=== PATIENT | female | born 1950 | race Caucasian/White ===

== ENCOUNTER → 2017-02-01 | Outpatient (CLI) | payer OTHER ==
[2017-02-01 13:28] LABS: BASO % 0.8 %; BASO ABS # 0.04 K/uL (0-0.2); COMPLETE YES; HEMATOCRIT 44.4 % (37-47); IG% 0.2 %; LYMPH % 41.9 %; MEAN CELL VOLUME 93.3 fL (80-100); MEAN CORPUSCULAR HEMOGLOBIN 31.5 pg (25-34); MEAN CORPUSCULAR HGB CONC 33.8 g/dl (32-36); MEAN PLATELET VOLUME 10.8 fL (7.4-10.4); MONO % 6.9 %; NEUT % 47.2 %; PLATELET COUNT 205 K/uL (130-400); RED BLOOD COUNT 4.76 M/uL (4.2-5.4); WHITE BLOOD COUNT 5.25 K/uL (4.8-10.8)
[2017-02-01 14:19] LABS: ALT/SGPT 27 U/L (12-78); BLOOD UREA NITROGEN 16 mg/dl (7-18); BUN/CREATININE RATIO 19.6 (10-20); CALCIUM 9.1 mg/dl (8.5-10.1); CARBON DIOXIDE 27 mmol/L (21-32); CHLORIDE 108 mmol/L (98-107); CHOLESTEROL 232 mg/dl (0-200); GLUCOSE 103 mg/dl (70-99); POTASSIUM 4.4 mmol/L (3.5-5.1); SODIUM 141 mmol/L (136-145)
[2017-02-01 14:30] LABS: ALB/GLOB RATIO 1.2 (0.9-2); ALKALINE PHOSPHATASE 94 U/L (45-117); AST/SGOT 19 U/L (15-37); CHOLESTEROL/HDL RATIO 3.7; HDL CHOLESTEROL 63 mg/dl; LDL CHOLESTEROL CALCULATED 138 mg/dl; THYROID STIMULATING HORMONE 0.766 uIu/ml (0.300-4.500); TRIGLYCERIDES 154 mg/dl (0-150); VERY LOW DENSITY LIPOPROT CALC 31 mg/dl
== END | disposition home or self-care (01) ==
LOC: C.LABBC 11:42
PROVIDERS: ATTEND Internal Medicine
DX: M85.80 Other specified disorders of bone density and structure, unspecified site (principal)

== ENCOUNTER → 2017-02-03 | Outpatient (CLI) | payer OTHER ==
--- NOTE | 2017-02-03 10:36 | DIAGNOSTIC IMAGING REPORT ---
THYROID ULTRASOUND HISTORY: Simple goiter. COMPARISON: None. FINDINGS: Right lobe: 4.8 x 2.6 x 2.2 cm. There is a slightly heterogeneous solid nodule at the mid pole measuring 2.6 x 1.8 x 1.7 cm. Left lobe: 5.9 x 2.6 x 2.0 cm. There is a similar-appearing slightly heterogeneous solid nodule measuring 3.6 x 2.5 x 2.2 cm. Isthmus: 2 mm in thickness. No nodules. IMPRESSION: Dominant bilateral thyroid nodules as described above. Ultrasound-guided fine-needle aspiration of bilateral nodules is recommended. Electronically signed by: Jeb Wen M.D. 02/03/2017 10:35 AM Dictated Date/Time: 02/03/2017 10:34 AM
== END | disposition home or self-care (01) ==
LOC: C.ULTR 09:27
PROVIDERS: ATTEND Internal Medicine
DX: E04.0 Nontoxic diffuse goiter (principal)

== ENCOUNTER → 2017-02-09 | Outpatient (CLI) | payer OTHER ==
--- NOTE | 2017-02-09 14:15 | MAMMOGRAPHY REPORT ---
BILATERAL DIGITAL SCREENING MAMMOGRAM WITH CAD: 02/09/2017 CLINICAL HISTORY: Routine screening. Patient has no complaints. TECHNIQUE: Current study was also evaluated with a Computer Aided Detection (CAD) system. Bilateral CC and MLO views were obtained. COMPARISON: Comparison is made to exams dated: 02/05/2016 mammogram, 11/08/2014 mammogram, 09/20/2012 m ammogram, 09/21/2013 mammogram, 09/20/2011 mammogram, and 09/16/2010 mammogram - [facility] ter. BREAST COMPOSITION: The tissue of both breasts is heterogeneously dense, which may obscure small mas ses. FINDINGS: No suspicious masses, calcifications, or areas of architectural distortion are noted in ei ther breast. There has been no significant interval change compared to prior exams. Scattered bilater al benign-appearing calcifications are not significantly changed. IMPRESSION: ACR BI-RADS CATEGORY 2: BENIGN There is no mammographic evidence of malignancy. A 1 year screening mammogram is recommended. The pa tient will receive written notification of the results. Approximately 10% of breast cancers are not detected with mammography. A negative mammographic report should not delay biopsy if a clinically suggestive mass is present. Janet Finch M.D. /:02/09/2017 12:33:59 Heater Installer: Fernanda MENDIETAR, M, [facility] letter sent: Normal 1/2 BI-RADS Code: ACR BI-RADS Category 2: Benign
== END | disposition home or self-care (01) ==
LOC: C.MAMM 11:34
PROVIDERS: ATTEND Internal Medicine
DX: Z12.31 Encounter for screening mammogram for malignant neoplasm of breast (principal)

== ENCOUNTER → 2017-02-09 | Outpatient (CLI) | payer OTHER ==
--- NOTE | 2017-02-09 14:02 | DIAGNOSTIC IMAGING REPORT ---
ULTRASOUND-GUIDED BILATERAL THYROID FINE-NEEDLE ASPIRATION BIOPSY CLINICAL HISTORY: Bilateral thyroid nodules COMPARISON STUDY: Thyroid ultrasound dated 02/03/2017 FINDINGS: A timeout was performed. The risks of the procedure were explained to the patient informed consent was obtained. The patient was prepped in sterile fashion. The skin over each thyroid nodule was anesthetized 1% lidocaine. Under ultrasound guidance, each nodule was sampled x2 utilizing a 25-gauge needle. Initial pathologic review indicates satisfactory material for diagnosis. There were no immediate complications. IMPRESSION: Successful ultrasound-guided fine-needle aspiration biopsy of bilateral thyroid nodules. Electronically signed by: Don Lizarraga M.D. 02/09/2017 2:01 PM Dictated Date/Time: 02/09/2017 2:00 PM
== END | disposition home or self-care (01) ==
LOC: C.ULTR 12:23
PROVIDERS: ATTEND Internal Medicine
DX: E04.2 Nontoxic multinodular goiter (principal); Z12.31 Encounter for screening mammogram for malignant neoplasm of breast

== ENCOUNTER → 2017-07-26 | Outpatient (CLI) | payer OTHER ==
[2017-07-26 18:50] LABS: ALBUMIN 3.9 gm/dl (3.4-5.0); ALT/SGPT 29 U/L (12-78); AST/SGOT 14 U/L (15-37); BLOOD UREA NITROGEN 20 mg/dl (7-18); CALCIUM 9.2 mg/dl (8.5-10.1); CARBON DIOXIDE 28 mmol/L (21-32); CREATININE 0.82 mg/dl (0.60-1.20); GLUCOSE 108 mg/dl (70-99); POTASSIUM 3.9 mmol/L (3.5-5.1); SODIUM 139 mmol/L (136-145)
[2017-07-26 18:52] LABS: ALKALINE PHOSPHATASE 98 U/L (45-117); CHOLESTEROL 172 mg/dl (0-200); LDL CHOLESTEROL CALCULATED 86 mg/dl; TOTAL PROTEIN 7.2 gm/dl (6.4-8.2)
== END | disposition home or self-care (01) ==
LOC: C.LABPBG 11:05
PROVIDERS: ATTEND Internal Medicine
DX: E78.5 Hyperlipidemia, unspecified (principal)

== ENCOUNTER → 2017-08-01 | Outpatient (CLI) | payer OTHER | LOC: C.LABPBG 11:21 | PROVIDERS: ATTEND Internal Medicine | DX: Z11.59 Encounter for screening for other viral diseases (principal) ==

== ENCOUNTER 2024-06-11 17:32 | Inpatient (IN) ==
[2024-06-11 19:41] LABS: Basophils # (auto) 0.07 K/uL (0.00-0.20); Basophils % (auto) 0.9 %; Eosinophils % (auto) 1.3 %; Hematocrit (blood only) 39.1 % (37.0-47.0); Hemoglobin 13.6 g/dl (12.0-16.0); Immature Granulocytes # (auto) 0.02 K/uL (0.01-0.20); Immature Granulocytes % (auto) 0.3 %; Lymphocytes # (auto) 1.74 K/uL (1.20-3.40); Lymphocytes % (auto) 22.4 %; Mean Corpuscular Hemoglobin 31.1 pg (25.0-34.0); Mean Corpuscular Hgb Conc 34.8 g/dL (32.0-36.0); Mean Corpuscular Volume 89.3 fL (80.0-100.0); Mean Platelet Volume 10.8 fL (9.4-12.4); Monocytes # (auto) 0.74 K/uL (0.11-0.59); Monocytes % (auto) 9.5 %; Neutrophils % (auto) 65.6 %; Platelet Count 188 K/uL (130-400); RDW Coefficient of Variation 12.4 % (11.5-14.5); RDW Standard Deviation 40.5 fL (36.4-46.3); Red Blood Count 4.38 M/uL (4.20-5.40); White Blood Count 7.77 K/ul (4.8-10.8)
[2024-06-11 19:57] LABS: Alanine Aminotransferase 18 U/L (7-52); Albumin Globulin Ratio 1.4 (0.9-2); Albumin Level 4.4 gm/dl (3.4-5.0); Alkaline Phosphatase 87 U/L (34-104); Anion Gap 9 (3-11); BUN Creatinine Ratio 21.2 (10-20); Bilirubin,Total 0.8 mg/dl (0.2-1.0); Blood Urea Nitrogen 21 mg/dl (6-23); Calcium 9.7 mg/dl (8.6-10.3); Carbon Dioxide 24 mmol/L (21-32); Chloride 106 mmol/L (98-107); Creatinine Clr Calc Pharmacy 53.9 ml/min; Globulin 3.1 gm/dl (2.5-4.0); Glucose 94 mg/dl (70-99(Fasting)); Sodium 139 mmol/L (136-145); Total Protein 7.5 gm/dl (6.0-8.3); Troponin I High Sensitivity 8.5 pg/ml (0-14)
--- NOTE | 2024-06-11 20:14 | XRay Report ---
Exam(s): XR CXR 1 VIEW EXAM: XR Chest, 1 View CLINICAL HISTORY: Reason for exam: Chest pain, nonspecific. TECHNIQUE: Frontal view of the chest. COMPARISON: No relevant prior studies available. FINDINGS: Lungs: Unremarkable. No consolidation. Pleural space: Unremarkable. No pleural effusion or pneumothorax. Heart: Unremarkable. No cardiomegaly or pulmonary vascular congestion. Bones/joints: No acute fracture. No dislocation. IMPRESSION: No evidence of acute cardiopulmonary disease. Electronically signed by: Trena Harrell M.D. 06/11/24 20:14 PM
--- NOTE | 2024-06-11 20:34 | Ultrasound Report ---
Exam(s): US VENOUS LEFT LOWER EXTREMITY EXAM: US Duplex Left Lower Extremity Veins CLINICAL HISTORY: Reason for exam: LLE swelling. TECHNIQUE: Real-time duplex ultrasound scan of the left lower extremity veins integrating B-mode two-dimensional vascular structure, Doppler spectral analysis, color flow Doppler imaging and compression. COMPARISON: No relevant prior studies available. FINDINGS: Deep veins: Unremarkable. No DVT in the visualized common femoral, femoral, proximal deep femoral or popliteal veins. The veins demonstrate normal color flow, are normally compressible, with normal phasic flow and/or augmentation response. Superficial veins: Unremarkable. No thrombus in the visualized great saphenous vein. Soft tissues: No acute findings. IMPRESSION: No evidence of acute DVT. Electronically signed by: Trena Harrell M.D. 06/11/24 20:32 PM
[2024-06-11 21:58] LABS: Potassium 3.7 mmol/L (3.5-5.1)
[2024-06-11] MEDS: hydrALAZINE HCL 20 MG/ML VIAL IV STA (22:30)
[2024-06-11 22:45] LABS: Partial Thromboplastin Time 27 Seconds (21-31)
[2024-06-11] MEDS: OPTIRAY 320 100ml IV ONE (23:23)
[2024-06-11] MEDS: LORazepam 2 MG/1 ML VIAL IV STA (23:45)
[2024-06-12] MEDS: ACETAMINOPHEN 500 MG TAB PO STA (00:36)
[2024-06-12] MEDS: LABETALOL HCL IV 5 MG/ML 20ML IV STA (00:38)
--- NOTE | 2024-06-12 01:03 | CT Scan Report ---
Exam(s): CT ABDOMEN + PELVIS With Contrast IV Amt: 93 ml optiray 320 EXAM: CT Abdomen and Pelvis With Intravenous Contrast CLINICAL HISTORY: Reason for exam: LLE swelling, h/o endometrial CA. TECHNIQUE: Axial computed tomography images of the abdomen and pelvis with intravenous contrast. Automated exposure control was utilized for the study. A dose lowering technique was utilized adhering to the principles of ALARA. CONTRAST: Patient received 93 ml optiray 320 of IV contrast COMPARISON: No relevant prior studies available. FINDINGS: There is a small hiatal hernia. There is subsegmental atelectasis at the lung bases. Liver, gallbladder, spleen, pancreas, and adrenal glands are unremarkable. Right kidney and collecting system are normal. There is moderate left-sided hydroureteronephrosis with delayed enhancement of the left kidney. The left ureters narrowed at the S1 level by a soft tissue mass. Soft tissue mass measures 3 x 4 x 6 cm and encases the external iliac artery and external iliac vein (axial 66, coronal 44). There is suggestion of a short-segment nonocclusive DVT within the external iliac vein. Mass is concerning for metastatic disease in this patient with history of endometrial cancer. Apart from the mass, no enlarged lymph nodes are seen. Aorta is calcified but normal in caliber. There is no free fluid or free air. Appendix is normal. There is no bowel obstruction or inflammation. Scattered diverticula are noted. Hysterectomy is noted. Urinary bladder is unremarkable. There are no acute osseous findings. IMPRESSION: 1. Roughly 3 x 4 x 6 cm soft tissue mass in the left pelvis at the level of the sacroiliac joint, encasing the external iliac artery and vein, concerning for metastasis in this patient with history of endometrial cancer. 2. Suggestion of a short segment nonocclusive DVT in the left external iliac vein at the level of the mass. 3. Moderate left-sided hydroureteronephrosis. The mass either extrinsically compresses or invades the left ureter. Communications: Call Doctor Other Electronically signed by: Trena Harrell M.D. 06/12/24 01:02 AM
--- NOTE | 2024-06-12 01:37 | Urology Consultation ---
Date of Consultation June 12, 2024 Assessment & Plan (1) Hydronephrosis: Patient is being admitted on the hospitalist service. I have communicated directly with this service. From a urologic perspective the following: Appears of the patient has hydronephrosis likely secondary from an underlying mass that was noted on CT scan Would recommend keeping the patient n.p.o. for the present time Will check a urinalysis and culture if indicated and treat accordingly At the present time patient is nontoxic-appearing. She is afebrile and normotensive without tachycardia fever. She also exhibits normal renal function and does not have any urinary symptoms She will be reevaluated by our [facility] urology team and a determination be made patient requires cystoscopy with stent placement Additional recommendations with forthcoming based on her clinical course as unfolds History of Present Illness Reason for Consultation: Hydronephrosis History of Present Illness This is a 73-year-old female who has a past medical history of endometrial cancer. Patient said approximate 4 years ago she had a complete hysterectomy followed by radiation therapy. She says she never required chemotherapy. Cording the patient's she was told that this was a stage I cancer and did not require any further treatment. She presented the emergency department this evening secondary to 5 days of left lower extremity swelling. She denies any injuries to her leg. She denies any recent long trips in a car or airplane. She has no prior history of blood clots. Since arrival emergency department she has had labs and imaging which I independent reviewed. Chest x-ray showed no evidence of pneumonia. She had a left lower extremity venous Doppler that showed no evidence of acute DVT. She also underwent a CT scan of the abdomen pelvis that showed the patient had a soft tissue mass in the left pelvis at the level of the sacroiliac joint measuring approximately 3 x 4 x 6 cm. This mass appeared to encase the external iliac artery and vein and also demonstrated some compression or invasion of the left ureter resulting in moderate left-sided hydronephrosis. Labs included CBC white blood cell count, hemoglobin, hematocrit, platelet count were normal. Coagulation studies were normal. Chemistry profile showed sodium and potassium as well as the BUN and creatinine were normal. Urology was asked to see the patient due to the hydronephrosis and issues with the ureter noted above. The patient says that she has no issues urinating specifically stating she does not have any dysuria or urinary hesitancy. She also denies any hematuria. She has no history of kidney stones. At the time of my interview she was resting comfortably in bed and she was in no distress. Allergies Allergy/AdvReac Type Severity Reaction Status Date / Time No Known Allergies Allergy Verified 06/11/24 17:04 Home Medications Medication Instructions Recorded Confirmed Type cholecalciferol (vitamin D3) 25 25 mcg PO QPM 04/16/20 06/11/24 History mcg (1,000 unit) capsule multivitamin 1 tab PO QPM 04/16/20 06/11/24 History vitamin A-vitamin C-vit E-min 1 tab PO QAM 01/28/21 06/11/24 History tablet baclofen 5 mg tablet 5 mg PO BID PRN muscle spasm #60 05/16/24 06/11/24 Rx tabs atorvastatin 20 mg tablet 20 mg PO DAILY 06/11/24 06/11/24 History Patient History Medical History Bulging lumbar disc HLD (hyperlipidemia) Cardiac murmur 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 Lemon, planning XRT History of tooth extraction Age 17 - [place] Family History Aunt , Passed age 88 of natural causes Breast cancer, Onset Age: 80 Mother , Passed age 69 of [place] Heart disease Myocardial infarction Hypertension Father , Passed age 89 of natural causes No problems noted. Sister Esophageal cancer, Onset Age: 64 Had treatment, doing well now Sister No problems noted. Sister No problems noted. Son No problems noted. Other No family history of adverse response to anesthesia Denies family history of Ovarian cancer Prostate cancer Lung cancer Colorectal cancer Social History Smoking Status: Never smoker Tobacco Type: Cigarettes Age Started Using Tobacco: 17; Age Quit Using Tobacco: 35; packs per day: 1; Second Hand Exposure: Yes (Father smoked in home ); Do You Dip or Chew Tobacco: No; Hx Alcohol Use: Yes Alcohol type: beer and wine Alcohol Intake Frequency Comment: once or twice a week Hx Substance Use: No Preferred Language: Chinese Communication Ability: Effective Visual Impairment: No Limitations Hearing Ability: Normal 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 Beliefs That Will Affect Care: None marital status: Single Current Living Situation: Alone current occupational status: retired current occupation: Retired [employer] Feels Safe at Home: Yes Childhood Exposure to Second-Hand Smoke: Yes Diet: regular Diet Comment: regular caffeine: Yes (coffee morning) during the past year weight has: remained stable Dental Care, Regularly: Yes Physical Activity Frequency: 3-4 Times per Week Seatbelt Use: always Sunscreen Use: Yes Assistive Devices: Glasses Review of Systems Review of Systems: All systems reviewed & are unremarkable except as noted in HPI & below Physical Exam Constitutional: WD/WN, vitals as above Eyes: no conjunctival abnormality ENMT: Ears: no hearing impairment and no external ear abnormality Mouth: no oropharynx abnormality Neck: trachea midline Respiratory: normal respiratory effort; no respiratory distress and no labored breathing Cardiovascular: Rate/Rhythm: regular rate and regular rhythm Gastrointestinal (Abdomen): Abdomen is soft, nondistended, nontender to palpation Musculoskeletal: The patient's lower extremities were examined and compared bilaterally. There is no calf tenderness or swelling of the right lower extremity. There did not appear to be some marked swelling circumferentially at the left lower extremity when compared to the right. There is minimal tenderness with palpation. The patient had palpable DP pulses bilaterally Skin: no rashes Neurologic: moves all extremities Psychiatric: A+Ox3, euthymic affect Genitourinary: No CVA tenderness with percussion bilaterally Results & Data Vital Signs (Past 12 Hours) Vital Signs Temp Pulse Pulse Resp BP BP Pulse Ox 06/12/24 01:04 77 06/12/24 00:53 77 176/88 H 06/12/24 00:45 88 18 183/82 H 97 06/12/24 00:38 86 198/94 H 06/12/24 00:37 89 18 212/110 H 97 06/12/24 00:10 86 18 197/100 H 97 06/12/24 00:05 81 16 207/95 H 98 06/11/24 23:56 85 16 198/86 H 97 06/11/24 23:50 90 18 203/85 H 97 06/11/24 23:43 89 18 201/88 H 98 06/11/24 23:00 198/95 H 06/11/24 22:51 90 18 98 06/11/24 22:35 199/109 H 06/11/24 22:30 89 25 H 06/11/24 22:00 79 12 98 06/11/24 21:51 76 15 97 06/11/24 21:24 82 29 H 98 06/11/24 21:15 79 17 95 06/11/24 21:11 98 06/11/24 21:11 98 06/11/24 21:10 81 20 208/103 H 97 06/11/24 21:09 86 06/11/24 21:06 83 17 99 06/11/24 21:05 218/101 H 06/11/24 21:05 85 18 218/101 H 98 06/11/24 17:33 36.6 C 84 18 216/93 H 96 O2 Del Method 06/12/24 01:04 06/12/24 00:53 06/12/24 00:45 Room Air 06/12/24 00:38 06/12/24 00:37 Room Air 06/12/24 00:10 Room Air 06/12/24 00:05 Room Air 06/11/24 23:56 Room Air 06/11/24 23:50 Room Air 06/11/24 23:43 Room Air 06/11/24 23:00 06/11/24 22:51 06/11/24 22:35 06/11/24 22:30 06/11/24 22:00 06/11/24 21:51 06/11/24 21:24 06/11/24 21:15 06/11/24 21:11 Room Air 06/11/24 21:11 Room Air 06/11/24 21:10 Room Air 06/11/24 21:09 06/11/24 21:06 06/11/24 21:05 06/11/24 21:05 06/11/24 17:33 PG Care Time/CCT Total # of Minutes Spent Total Time Spent with Patient: Total time spent is greater than 50% in coordination of care (as documented) at patient's floor/unit and/or counseling patient: Coding Level of Care Code 46541 INT INP/OBS CARE MIN Diagnoses Hydronephrosis N13.30
--- NOTE | 2024-06-12 01:44 | History & Physical Report ---
"Date of Service June 12, 2024 Assessment & Plan (1) Hydronephrosis: (2) History of endometrial cancer: Plan Gabi Geller is a 73 year-old female with medical history significant for degenerative disc disease, HLD, and history of endometrial cancer (s/p hysterectomy) who presented to the ED due to lower extremity swelling. Patient was admitted to [facility] after CT imaging revealed 3x4x6 cm soft tissue mass in left pelvis and left hydroureteronephrosis plus DVT in left external iliac vein. Left-sided Hydroureteronephrosis | History of Endometrial Cancer -CT A/P showed 3 x 4 x 6 cm soft tissue mass in the left pelvis at the level of the sacroiliac joint and moderate left-sided hydroureteronephrosis -Urology consulted, appreciate recommendations. Will keep NPO while awaiting day time evaluation -UA obtained which appears infected, will initiate Ceftriaxone. 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 Devan Lemon (originally at [facility] at time of her surgery, now is at [facility]) -If timber harvester operator/onc surgery necessary in future, patient would like to be referred back to Dr. Lemon Acute DVT | Left Lower Extremity Edema -Left LE edema for 5 days -CT A/P shows evidence of short segment nonocclusive DVT in the left external iliac vein at the level of the mass -In setting of possible malignancy and while awaiting urology evaluation, will begin heparin drip Hypertension -Systolic BP reaching >200 systolic at times. Received labetalol and hydralazine in ED with improvement -Treating with IV hydralazine PRN -Not on any home anti-hypertensives HDL- continue statin Admit to: med/tele VTE Prophylaxis: Heparin drip Diet: NPO while awaiting urology evaluation Code Status: Full Code History of Present Illness Primary Care Provider: SEBAS Joiner Gabi Geller is a 73 year-old female with medical history significant for degenerative disc disease, HLD, and history of endometrial cancer (s/p hysterectomy) who presented to the ED due to lower extremity swelling. Patient was initially seen at urgent care on 06/11 due to left lower leg swelling since . She is accompanied by her son in the exam room. Denies chest pain or shortness of breath. Has degenerative disc disease, has had some increased back pain recently but attributed this to more activity around the holidays. Patient notes a headache while in the ED which has since resolved. Patient states she is very worried that the finding from CT of her abdomen is a return of her cancer, states she has followed with the timber harvester operator/onc surgeon and radiation oncology locally for several years. Patient states she has not had much to eat or drink today, denies changes in bowel habits. No change in color of urine or dysuria, does feel like she has to urinate more often. ED Course: -L LE venous duplex -CT A/P, chest x-ray -CBC, CMP, UA Allergies Allergy/AdvReac Type Severity Reaction Status Date / Time No Known Allergies Allergy Verified 06/11/24 17:04 Home Medications Medication Instructions Recorded Confirmed Type cholecalciferol (vitamin D3) 25 25 mcg PO QPM 04/16/20 06/11/24 History mcg (1,000 unit) capsule multivitamin 1 tab PO QPM 04/16/20 06/11/24 History vitamin A-vitamin C-vit E-min 1 tab PO QAM 01/28/21 06/11/24 History tablet baclofen 5 mg tablet 5 mg PO BID PRN muscle spasm #60 05/16/24 06/11/24 Rx tabs atorvastatin 20 mg tablet 20 mg PO DAILY 06/11/24 06/11/24 History Past Med/Surg History Problem List (Updated 06/13/24 @ 17:54 by Laure Michelle MD) Pelvic mass UTI (urinary tract infection) due to Enterococcus Hydronephrosis DDD (degenerative disc disease) Cervical spondylosis Chronic pain Cervical Spine area Borderline hypertension Hyperlipidemia LDL goal <100 Impaired glucose metabolism Vitamin D insufficiency Endometrial cancer (Chronic 02/14/20) Transaminitis Tick-borne disease Simple goiter Medical History Bulging lumbar disc HLD (hyperlipidemia) Cardiac murmur no marketing rep; 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 Lemon, planning XRT History of tooth extraction Age 17 - [place] [facility] Family History Aunt , Passed age 88 of natural causes Breast cancer, Onset Age: 80 Mother , Passed age 69 of [place] Heart disease Myocardial infarction Hypertension Father , Passed age 89 of natural causes No problems noted. Sister Esophageal cancer, Onset Age: 64 Had treatment, doing well now Sister No problems noted. Sister No problems noted. Son No problems noted. Other No family history of adverse response to anesthesia Denies family history of Ovarian cancer Prostate cancer Lung cancer Colorectal cancer Social History Smoking Status: Never smoker Tobacco Type: Cigarettes Age Started Using Tobacco: 17; Age Quit Using Tobacco: 35; packs per day: 1; Second Hand Exposure: Yes (Father smoked in home ); Do You Dip or Chew Tobacco: No; Hx Alcohol Use: No Hx Substance Use: No Preferred Language: Belarusian Communication Ability: Effective Visual Impairment: No Limitations Hearing Ability: Normal Rest Room Maid Required: No Beliefs That Will Affect Care: None marital status: Single Current Living Situation: Alone current occupational status: retired 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 Feels Safe at Home: Yes Childhood Exposure to Second-Hand Smoke: Yes Diet: regular Diet Comment: regular caffeine: Yes (coffee morning) during the past year weight has: remained stable Dental Care, Regularly: Yes Physical Activity Frequency: 3-4 Times per Week Seatbelt Use: always Sunscreen Use: Yes Assistive Devices: Glasses Review of Systems Review of Systems: As per above Physical Exam Constitutional: WD/WN, vitals as above Eyes: + anicteric sclerae; no conjunctival abn ormality ENMT: Ears: no external ear abnormality Nose: no external nose abnormality Moist mucous membranes Respiratory: normal respiratory effort, lungs clear to auscultation Cardiovascular: Rate/Rhythm: regular rate and regular rhythm +1 edema of left lower extremity, nonpit ting Gastrointestinal (Abdomen): Inspection/Auscultation: abdomen normal to inspection; abdomen not distended Percussion/Palpation: abdomen soft; abdomen nontender and no guarding Musculoskeletal: Moves all limbs independently Skin: no rashes, warm and dry Psychiatric: A+Ox3, euthymic affect Results & Data Results & Data Vital Signs (Past 12 Hours) Vital Signs Temp Pulse Pulse Resp BP BP Pulse Ox 06/12/24 01:04 77 06/12/24 00:53 77 176/88 H 06/12/24 00:45 88 18 183/82 H 97 06/12/24 00:38 86 198/94 H 06/12/24 00:37 89 18 212/110 H 97 06/12/24 00:10 86 18 197/100 H 97 06/12/24 00:05 81 16 207/95 H 98 06/11/24 23:56 85 16 198/86 H 97 06/11/24 23:50 90 18 203/85 H 97 06/11/24 23:43 89 18 201/88 H 98 06/11/24 23:00 198/95 H 06/11/24 22:51 90 18 98 06/11/24 22:35 199/109 H 06/11/24 22:30 89 25 H 06/11/24 22:00 79 12 98 06/11/24 21:51 76 15 97 06/11/24 21:24 82 29 H 98 06/11/24 21:15 79 17 95 06/11/24 21:11 98 06/11/24 21:11 98 06/11/24 21:10 81 20 208/103 H 97 06/11/24 21:09 86 06/11/24 21:06 83 17 99 06/11/24 21:05 218/101 H 06/11/24 21:05 85 18 218/101 H 98 06/11/24 17:33 36.6 C 84 18 216/93 H 96 O2 Del Method 06/12/24 01:04 06/12/24 00:53 06/12/24 00:45 Room Air 06/12/24 00:38 06/12/24 00:37 Room Air 06/12/24 00:10 Room Air 06/12/24 00:05 Room Air 06/11/24 23:56 Room Air 06/11/24 23:50 Room Air 06/11/24 23:43 Room Air 06/11/24 23:00 06/11/24 22:51 06/11/24 22:35 06/11/24 22:30 06/11/24 22:00 06/11/24 21:51 06/11/24 21:24 06/11/24 21:15 06/11/24 21:11 Room Air 06/11/24 21:11 Room Air 06/11/24 21:10 Room Air 06/11/24 21:09 06/11/24 21:06 06/11/24 21:05 06/11/24 21:05 06/11/24 17:33 Diagnostic Findings Chest X-Ray 06/11/24 17:50 Exam(s): XR CXR 1 VIEW EXAM: XR Chest, 1 View CLINICAL HISTORY: Reason for exam: Chest pain, nonspecific. TECHNIQUE: Frontal view of the chest. COMPARISON: No relevant prior studies available. FINDINGS: Lungs: Unremarkable. No consolidation. Pleural space: Unremarkable. No pleural effusion or pneumothorax. Heart: Unremarkable. No cardiomegaly or pulmonary vascular congestion. Bones/joints: No acute fracture. No dislocation. IMPRESSION: No evidence of acute cardiopulmonary disease. Electronically signed by: Trena Harrell M.D. 06/11/24 20:14 PM Venous Doppler Study 06/11/24 19:12 Exam(s): US VENOUS LEFT LOWER EXTREMITY EXAM: US Duplex Left Lower Extremity Veins CLINICAL HISTORY: Reason for exam: LLE swelling. TECHNIQUE: Real-time duplex ultrasound scan of the left lower extremity veins integrating B-mode two-dimensional vascular structure, Doppler spectral analysis, color flow Doppler imaging and compression. COMPARISON: No relevant prior studies available. FINDINGS: Deep veins: Unremarkable. No DVT in the visualized common femoral, femoral, proximal deep femoral or popliteal veins. The veins demonstrate normal color flow, are normally compressible, with normal phasic flow and/or augmentation response. Superficial veins: Unremarkable. No thrombus in the visualized great saphenous vein. Soft tissues: No acute findings. IMPRESSION: No evidence of acute DVT. Electronically signed by: Trena Harrell M.D. 06/11/24 20:32 PM Abdomen/Pelvis CT 06/11/24 22:25 CR Exam(s): CT ABDOMEN + PELVIS With Contrast IV Amt: 93 ml optiray 320 EXAM: CT Abdomen and Pelvis With Intravenous Contrast CLINICAL HISTORY: Reason for exam: LLE swelling, h/o endometrial CA. TECHNIQUE: Axial computed tomography images of the abdomen and pelvis with intravenous contrast. Automated exposure control was utilized for the study. A dose lowering technique was utilized adhering to the principles of ALARA. CONTRAST: Patient received 93 ml optiray 320 of IV contrast COMPARISON: No relevant prior studies available. FINDINGS: There is a small hiatal hernia. There is subsegmental atelectasis at the lung bases. Liver, gallbladder, spleen, pancreas, and adrenal glands are unremarkable. Right kidney and collecting system are normal. There is moderate left-sided hydroureteronephrosis with delayed enhancement of the left kidney. The left ureters narrowed at the S1 level by a soft tissue mass. Soft tissue mass measures 3 x 4 x 6 cm and encases the external iliac artery and external iliac vein (axial 66, coronal 44). There is suggestion of a short-segment nonocclusive DVT within the external iliac vein. Mass is concerning for metastatic disease in this patient with history of endometrial cancer. Apart from the mass, no enlarged lymph nodes are seen. Aorta is calcified but normal in caliber. There is no free fluid or free air. Appendix is normal. There is no bowel obstruction or inflammation. Scattered diverticula are noted. Hysterectomy is noted. Urinary bladder is unremarkable. There are no acute osseous findings. IMPRESSION: 1. Roughly 3 x 4 x 6 cm soft tissue mass in the left pelvis at the level of the sacroiliac joint, encasing the external iliac artery and vein, concerning for metastasis in this patient with history of endometrial cancer. 2. Suggestion of a short segment nonocclusive DVT in the left external iliac vein at the level of the mass. 3. Moderate left-sided hydroureteronephrosis. The mass either extrinsically compresses or invades the left ureter. Communications: Call Doctor Other Electronically signed by: Trena Harrell M.D. 06/12/24 01:02 AM Supervising Physician Co-Signing Physician Notes Attending addendum: I have physically seen this patient, have supervised the medical residents activities, and agree with the H&P unless as otherwise noted. Assessment and Plan: #Moderate left hydroureteronephrosis/history of endometrial cancer- CT scan abdomen pelvis shows 3 x 4 x 6 cm soft tissue mass in the left pelvis at the level of the SI joint and moderate left sided hydroureteronephrosis NPO Consult urology. Important to assess whether this is a potential for extrinsic and or intrinsic compression Follow urine culture sensitivity Empiric ceftriaxone 2 g IV daily History of previous hysterectomy and radiation treatment for endometrial cancer Concern regarding possibility of recurrence due to the presence of the above mass Patient has follow-up with Dr. Devan Krishnan, presently at [facility] for CONFIDENTIAL SECRETARY oncology surgery #Acute DVT left lower extremity- Short segment of nonocclusive DVT involving the left left external iliac vein Mild mass to be encasing the external iliac artery and vein Begin heparin drip But ultimately will likely need Lovenox if secondary to ongoing cancer #Hypertension- Status post labetalol and hydralazine from the ED Hydralazine 10 mg IV every 4 hours as needed for systolic blood pressure greater than 160 Resident Activity Tracking Resident Involvement: Resident Care Provided Care Provided: Adult [facility]"
[2024-06-12 02:02] LABS: Appearance Urine Clear (Clear); Bacteria Urine Automated 3+ (None Seen); Bilirubin Urine Negative (Negative); Blood Urine Negative (Negative); Cast Urine Automated 0-2 /lpf (0-2); Color Urine Yellow; Glucose Urine UA Negative (Negative); Ketones Urine 1+ (Negative); Leukocyte Esterase Urine Trace (Negative); Nitrite Urine Negative (Negative); Protein Urine Negative (Negative); Specific Gravity Urine > 1.045 (1.000-1.030); Urobilinogen Urine Negative (Negative); pH Urine 6.5 (4.5-7.5)
--- NOTE | 2024-06-12 02:16 | Emergency Department Note ---
ED Provider Note CHIEF COMPLAINT: Left leg swelling HISTORY OF PRESENT ILLNESS: This 73-year-old female patient past medical history of endometrial carcinoma, goiter, impaired glucose metabolism, hyperlipidemia, borderline hypertension presents to the emergency department with complaints of left lower extremity swelling. The patient states she noticed it on Day and it does not seem to be improving. Patient states she was on her feet quite a bit preparing for the holidays. She is concerned about the possibility of a blood clot. She denies any significant chest pain, shortness of breath or abdominal discomfort. She has been urinating as usual. REVIEW OF SYSTEMS: A review of systems was performed with positives and pertinent negatives listed in the history of present illness. 10 systems were reviewed and are otherwise negative. ALLERGIES: see below MEDICATIONS: see below PMH: see below SOCIAL HISTORY: see below DDx: DVT, infectious etiology, pelvic mass, cellulitis among others. PHYSICAL EXAM: Vital signs reviewed. General: Well-appearing 73-year-old female, in no significant distress. HEENT: No scleral icterus, PERRLA, neck supple. Atraumatic. Cardiovascular: Regular rate and rhythm, no extra sounds. Pulmonary: Clear to auscultation bilaterally, normal work of breathing. Abdomen: Soft, nontender, nondistended, positive bowel sounds. Musculoskeletal: Atraumatic, 1-2+ left lower extremity peripheral edema. Neurologic: Patient awake alert and oriented x 3, speech is clear Skin: Warm, dry, no rash EMERGENCY DEPARTMENT COURSE/MDM: [] MONITORING: An order for cardiac monitoring was placed and the patient is noted to be in a normal sinus rhythm at 77 beats per minute. RADIOLOGY: Chest x-ray to my interpretation reveals no evidence of focal lung consolidation or failure. Venous Doppler of the left lower extremity is negative CT imaging of the abdomen pelvis per radiology: IMPRESSION: 1. Roughly 3 x 4 x 6 cm soft tissue mass in the left pelvis at the level of the sacroiliac joint, encasing the external iliac artery and vein, concerning for metastasis in this patient with history of endometrial cancer. 2. Suggestion of a short segment nonocclusive DVT in the left external iliac vein at the level of the mass. 3. Moderate left-sided hydroureteronephrosis. The mass either extrinsically compresses or invades the left ureter. EKG: To my interpretation reveals a sinus rhythm with PVCs at 87 bpm. LVH, QTc of 459. DISPOSITION: Admission Past Med/Surg History Problem List (Updated 06/12/24 @ 01:35 by Chadwick Cristobal PA-C) Hydronephrosis DDD (degenerative disc disease) Cervical spondylosis Chronic pain Cervical Spine area Borderline hypertension Hyperlipidemia LDL goal <100 Impaired glucose metabolism Vitamin D insufficiency Endometrial cancer (Chronic 02/14/20) Transaminitis Tick-borne disease Simple goiter Medical History Bulging lumbar disc HLD (hyperlipidemia) Cardiac murmur no padded box sewer; 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 Lemon, planning XRT History of tooth extraction Age 17 - [place] Teeth Family History Aunt , Passed age 88 of natural causes Breast cancer, Onset Age: 80 Mother , Passed age 69 of [place] Heart disease Myocardial infarction Hypertension Father , Passed age 89 of natural causes No problems noted. Sister Esophageal cancer, Onset Age: 64 Had treatment, doing well now Sister No problems noted. Sister No problems noted. Son No problems noted. Other No family history of adverse response to anesthesia Denies family history of Ovarian cancer Prostate cancer Lung cancer Colorectal cancer Social History Smoking Status: Never smoker Tobacco Type: Cigarettes Age Started Using Tobacco: 17; Age Quit Using Tobacco: 35; packs per day: 1; Second Hand Exposure: Yes (Father smoked in home ); Do You Dip or Chew Tobacco: No; Hx Alcohol Use: Yes Alcohol type: beer and wine Alcohol Intake Frequency Comment: once or twice a week Hx Substance Use: No Preferred Language: Azeri Communication Ability: Effective Visual Impairment: No Limitations Hearing Ability: Normal 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: No Beliefs That Will Affect Care: None marital status: Single Current Living Situation: Alone current occupational status: retired 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 Feels Safe at Home: Yes Childhood Exposure to Second-Hand Smoke: Yes Diet: regular Diet Comment: regular caffeine: Yes (coffee morning) during the past year weight has: remained stable Dental Care, Regularly: Yes Physical Activity Frequency: 3-4 Times per Week Seatbelt Use: always Sunscreen Use: Yes Assistive Devices: Glasses Allergies Allergies Allergy/AdvReac Type Severity Reaction Status Date / Time No Known Allergies Allergy Verified 06/11/24 17:04 Home Meds Home Medications Medication Instructions Recorded Confirmed cholecalciferol (vitamin D3) 25 25 mcg PO QPM 04/16/20 06/11/24 mcg (1,000 unit) capsule multivitamin 1 tab PO QPM 04/16/20 06/11/24 vitamin A-vitamin C-vit E-min 1 tab PO QAM 01/28/21 06/11/24 tablet atorvastatin 20 mg tablet 20 mg PO DAILY 06/11/24 06/11/24 Previous Rx's Medication Instructions Recorded baclofen 5 mg tablet 5 mg PO BID PRN muscle spasm #60 05/16/24 tabs Results & Data (ED) Vital Signs Vital Signs - 24 hr 06/11/24 17:33 06/11/24 21:05 06/11/24 21:05 Temperature 36.6 C Temperature Source Temporal Artery Scan Pulse Rate 84 85 Pulse Rate [Apical] Pulse Rate from SpO2 Sensor Respiratory Rate 18 18 Respiratory Effort / Characteristics Respiratory Depth Respiratory Pattern Blood Pressure 216/93 H 218/101 H 218/101 H Blood Pressure [Right Arm] Blood Pressure Mean 134 141 141 Blood Pressure Mean [Right Arm] Pulse Oximetry 96 98 Oxygen Delivery Method Sepsis Recent Fever Within 48 Hours No Sepsis New/Unexplained Change in Mental Status N/A Sepsis Action Taken by Nursing No Action Required 06/11/24 21:06 06/11/24 21:09 06/11/24 21:10 Temperature Temperature Source Pulse Rate 83 86 Pulse Rate [Apical] 81 Pulse Rate from SpO2 Sensor 82 Respiratory Rate 17 20 Respiratory Effort / Characteristics Non-Labored Spontaneous Respiratory Depth Normal Respiratory Pattern Regular Blood Pressure Blood Pressure [Right Arm] 208/103 H Blood Pressure Mean Blood Pressure Mean [Right Arm] 138 Pulse Oximetry 99 97 Oxygen Delivery Method Room Air Sepsis Recent Fever Within 48 Hours Sepsis New/Unexplained Change in Mental Status Sepsis Action Taken by Nursing 06/11/24 21:11 06/11/24 21:11 06/11/24 21:15 Temperature Temperature Source Pulse Rate 79 Pulse Rate [Apical] Pulse Rate from SpO2 Sensor 80 Respiratory Rate 17 Respiratory Effort / Characteristics Respiratory Depth Respiratory Pattern Blood Pressure Blood Pressure [Right Arm] Blood Pressure Mean Blood Pressure Mean [Right Arm] Pulse Oximetry 98 98 95 Oxygen Delivery Method Room Air Room Air Sepsis Recent Fever Within 48 Hours Sepsis New/Unexplained Change in Mental Status Sepsis Action Taken by Nursing 06/11/24 21:24 06/11/24 21:51 06/11/24 22:00 Temperature Temperature Source Pulse Rate 82 76 79 Pulse Rate [Apical] Pulse Rate from SpO2 Sensor 83 76 80 Respiratory Rate 29 H 15 12 Respiratory Effort / Characteristics Respiratory Depth Respiratory Pattern Blood Pressure Blood Pressure [Right Arm] Blood Pressure Mean Blood Pressure Mean [Right Arm] Pulse Oximetry 98 97 98 Oxygen Delivery Method Sepsis Recent Fever Within 48 Hours Sepsis New/Unexplained Change in Mental Status Sepsis Action Taken by Nursing 06/11/24 22:30 06/11/24 22:35 06/11/24 22:51 Temperature Temperature Source Pulse Rate 89 90 Pulse Rate [Apical] Pulse Rate from SpO2 Sensor 90 Respiratory Rate 25 H 18 Respiratory Effort / Characteristics Respiratory Depth Respiratory Pattern Blood Pressure 199/109 H Blood Pressure [Right Arm] Blood Pressure Mean 149 Blood Pressure Mean [Right Arm] Pulse Oximetry 98 Oxygen Delivery Method Sepsis Recent Fever Within 48 Hours Sepsis New/Unexplained Change in Mental Status Sepsis Action Taken by Nursing 06/11/24 23:00 06/11/24 23:43 06/11/24 23:50 Temperature Temperature Source Pulse Rate 90 Pulse Rate [Apical] 89 Pulse Rate from SpO2 Sensor Respiratory Rate 18 18 Respiratory Effort / Characteristics Respiratory Depth Respiratory Pattern Blood Pressure 198/95 H 203/85 H Blood Pressure [Right Arm] 201/88 H Blood Pressure Mean 138 107 Blood Pressure Mean [Right Arm] 125 Pulse Oximetry 98 97 Oxygen Delivery Method Room Air Room Air Sepsis Recent Fever Within 48 Hours Sepsis New/Unexplained Change in Mental Status Sepsis Action Taken by Nursing 06/11/24 23:56 06/12/24 00:05 06/12/24 00:10 Temperature Temperature Source Pulse Rate 85 81 86 Pulse Rate [Apical] Pulse Rate from SpO2 Sensor Respiratory Rate 16 16 18 Respiratory Effort / Characteristics Respiratory Depth Respiratory Pattern Blood Pressure 198/86 H 207/95 H 197/100 H Blood Pressure [Right Arm] Blood Pressure Mean 133 143 140 Blood Pressure Mean [Right Arm] Pulse Oximetry 97 98 97 Oxygen Delivery Method Room Air Room Air Room Air Sepsis Recent Fever Within 48 Hours Sepsis New/Unexplained Change in Mental Status Sepsis Action Taken by Nursing 06/12/24 00:37 06/12/24 00:38 06/12/24 00:45 Temperature Temperature Source Pulse Rate 86 88 Pulse Rate [Apical] 89 Pulse Rate from SpO2 Sensor Respiratory Rate 18 18 Respiratory Effort / Characteristics Respiratory Depth Respiratory Pattern Blood Pressure 198/94 H 183/82 H Blood Pressure [Right Arm] 212/110 H Blood Pressure Mean 110 Blood Pressure Mean [Right Arm] 144 Pulse Oximetry 97 97 Oxygen Delivery Method Room Air Room Air Sepsis Recent Fever Within 48 Hours Sepsis New/Unexplained Change in Mental Status Sepsis Action Taken by Nursing 06/12/24 00:53 06/12/24 01:04 Temperature Temperature Source Pulse Rate 77 77 Pulse Rate [Apical] Pulse Rate from SpO2 Sensor Respiratory Rate Respiratory Effort / Characteristics Respiratory Depth Respiratory Pattern Blood Pressure 176/88 H Blood Pressure [Right Arm] Blood Pressure Mean Blood Pressure Mean [Right Arm] Pulse Oximetry Oxygen Delivery Method Sepsis Recent Fever Within 48 Hours Sepsis New/Unexplained Change in Mental Status Sepsis Action Taken by Custodial Medications Current Medication List: was personally reviewed by me Laboratory Data Attestation: I reviewed the patient's lab results. 06/11/24 19:21 06/11/24 21:27 Lab Results 06/11/24 06/11/24 06/12/24 Range/Units 19:21 21:27 01:49 WBC 7.77 (4.8-10.8) K/ul RBC 4.38 (4.20-5.40) M/uL Hgb 13.6 (12.0-16.0) g/dl Hct 39.1 (37.0-47.0) % MCV 89.3 (80.0-100.0) fL MCH 31.1 (25.0-34.0) pg MCHC 34.8 (32.0-36.0) g/dL RDW Std Deviation 40.5 (36.4-46.3) fL RDW Coeff of Nico 12.4 (11.5-14.5) % Plt Count 188 (130-400) K/uL MPV 10.8 (9.4-12.4) fL Immature Gran % (Auto) 0.3 % Neut % (Auto) 65.6 % Lymph % (Auto) 22.4 % Weld % (Auto) 9.5 % Eos % (Auto) 1.3 % Baso % (Auto) 0.9 % Neut # (Auto) 5.10 (1.40-6.50) K/uL Lymph # (Auto) 1.74 (1.20-3.40) K/uL Weld # (Auto) 0.74 H (0.11-0.59) K/uL Eos # (Auto) 0.10 (0.00-0.50) K/uL Baso # (Auto) 0.07 (0.00-0.20) K/uL Immature Gran # (Auto) 0.02 (0.01-0.20) K/uL PT Cancelled 11.0 INR Cancelled 1.0 APTT Cancelled 27 PTT Ratio Cancelled 1.0 Sodium 139 (136-145) mmol/L Potassium TNP 3.7 Chloride 106 (98-107) mmol/L Carbon Dioxide 24 (21-32) mmol/L Anion Gap 9 (3-11) BUN 21 (6-23) mg/dl Creatinine 0.99 (0.6-1.2) mg/dl Est Cr Clr Drug Dosing 53.9 ml/min eGFR 59.83 BUN/Creatinine Ratio 21.2 H (10-20) Glucose 94 (70-99(Fasting)) mg/dl Calcium 9.7 (8.6-10.3) mg/dl Total Bilirubin 0.8 (0.2-1.0) mg/dl AST TNP 18 ALT 18 (7-52) U/L Alkaline Phosphatase 87 (34-104) U/L Troponin I High Sens 8.5 (0-14) pg/ml B-Natriuretic Peptide 35 (0-100) pg/ml Total Protein 7.5 (6.0-8.3) gm/dl Albumin 4.4 (3.4-5.0) gm/dl Globulin 3.1 (2.5-4.0) gm/dl Albumin/Globulin Ratio 1.4 (0.9-2) Urine Color Yellow Urine Appearance Clear (Clear) Urine pH 6.5 (4.5-7.5) Ur Specific [place] > 1.045 H (1.000-1.030) Urine Protein Negative (Negative) Urine Glucose (UA) Negative (Negative) Urine Ketones 1+ H (Negative) Urine Blood Negative (Negative) Urine Nitrite Negative (Negative) Urine Bilirubin Negative (Negative) Urine Urobilinogen Negative (Negative) Ur Leukocyte Esterase Trace H (Negative) Urine WBC (Auto) 6-10 H (0-5) /hpf Urine RBC (Auto) 3-5 H (0-2) /hpf U Hyaline Cast (Auto) 0-2 (0-2) /lpf U Epithel Cells (Auto) 3-5 H (0-2) /hpf Urine Bacteria (Auto) 3+ H (None Seen) Administered Medications Discontinued Medications Acetaminophen (Acetaminophen 500 Mg Tab) 1,000 mg PO NOW STA Stop: 06/12/24 00:27 Last Admin: 06/12/24 00:36 Dose: 1,000 mg Documented By: AMBROCIO Hydralazine HCl (Hydralazine Hcl 20 Mg/Ml Vial) 10 mg IV NOW STA Stop: 06/11/24 22:26 Last Admin: 06/11/24 22:30 Dose: 10 mg Documented By: MARISOL Ioversol (Optiray 320 100ml) 100 ml IV ONCE ONE Stop: 06/11/24 23:23 Last Admin: 06/11/24 23:23 Dose: 93 ml Documented By: BRENDAN Labetalol HCl (Labetalol Hcl Iv 5 Mg/Ml 20ml) 10 mg IV NOW STA Stop: 06/12/24 00:27 Last Admin: 06/12/24 00:38 Dose: 10 mg Documented By: AMBROCIO Lorazepam (Lorazepam 2 Mg/1 Ml Vial) 0.5 mg IV NOW STA Stop: 06/11/24 23:02 Last Admin: 06/11/24 23:45 Dose: 0.5 mg Documented By: AMBROCIO Imaging Data Radiologist's Impression: Chest X-Ray 06/11/24 17:50 Exam(s): XR CXR 1 VIEW EXAM: XR Chest, 1 View CLINICAL HISTORY: Reason for exam: Chest pain, nonspecific. TECHNIQUE: Frontal view of the chest. COMPARISON: No relevant prior studies available. FINDINGS: Lungs: Unremarkable. No consolidation. Pleural space: Unremarkable. No pleural effusion or pneumothorax. Heart: Unremarkable. No cardiomegaly or pulmonary vascular congestion. Bones/joints: No acute fracture. No dislocation. IMPRESSION: No evidence of acute cardiopulmonary disease. Electronically signed by: Trena Harrell M.D. 06/11/24 20:14 PM Venous Doppler Study 06/11/24 19:12 Exam(s): US VENOUS LEFT LOWER EXTREMITY EXAM: US Duplex Left Lower Extremity Veins CLINICAL HISTORY: Reason for exam: LLE swelling. TECHNIQUE: Real-time duplex ultrasound scan of the left lower extremity veins integrating B-mode two-dimensional vascular structure, Doppler spectral analysis, color flow Doppler imaging and compression. COMPARISON: No relevant prior studies available. FINDINGS: Deep veins: Unremarkable. No DVT in the visualized common femoral, femoral, proximal deep femoral or popliteal veins. The veins demonstrate normal color flow, are normally compressible, with normal phasic flow and/or augmentation response. Superficial veins: Unremarkable. No thrombus in the visualized great saphenous vein. Soft tissues: No acute findings. IMPRESSION: No evidence of acute DVT. Electronically signed by: Trena Harrell M.D. 06/11/24 20:32 PM Abdomen/Pelvis CT 06/11/24 22:25 CR Exam(s): CT ABDOMEN + PELVIS With Contrast IV Amt: 93 ml optiray 320 EXAM: CT Abdomen and Pelvis With Intravenous Contrast CLINICAL HISTORY: Reason for exam: LLE swelling, h/o endometrial CA. TECHNIQUE: Axial computed tomography images of the abdomen and pelvis with intravenous contrast. Automated exposure control was utilized for the study. A dose lowering technique was utilized adhering to the principles of ALARA. CONTRAST: Patient received 93 ml optiray 320 of IV contrast COMPARISON: No relevant prior studies available. FINDINGS: There is a small hiatal hernia. There is subsegmental atelectasis at the lung bases. Liver, gallbladder, spleen, pancreas, and adrenal glands are unremarkable. Right kidney and collecting system are normal. There is moderate left-sided hydroureteronephrosis with delayed enhancement of the left kidney. The left ureters narrowed at the S1 level by a soft tissue mass. Soft tissue mass measures 3 x 4 x 6 cm and encases the external iliac artery and external iliac vein (axial 66, coronal 44). There is suggestion of a short-segment nonocclusive DVT within the external iliac vein. Mass is concerning for metastatic disease in this patient with history of endometrial cancer. Apart from the mass, no enlarged lymph nodes are seen. Aorta is calcified but normal in caliber. There is no free fluid or free air. Appendix is normal. There is no bowel obstruction or inflammation. Scattered diverticula are noted. Hysterectomy is noted. Urinary bladder is unremarkable. There are no acute osseous findings. IMPRESSION: 1. Roughly 3 x 4 x 6 cm soft tissue mass in the left pelvis at the level of the sacroiliac joint, encasing the external iliac artery and vein, concerning for metastasis in this patient with history of endometrial cancer. 2. Suggestion of a short segment nonocclusive DVT in the left external iliac vein at the level of the mass. 3. Moderate left-sided hydroureteronephrosis. The mass either extrinsically compresses or invades the left ureter. Communications: Call Doctor Other Electronically signed by: Trena Harrell M.D. 06/12/24 01:02 AM Discharge Plan Visit Data Chief Complaint: Swelling/Edema to Extremity Stated Complaint: SWELLING IN LEGS BILATERAL. HIGH BP ED Provider: Tiff Plata Forms Stand Alone Forms: [facility] Prescriptions Prescriptions: No Action cholecalciferol (vitamin D3) 25 mcg (1,000 unit) capsule 25 mcg PO QPM multivitamin Tablet 1 tab PO QPM baclofen 5 mg tablet 5 mg PO BID PRN (Reason: muscle spasm) Qty: 60 2RF vitamin A-vitamin C-vit E-min Tablet 1 tab PO QAM atorvastatin 20 mg tablet 20 mg PO DAILY Rx Instructions: take 1 tablet by mouth daily Referrals Referrals: Tristen Disla CRNP [Primary Care Provider] -
[2024-06-12] MEDS ORDERED: BACLOFEN 10 MG TAB PO PRN (03:12)
[2024-06-12] MEDS ORDERED: POLYETHYLENE (MIRALAX) 17 GM PACK PO PRN (03:12)
[2024-06-12] MEDS ORDERED: ONDANSETRON INJ 2 MG/ML 2 ML VIAL IV PRN ×2 (03:12→10:30)
[2024-06-12] MEDS: cefTRIAXone SODIUM 2,000 MG/50 ML BAG IV SCH (04:43)
[2024-06-12] MEDS: HEPARIN SODIUM/DEXTROSE 25,000 UNITS/500 ML BAG IV SCH (04:43)
[2024-06-12] MEDS: Heparin IV Adult Wt-Based Standard *NO* INITIAL Bolus Protocol IV STA (04:44)
[2024-06-12 05:19] LABS: Basophils # (auto) 0.04 K/uL (0.00-0.20); Basophils % (auto) 0.6 %; Eosinophils # (auto) 0.09 K/uL (0.00-0.50); Eosinophils % (auto) 1.5 %; Hematocrit (blood only) 38.7 % (37.0-47.0); Hemoglobin 13.4 g/dl (12.0-16.0); Immature Granulocytes # (auto) 0.01 K/uL (0.01-0.20); Immature Granulocytes % (auto) 0.2 %; Lymphocytes # (auto) 1.55 K/uL (1.20-3.40); Mean Corpuscular Hemoglobin 30.9 pg (25.0-34.0); Mean Corpuscular Hgb Conc 34.6 g/dL (32.0-36.0); Mean Corpuscular Volume 89.4 fL (80.0-100.0); Mean Platelet Volume 10.8 fL (9.4-12.4); Monocytes # (auto) 0.64 K/uL (0.11-0.59); Monocytes % (auto) 10.3 %; Neutrophils # (auto) 3.86 K/uL (1.40-6.50); Neutrophils % (auto) 62.4 %; Platelet Count 194 K/uL (130-400); RDW Coefficient of Variation 12.4 % (11.5-14.5); RDW Standard Deviation 40.9 fL (36.4-46.3); Red Blood Count 4.33 M/uL (4.20-5.40); White Blood Count 6.19 K/ul (4.8-10.8)
[2024-06-12 05:32] LABS: Albumin Globulin Ratio 1.4 (0.9-2); Albumin Level 4.1 gm/dl (3.4-5.0); Bilirubin,Total 0.7 mg/dl (0.2-1.0); Calcium 9.4 mg/dl (8.6-10.3); Creatinine Clr Calc Pharmacy 53.4 ml/min; Globulin 2.9 gm/dl (2.5-4.0); Potassium 3.8 mmol/L (3.5-5.1)
--- NOTE | 2024-06-12 08:56 | Urology Progress Note ---
Date of Service June 12, 2024 Assessment & Plan (1) Hydronephrosis: (2) UTI (urinary tract infection) due to Enterococcus: Plan We reviewed her imaging, specifically that there is left hydronephrosis and a delayed nephrogram. This suggest that there is functional obstruction of the left kidney. Urinalysis is also suggestive of infection. Would recommend urine culture, continue ceftriaxone and narrow as culture data becomes available. We discussed the role for cystoscopy, left retrograde pyelogram and left ureteral stent placement. Ideally, this would preserve renal function and allow any infection of the kidney to drain. We reviewed that the long-term plan for the stent would depend on the soft tissue mass. We reviewed risks and benefits of surgery including bleeding, infection, injury to nearby structures, inability to place stent, need for additional procedures. She expressed understanding and would like to proceed with cystoscopy, left retrograde pyelogram and left ureteral stent placement. Admission and Anticipated Discharge Date Admission Date: June 12, 2024 Subjective Denies any significant flank pain Blood pressure remains elevated although fluctuating Feeling okay this morning otherwise, although anxious about possible tumor recurrence Physical Exam Physical Exam: Well-appearing, NAD, resting in bed Results & Data Vital Signs (Past 12 Hours) Vital Signs Temp Pulse Pulse Resp BP BP Pulse Ox 06/12/24 07:01 75 06/12/24 06:59 36.7 C 77 18 192/97 H 97 06/12/24 06:57 06/12/24 06:00 69 16 128/74 93 06/12/24 05:30 67 16 162/98 H 95 06/12/24 05:00 80 16 165/85 H 96 06/12/24 05:00 36.9 C 06/12/24 04:00 68 16 162/78 H 93 06/12/24 03:30 66 20 146/108 H 93 06/12/24 03:00 72 18 189/97 H 95 06/12/24 02:01 80 20 172/95 H 95 06/12/24 01:30 83 20 176/91 H 96 06/12/24 01:05 76 172/90 H 96 06/12/24 01:04 77 06/12/24 00:55 77 18 158/74 H 96 06/12/24 00:53 77 176/88 H 06/12/24 00:45 88 18 183/82 H 97 06/12/24 00:38 86 198/94 H 06/12/24 00:37 89 18 212/110 H 97 06/12/24 00:10 86 18 197/100 H 97 06/12/24 00:05 81 16 207/95 H 98 06/11/24 23:56 85 16 198/86 H 97 06/11/24 23:50 90 18 203/85 H 97 06/11/24 23:43 89 18 201/88 H 98 06/11/24 23:00 198/95 H 06/11/24 22:51 90 18 98 06/11/24 22:35 199/109 H 06/11/24 22:30 89 25 H 06/11/24 22:00 79 12 98 06/11/24 21:51 76 15 97 06/11/24 21:24 82 29 H 98 06/11/24 21:15 79 17 95 06/11/24 21:11 98 06/11/24 21:11 98 06/11/24 21:10 81 20 208/103 H 97 06/11/24 21:09 86 06/11/24 21:06 83 17 99 06/11/24 21:05 218/101 H 06/11/24 21:05 85 18 218/101 H 98 Pulse Ox O2 Del Method O2 Del Method 06/12/24 07:01 06/12/24 06:59 Room Air 06/12/24 06:57 97 Room Air 06/12/24 06:00 Room Air 06/12/24 05:30 Room Air 06/12/24 05:00 Room Air 06/12/24 05:00 06/12/24 04:00 Room Air 06/12/24 03:30 Room Air 06/12/24 03:00 Room Air 06/12/24 02:01 Room Air 06/12/24 01:30 Room Air 06/12/24 01:05 Room Air 06/12/24 01:04 06/12/24 00:55 Room Air 06/12/24 00:53 06/12/24 00:45 Room Air 06/12/24 00:38 06/12/24 00:37 Room Air 06/12/24 00:10 Room Air 06/12/24 00:05 Room Air 06/11/24 23:56 Room Air 06/11/24 23:50 Room Air 06/11/24 23:43 Room Air 06/11/24 23:00 06/11/24 22:51 06/11/24 22:35 06/11/24 22:30 06/11/24 22:00 06/11/24 21:51 06/11/24 21:24 06/11/24 21:15 06/11/24 21:11 Room Air 06/11/24 21:11 Room Air 06/11/24 21:10 Room Air 06/11/24 21:09 06/11/24 21:06 06/11/24 21:05 06/11/24 21:05 PG Care Time/CCT Total # of Minutes Spent Total Time Spent with Patient: Total time spent is greater than 50% in coordination of care (as documented) at patient's floor/unit and/or counseling patient: Coding Level of Care Code 83941 SUB INP/OBS CARE 07/07MIN Diagnoses Hydronephrosis N13.30 UTI (urinary tract infection) due to Enterococcus N39.0; B95.2
[2024-06-12] MEDS ORDERED: fentaNYL citrate PF 100 MCG/2 ML VIAL ONE (09:34)
[2024-06-12] MEDS ORDERED: MIDAZOLAM HCL 1 MG/ML 2ML VIAL ONE ×2 (09:34→11:46)
[2024-06-12] MEDS ORDERED: LIDOCAINE 2% 2 ML VIAL/AMP(20MG/ML) INFIL ONE (09:35)
[2024-06-12] MEDS ORDERED: PROPOFOL IV EMULSION 10 MG/ML 20 ML VIAL IV ONE ×2 (09:35→11:40)
[2024-06-12] MEDS ORDERED: ONDANSETRON INJ 2 MG/ML 2 ML VIAL ONE (09:35)
--- NOTE | 2024-06-12 10:13 | Anesthesiology Consultation ---
Date of Service June 12, 2024 Assessment & Plan (1) Pre-op evaluation: Chart Review Chart Review: Acceptable Risk for Surgery History Surgery Operation Date: 06/12/24 09:20 Proposed Procedures p Cystoscopy, Left Stent Placement - Abhinav Alicea MD Height/Weight Height: 5 ft 6 in Weight: 82.3 kg Allergies Allergy/AdvReac Type Severity Reaction Status Date / Time No Known Allergies Allergy Verified 06/11/24 17:04 Medications Home Medications Medication Instructions Recorded Confirmed Last Taken cholecalciferol (vitamin D3) 25 25 mcg PO QPM 04/16/20 06/11/24 02/04/21 mcg (1,000 unit) capsule multivitamin 1 tab PO QPM 04/16/20 06/11/24 02/04/21 vitamin A-vitamin C-vit E-min 1 tab PO QAM 01/28/21 06/11/24 02/04/21 tablet baclofen 5 mg tablet 5 mg PO BID PRN muscle spasm #60 05/16/24 06/11/24 Unknown tabs atorvastatin 20 mg tablet 20 mg PO DAILY 06/11/24 06/11/24 Unknown Active Medications Generic Name Dose Route Start Last Admin Trade Name Freq PRN Reason Stop Dose Admin Heparin Sodium/Dextrose 25,000 units in 500 mls @ 25 mls/hr 06/12/24 03:12 06/12/24 04:43 Heparin Sodium/Dextrose IV 07/12/24 03:11 1,250 units/hr .Q20H JEANNA 25 mls/hr Administration Protocol 1,250 UNITS/HR Ceftriaxone Sodium 2,000 mg in 50 mls @ 100 mls/hr 06/12/24 04:00 06/12/24 05:13 Rocephin IV 06/17/24 03:29 Infused Q24H JEANNA Infusion NPO Date Last Intake of Fluids: 06/11/24 Time Last Intake of Fluids: 10:00 Date Last Intake of Solids: 06/11/24 Time Last Intake of Solids: 10:00 Past Medical History Medical History Bulging lumbar disc HLD (hyperlipidemia) Cardiac murmur 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 Sister Esophageal cancer, Onset Age: 64 Had treatment, doing well now Sister No problems noted. Sister No problems noted. Son No problems noted. Other No family history of adverse response to anesthesia Denies family history of Ovarian cancer Prostate cancer Lung cancer Colorectal cancer Past Surgical History Surgical History History of colonoscopy History of robot-assisted laparoscopic hysterectomy (03/06/20) with bso, Dr. Lemon, planning XRT History of tooth extraction Age 17 - [place] [facility] Social History Smoking Status: Never smoker tobacco type: cigarettes Do You Dip or Chew Tobacco: No Hx Alcohol Use: No Alcohol type: beer and wine alcohol intake frequency: a few times a month Hx Substance Use: No substance use type: does not use Physical Exam Vital Signs Last Vital Signs Temp 36.8 C 06/12/24 09:55 Pulse 78 06/12/24 09:55 Resp 18 06/12/24 09:55 BP 176/100 H 06/12/24 09:55 Pulse Ox 96 06/12/24 09:55 O2 Del Method Room Air 06/12/24 09:55 Testing Laboratory Results 06/12/24 04:22 06/12/24 04:22 PT 11.0 Seconds (9.0-12.0) 06/11/24 21:27 INR 1.0 (0.9-1.1) 06/11/24 21:27 APTT 27 Seconds (21-31) 06/11/24 21:27 Urine Color Yellow 06/12/24 01:49 Urine Appearance Clear (Clear) 06/12/24 01:49 Urine pH 6.5 (4.5-7.5) 06/12/24 01:49 Ur Specific Cross > 1.045 (1.000-1.030) H 06/12/24 01:49 Urine Protein Negative (Negative) 06/12/24 01:49 Urine Glucose (UA) Negative (Negative) 06/12/24 01:49 Urine Ketones 1+ (Negative) H 06/12/24 01:49 Urine Nitrite Negative (Negative) 06/12/24 01:49 Ur Leukocyte Esterase Trace (Negative) H 06/12/24 01:49 Urine WBC (Auto) 6-10 /hpf (0-5) H 06/12/24 01:49 Urine RBC (Auto) 3-5 /hpf (0-2) H 06/12/24 01:49 U Hyaline Cast (Auto) 0-2 /lpf (0-2) 06/12/24 01:49 U Epithel Cells (Auto) 3-5 /hpf (0-2) H 06/12/24 01:49 Urine Bacteria (Auto) 3+ (None Seen) H 06/12/24 01:49 Electrocardiogram Date: 06/11/24 Findings: + NSR @ (87 with PVC's) and + poor R wave progression
--- NOTE | 2024-06-12 10:13 | Electrocardiogram Report ---
Test Reason : Blood Pressure : */* mmHG Vent. Rate : 87 BPM Atrial Rate : 87 BPM P-R Int : 152 ms QRS Dur : 96 ms QT Int : 382 ms P-R-T Axes : 51 2 62 degrees QTcB Int : 459 ms Sinus rhythm with occasional Premature ventricular complexes Minimal voltage criteria for LVH, may be normal variant ( R in aVL ) Poor R wave progression, consider anterior NV vs. lead placement vs. LVH Abnormal ECG No previous ECGs available Confirmed by Wolfgang Galvan ([id number]) on 06/12/2024 10:12:56 AM Referred By: Confirmed By: Wolfgang Galvan
[2024-06-12] MEDS ORDERED: Nursing to Pharmacy Communication SCH (10:15)
[2024-06-12] MEDS: LR 15ML/HR IV SCH (10:18)
[2024-06-12] MEDS ORDERED: ATROPINE SULFATE 0.1 MG/ML 10ML SYR IV PRN (10:30)
[2024-06-12] MEDS ORDERED: LABETALOL HCL IV 5 MG/ML 20ML IV PRN (10:30)
[2024-06-12] MEDS ORDERED: fentaNYL citrate PF 100 MCG/2 ML VIAL IV PRN (10:30)
--- NOTE | 2024-06-12 11:07 | Operative Report ---
PG Post Operative Report Pre & Post Diagnosis Operation Date: 06/12/24 09:20 Pre-Op Diagnosis: Hydronephrosis Post-Op Diagnosis: Hydronephrosis I identified the patient and participated in the time-out.: Yes Procedure Operation Date: 06/12/24 09:20 Actual Procedures p Cystoscopy, Left Stent Placement - Abhinav Alicea MD Surgeon Abhinav Alicea MD News Video Editor None Estimated Blood Loss 0 Findings Consistent with Post-Op Diagnosis Specimens None Drains 6 Welsh by 24 cm double-J ureteral stent the left ureter Anesthesia Type MAC Complications none Disposition Accompanied Patient To Recovery: Yes Disposition: Recovery Room Indications This is a 73-year-old female with left-sided hydronephrosis extending down the ureter to a possible soft tissue mass in the pelvis. She is brought to the OR for left ureteral stent placement. Description of Procedure The patient was identified in the holding area and informed consent was confirmed. She was marked on the left side, then was taken to the operating room where anesthesia was initiated. She was placed in the dorsal lithotomy position with all pressure points appropriately padded. She was prepped and draped in the usual sterile fashion and a preoperative timeout was performed. A well-lubricated cystoscope was inserted per urethra and panendoscopy was performed. The urethra was normal in appearance. The bladder was of normal size with ureteral orifices in orthotopic position. The left ureteral orifice was identified and cannulated with a 5 Welsh open- ended catheter. A retrograde pyelogram was performed demonstrating the distal ureter was normal in course and caliber. At the level of the pelvic brim there was an abrupt transition point beyond which the ureter was dilated. There was hydronephrosis of the left kidney. A 0.038" ZIPwire was advanced to the level of the kidney under fluoroscopic guidance. Over the wire, a 6 Welsh x 24 centimeter double-J ureteral stent was advanced. When the wire was removed, the proximal curl was visualized in the kidney with x-ray, and the distal curl visualized in the bladder with the cystoscope. At this point the bladder was drained and all instrumentation was removed. The patient was then awakened from anesthesia and was brought to the PACU in stable condition. I attest to the content of the Intraoperative Record and any orders documented therein. Any exceptions are noted below.
--- NOTE | 2024-06-12 12:39 | Anesthesiology Progress Note ---
Date of Service June 12, 2024 Anesthesia Post Procedure Vital Signs Vital Signs: Temp Pulse Pulse Pulse Resp BP BP 06/12/24 12:30 69 14 139/68 06/12/24 12:15 64 17 142/73 H 06/12/24 12:00 67 13 155/81 H 06/12/24 11:45 68 16 175/73 H 06/12/24 11:35 71 16 173/74 H 06/12/24 11:25 67 16 163/63 H 06/12/24 11:15 36.5 C 68 20 141/78 H 06/12/24 11:08 36.0 C L 72 13 142/88 H 06/12/24 09:55 36.8 C 78 18 176/100 H 06/12/24 09:07 84 18 186/98 H 06/12/24 07:01 75 06/12/24 06:59 36.7 C 77 18 192/97 H 06/12/24 06:57 06/12/24 06:00 69 16 128/74 06/12/24 05:30 67 16 162/98 H 06/12/24 05:00 80 16 165/85 H 06/12/24 05:00 36.9 C 06/12/24 04:00 68 16 162/78 H 06/12/24 03:30 66 20 146/108 H 06/12/24 03:00 72 18 189/97 H 06/12/24 02:01 80 20 172/95 H 06/12/24 01:30 83 20 176/91 H 06/12/24 01:05 76 172/90 H 06/12/24 01:04 77 06/12/24 00:55 77 18 158/74 H 06/12/24 00:53 77 176/88 H 06/12/24 00:45 88 18 183/82 H 06/12/24 00:38 86 198/94 H 06/12/24 00:37 89 18 212/110 H 06/12/24 00:10 86 18 197/100 H 06/12/24 00:05 81 16 207/95 H 06/11/24 23:56 85 16 198/86 H 06/11/24 23:50 90 18 203/85 H 06/11/24 23:43 89 18 201/88 H 06/11/24 23:00 198/95 H 06/11/24 22:51 90 18 06/11/24 22:35 199/109 H 06/11/24 22:30 89 25 H 06/11/24 22:00 79 12 06/11/24 21:51 76 15 06/11/24 21:24 82 29 H 06/11/24 21:15 79 17 06/11/24 21:11 06/11/24 21:11 06/11/24 21:10 81 20 208/103 H 06/11/24 21:09 86 06/11/24 21:06 83 17 06/11/24 21:05 218/101 H 06/11/24 21:05 85 18 218/101 H 06/11/24 17:33 36.6 C 84 18 216/93 H Pulse Ox Pulse Ox O2 Del Method O2 Del Method 06/12/24 12:30 93 Room Air 06/12/24 12:15 94 Room Air 06/12/24 12:00 94 Room Air 06/12/24 11:45 95 Room Air 06/12/24 11:35 95 Room Air 06/12/24 11:25 95 Room Air 06/12/24 11:15 94 Room Air 06/12/24 11:08 95 Room Air 06/12/24 09:55 96 Room Air 06/12/24 09:07 96 06/12/24 07:01 06/12/24 06:59 97 Room Air 06/12/24 06:57 97 Room Air 06/12/24 06:00 93 Room Air 06/12/24 05:30 95 Room Air 06/12/24 05:00 96 Room Air 06/12/24 05:00 06/12/24 04:00 93 Room Air 06/12/24 03:30 93 Room Air 06/12/24 03:00 95 Room Air 06/12/24 02:01 95 Room Air 06/12/24 01:30 96 Room Air 06/12/24 01:05 96 Room Air 06/12/24 01:04 06/12/24 00:55 96 Room Air 06/12/24 00:53 06/12/24 00:45 97 Room Air 06/12/24 00:38 06/12/24 00:37 97 Room Air 06/12/24 00:10 97 Room Air 06/12/24 00:05 98 Room Air 06/11/24 23:56 97 Room Air 06/11/24 23:50 97 Room Air 06/11/24 23:43 98 Room Air 06/11/24 23:00 06/11/24 22:51 98 06/11/24 22:35 06/11/24 22:30 06/11/24 22:00 98 06/11/24 21:51 97 06/11/24 21:24 98 06/11/24 21:15 95 06/11/24 21:11 98 Room Air 06/11/24 21:11 98 Room Air 06/11/24 21:10 97 Room Air 06/11/24 21:09 06/11/24 21:06 99 06/11/24 21:05 06/11/24 21:05 98 06/11/24 17:33 96 Transfer of Care Handoff Completed per policy Notes Mental Status: alert / awake / arousable Patient Amnestic to Procedure: Yes Nausea / Vomiting: adequately controlled Pain: adequately controlled Airway Patency, RR, SpO2: stable & adequate BP & HR: stable & adequate Hydration State: stable & adequate Anesthetic Complications: no major complications apparent
--- NOTE | 2024-06-12 14:00 | History & Physical Bridge Note ---
Date of Service June 12, 2024 History & Physical Bridge Note I have examined the patient, reviewed the History & Physical and in the interval since the performance of the History & Physical I have noted the following changes of clinical significance: Pt seen in PACU after having left ureteral stent placed for left hydrouretero nephrosis. She denies pain. Denies SOB, CP. She is concerned she has recurrence of her endometrial cancer Vitals reviewed RRR, no mgr CTAB no wcr Abd soft NT ND +BS Ext left leg 1+ pitting edema lower leg Skin no rashes CBC, CMP, troponin, UA, reviewed Venous Doppler LLE rreviewed 73 yo female with a h/o endometrial CA, here with LLE swelling and found to have left pelvic mass encasing ext iliac artery/vein possibly invading into left ureter with associated left hydronephrosis, UTI. With possible left ext iliac DVT. Pelvic mass with left hydronephrosis, UTI--> appreciate Urology management with left ureteral stent Continue ceftriaxone and f/u urine cx f/u with Urology after discharge for stent management Discussed with SOLE STITCHER HAND here who recommends we reach out to her SO[employer] ST[employer]ER HAND-Onc' surgeon Dr. Devan Fernandez to see about next steps given h/o endometrial CA--> Nurse Navigator faxing records and scans and getting in touch with his nursing staff to help arrange expedited eval as outpt Acute pelvic DVT-likely due to compression of vessel from pelvic mass. LLE DOppler negative On heparin gtt for now--> f/u anti XA levels and follow protocol Recommend either Eliquis vs Lovenox on discharge 3-6 months or indefinitey until determination if pelvic mass is a cancer Follow CBC, BMP, monitor for bleeding Dispo-possible dc to home in 1-2 days
--- NOTE | 2024-06-12 15:01 | Fluoroscopy Report ---
FL retrograde includes kub CLINICAL HISTORY: LEFT STENT PLACEMENT TECHNIQUE: 3 views were obtained with the C-arm in the OR with the above procedure. Total fluoroscopy time was 12.9 seconds. Radiation dose was 3.37 mGy. Comparison: Comparison is made to CT abdomen pelvis 06/11/2024 FINDINGS/IMPRESSION: Intraoperative images were obtained of of left retrograde pyelogram and stent pl acement. In the final images, the stent is in satisfactory position. Please correlate with intraoperative fluoroscopy and operative report. ACT 112: Negative or not required by law. Electronically signed by: Luis Medellin M.D. 06/12/2024 3:00 PM
[2024-06-12] MEDS: DIATRIZOATE MEGLUMINE 30% 100ML VIAL INSTIL ONE (15:13)
[2024-06-12] MEDS: ATORVASTATIN 20 MG TAB PO SCH (15:13)
[2024-06-12 17:09] LABS: ANTI-Xa, UFH(UnfractionatedHep 0.74 IU/ml (0.3-0.7)
[2024-06-12 23:56] LABS: ANTI-Xa, UFH(UnfractionatedHep 0.81 IU/ml (0.3-0.7)
[2024-06-13 07:33] LABS: Basophils # (auto) 0.06 K/uL (0.00-0.20); Basophils % (auto) 1.1 %; Eosinophils # (auto) 0.15 K/uL (0.00-0.50); Eosinophils % (auto) 2.8 %; Hematocrit (blood only) 37.6 % (37.0-47.0); Hemoglobin 12.8 g/dl (12.0-16.0); Immature Granulocytes # (auto) 0.01 K/uL (0.01-0.20); Immature Granulocytes % (auto) 0.2 %; Lymphocytes # (auto) 1.86 K/uL (1.20-3.40); Lymphocytes % (auto) 34.5 %; Mean Corpuscular Hemoglobin 31.2 pg (25.0-34.0); Mean Corpuscular Volume 91.7 fL (80.0-100.0); Mean Platelet Volume 10.4 fL (9.4-12.4); Monocytes % (auto) 11.1 %; Neutrophils # (auto) 2.71 K/uL (1.40-6.50); Neutrophils % (auto) 50.3 %; Platelet Count 163 K/uL (130-400); RDW Coefficient of Variation 12.8 % (11.5-14.5); RDW Standard Deviation 42.4 fL (36.4-46.3); White Blood Count 5.39 K/ul (4.8-10.8)
[2024-06-13 07:52] LABS: Albumin Globulin Ratio 1.4 (0.9-2); Albumin Level 3.7 gm/dl (3.4-5.0); Bilirubin,Total 0.4 mg/dl (0.2-1.0); Creatinine Clr Calc Pharmacy 38.8 ml/min; Globulin 2.7 gm/dl (2.5-4.0); Potassium 3.9 mmol/L (3.5-5.1); Total Protein 6.4 gm/dl (6.0-8.3)
--- NOTE | 2024-06-13 07:57 | Hospitalist Progress Note ---
Date of Service June 13, 2024 Assessment & Plan (1) UTI (urinary tract infection) due to Enterococcus: (2) Hydronephrosis: (3) Endometrial cancer: (4) Pelvic mass: Plan 73 yo female with PMHx of HLD, h/o endometrial CA, here with LLE swelling and found to have left pelvic mass encasing ext iliac artery/vein possibly invading into left ureter with associated left hydronephrosis, UTI. With possible left ext iliac DVT. #Left hydronephrosis in the setting of left pelvic mass #UTI - CT A/P: 3 x 4 x 6cm soft tissue mass in the left pelvis at the level of sacroiliac joint and moderate left-sided hydroureteronephrosis - appreciate Urology management with left ureteral stent (06/12/24) - cont ceftriaxone and f/u urine cx - f/u with Urology after discharge for stent management #h/o Endometrial adenocarcinoma, endometrioid type, grade 1 (02/2020) #Left pelvic mass encasing external iliac artery / vein - pt is s/p robotic assisted laparoscopic hysterectomy and b/l salpingo- ooporectomy, endometrioid adenocarcinoma, FIGO grade 2, stage [id number], Stage IB (02/2020), s/p radiation therapy (05/2020) - Grill Attendant recs to reach out to pt's sound person-onc surgeon Dr. Devan Lemon about next steps given h/o endometrial ca --> nurse Navigator faxing records and scans and getting in touch with his nursing staff to help arrange expedited eval as outpt #Mild ERIK - in the setting of hydronephrosis and stent placement - trend at this time #Acute pelvic DVT - likely due to compression of vessel from pelvic mass. LLE Doppler negative - on heparin gtt for now--> f/u anti XA levels and follow protocol - Recommend either Eliquis vs Lovenox on discharge 3-6 months or indefinitey until determination if pelvic mass is a cancer - Follow CBC, BMP, monitor for bleeding #HTN - SBP > 200s on arrival, treated with labetalol and hydralazine while in the ED - not on any home meds - currently on prn IV hydralazine prn #HLD - cont statin Dispo-possible dc to home in 1-2 days Admission and Anticipated Discharge Date Admission Date: June 12, 2024 Subjective No acute events overnight Currently no new complaints Review of Systems Review of Systems: Comprehensive ROS neg Physical Exam Physical Exam: Gen: NAD HEENT: NC/AT, MMM CVS: s1s2 nl, RRR Lungs: CTAB Abd: soft, NT, nl bowel sounds Ext: LLE edema, RLE w/o swelling Results & Data Results & Data Vital Signs (Past 12 Hours) Vital Signs Temp Pulse Pulse Resp BP Pulse Ox O2 Del Method 06/13/24 07:00 67 06/13/24 03:15 36.7 C 83 16 155/82 H 95 Room Air 06/12/24 22:21 79 06/12/24 22:16 36.5 C 77 18 177/79 H 95 Room Air PG Care Time/CCT Total # of Minutes Spent Total Time Spent with Patient: Total time spent is greater than 50% in coordination of care (as documented) at patient's floor/unit and/or counseling patient: Coding Level of Care Code 87307 SUB INP/OBS CARE 3/50MIN Diagnoses UTI (urinary tract infection) due to Enterococcus N39.0; B95.2 Hydronephrosis N13.30 Endometrial cancer C54.1 Pelvic mass R19.00
[2024-06-13 08:09] LABS: ANTI-Xa, UFH(UnfractionatedHep 0.68 IU/ml (0.3-0.7)
[2024-06-13] MEDS: ACETAMINOPHEN 325 MG TAB PO PRN (08:39)
--- NOTE | 2024-06-13 10:15 | Urology Progress Note ---
Date of Service June 13, 2024 Assessment & Plan (1) Hydronephrosis: Plan: Left kidney should be draining appropriately with left ureteral stent in place. Next steps for the stent/ureter will depend on the etiology of her pelvic mass as well as associated plans for surgery VS radiation VS chemotherapy. Follow-up urine culture, narrow antibiotic coverage as data becomes available No plan for additional urologic intervention at this point, we will arrange o utpatient follow-up for further management. Urology will sign off, please call with any questions or concerns. (2) Endometrial cancer: Admission and Anticipated Discharge Date Admission Date: June 12, 2024 Subjective Feeling well this morning Tolerating her left ureteral stent without significant pain. Had a little bit of hematuria but this seems to be resolving. Urine culture is pending: Remains on broad-spectrum antibiotics with ceftriaxone Physical Exam Physical Exam: Well-appearing, NAD Results & Data Vital Signs (Past 12 Hours) Vital Signs Temp Pulse Pulse Resp BP Pulse Ox O2 Del Method 06/13/24 08:08 36.6 C 71 20 170/78 H 98 Room Air 06/13/24 07:00 67 06/13/24 03:15 36.7 C 83 16 155/82 H 95 Room Air 06/12/24 22:21 79 06/12/24 22:16 36.5 C 77 18 177/79 H 95 Room Air PG Care Time/CCT Total # of Minutes Spent Total Time Spent with Patient: Total time spent is greater than 50% in coordination of care (as documented) at patient's floor/unit and/or counseling patient: Coding Level of Care Code 92364 SUB INP/OBS CARE 07/07MIN Diagnoses Hydronephrosis N13.30 Endometrial cancer C54.1
[2024-06-14] MEDS: hydrALAZINE HCL 20 MG/ML VIAL IV PRN (00:17)
--- NOTE | 2024-06-14 01:15 | Billing Data ---
Date of Service June 14, 2024 Coding Level of Care Code 88144 INT INP/OBS CARE
[2024-06-14 06:38] LABS: Basophils # (auto) 0.04 K/uL (0.00-0.20); Basophils % (auto) 0.8 %; Eosinophils # (auto) 0.12 K/uL (0.00-0.50); Eosinophils % (auto) 2.5 %; Hematocrit (blood only) 39.1 % (37.0-47.0); Hemoglobin 13.6 g/dl (12.0-16.0); Immature Granulocytes # (auto) 0.01 K/uL (0.01-0.20); Immature Granulocytes % (auto) 0.2 %; Lymphocytes # (auto) 1.51 K/uL (1.20-3.40); Lymphocytes % (auto) 31.5 %; Mean Corpuscular Hemoglobin 31.6 pg (25.0-34.0); Mean Corpuscular Hgb Conc 34.8 g/dL (32.0-36.0); Mean Corpuscular Volume 90.9 fL (80.0-100.0); Mean Platelet Volume 10.2 fL (9.4-12.4); Monocytes # (auto) 0.49 K/uL (0.11-0.59); Monocytes % (auto) 10.2 %; Neutrophils # (auto) 2.63 K/uL (1.40-6.50); Neutrophils % (auto) 54.8 %; Platelet Count 172 K/uL (130-400); RDW Coefficient of Variation 12.6 % (11.5-14.5); RDW Standard Deviation 41.3 fL (36.4-46.3)
[2024-06-14 07:09] LABS: Albumin Globulin Ratio 1.4 (0.9-2); Albumin Level 4.1 gm/dl (3.4-5.0); BUN Creatinine Ratio 20.2 (10-20); Bilirubin,Total 0.4 mg/dl (0.2-1.0); Calcium 9.5 mg/dl (8.6-10.3); Creatinine Clr Calc Pharmacy 48.8 ml/min; Potassium 3.7 mmol/L (3.5-5.1); Total Protein 7.1 gm/dl (6.0-8.3)
[2024-06-14 07:10] LABS: ANTI-Xa, UFH(UnfractionatedHep 0.68 IU/ml (0.3-0.7)
--- NOTE | 2024-06-14 08:15 | Hospitalist Progress Note ---
Date of Service June 14, 2024 Assessment & Plan (1) Hydronephrosis: (2) History of endometrial cancer: Admission and Anticipated Discharge Date Admission Date: June 12, 2024 Subjective No acute events overnight Currently no new complaints Review of Systems Review of Systems: Comprehensive ROS neg Physical Exam Physical Exam: Gen: NAD HEENT: NC/AT, MMM CVS: s1s2 nl, RRR Lungs: CTAB Abd: soft, NT, nl bowel sounds Ext: LLE edema, RLE w/o swelling Results & Data Results & Data Vital Signs (Past 12 Hours) Vital Signs Temp Pulse Pulse Resp BP Pulse Ox O2 Del Method 06/14/24 07:39 36.7 C 72 12 165/80 H 95 Room Air 06/14/24 02:52 36.6 C 83 18 176/72 H 97 Room Air 06/13/24 22:55 36.6 C 77 18 198/75 H 95 Room Air 06/13/24 22:38 Room Air 06/13/24 21:55 74 PG Care Time/CCT Total # of Minutes Spent Total Time Spent with Patient: Total time spent is greater than 50% in coordination of care (as documented) at patient's floor/unit and/or counseling patient: Coding Diagnoses Hydronephrosis N13.30 History of endometrial cancer Z85.42
[2024-06-14] MEDS: lisinopril 5 MG TAB PO SCH (08:37)
[2024-06-14 11:38] VITALS: RESP 16; TEMP 97.9; O2SAT 97
--- NOTE | 2024-06-14 13:46 | Discharge Summary ---
Discharge Summary Date of Service June 14, 2024 Principal Dx & Hospital Course #1 = Principal Diagnosis (1) Hydronephrosis: (2) History of endometrial cancer: Plan 73 yo female with PMHx of HLD, h/o endometrial CA, here with LLE swelling and found to have left pelvic mass encasing ext iliac artery/vein possibly invading into left ureter with associated left hydronephrosis, UTI. With possible left ext iliac DVT. #Left hydronephrosis in the setting of left pelvic mass #UTI - CT A/P: 3 x 4 x 6cm soft tissue mass in the left pelvis at the level of sacroiliac joint and moderate left-sided hydroureteronephrosis - appreciate Urology management with left ureteral stent (06/12/24) - urine culture growing pansens E coli, s/p 3 days of ceftriaxone, will d/c on keflex to complete 5 day course - f/u with Urology after discharge for stent management #h/o Endometrial adenocarcinoma, endometrioid type, grade 1 (02/2020) #Left pelvic mass encasing external iliac artery / vein - pt is s/p robotic assisted laparoscopic hysterectomy and b/l salpingo- ooporectomy, endometrioid adenocarcinoma, FIGO grade 2, stage [id number], Stage IB (02/2020), s/p radiation therapy (05/2020) - Service [employer] Foreman recs to reach out to pt's gear inspector-onc surgeon Dr. Devan Lemon about next steps given h/o endometrial ca --> nurse Navigator faxing records and scans and getting in touch with his nursing staff to help arrange expedited eval as outpt #Mild ERIK - resolved - in the setting of hydronephrosis and stent placement #Acute pelvic DVT - likely due to compression of vessel from pelvic mass. LLE Doppler negative - hep gtt while in the hospital - d/c on Eliquis x1 month (free med card given to pt by CM), pt will follow up with PCP for further management (likely switch to coumadin due to high copay for eliquis) #HTN - SBP > 200s on arrival, treated with labetalol and hydralazine while in the ED - not on any home meds - currently on prn IV hydralazine prn - given improvement in renal function, will start lisinopril #HLD - cont statin 1/2: pt's sister at bedside Admission HPI Per Admitting Provider Gabi Geller is a 73 year-old female with medical history significant for degenerative disc disease, HLD, and history of endometrial cancer (s/p hysterectomy) who presented to the ED due to lower extremity swelling. Patient was initially seen at urgent care on 06/11 due to left lower leg swelling since . She is accompanied by her son in the exam room. Denies chest pain or shortness of breath. Has degenerative disc disease, has had some increased back pain recently but attributed this to more activity around the holidays. Patient notes a headache while in the ED which has since resolved. Patient states she is very worried that the finding from CT of her abdomen is a return of her cancer, states she has followed with the gear inspector/onc surgeon and radiation oncology locally for several years. Patient states she has not had much to eat or drink today, denies changes in bowel habits. No change in color of urine or dysuria, does feel like she has to urinate more often. ED Course: -L LE venous duplex -CT A/P, chest x-ray -CBC, CMP, UA Discharge Exam Gen: NAD HEENT: NC/AT, MMM CVS: s1s2 nl, RRR Lungs: CTAB Abd: soft, NT, nl bowel sounds Ext: LLE edema, RLE w/o swelling Discharge Plan Discharge Items Patient Disposition: Home - Self-Care Reason For Visit: HYDRONEPHROSIS Discharge Diagnosis: Pelvic mass Hydronephrosis DVT Activity: Resume your previous activity Non-emergency contact: Primary Care Provider Call non-emergency contact if: you have any medication questions and your symptoms worsen Follow-up/Referrals: Tristen Disla CRNP [Primary Care Provider] - 06/25/24 10:20 am Diet: Heart Healthy Addtl Attending Provider Instructions: 1. Please follow up with your oncologist 2. Please follow up with your primary care in 7 days 3. Please note that you are being sent home on Eliquis x1 month. You will need to be on blood thinners for extended period of time. So please discuss with your primary care regarding switching you to Coumadin. You should be able to bridge as the Eliquis is finishing. 4. Please take your antibiotics to completion. Your first dose will be on 06/15/2024 5. Please note that you are started on new blood pressure medication. Please monitor your blood pressure daily at home. 6. Please follow up with Urologist Dr. Abhinav Alicea as outpatient. Pending Studies at Discharge: No Stand-Alone Forms: My [facility], Smoking Cessation Medications and DC Order Prescriptions: New Eliquis 5 mg tablet See Rx Instructions .ROUTE .COMPLEX Qty: 74 0RF Rx Instructions: Take 10mg (2 tablets) twice a day for 7 days followed by 5mg (1 tablet) twice a day. lisinopril [Zestril] 5 mg Tablet 5 mg PO QAM Qty: 30 0RF cephalexin 500 mg capsule 500 mg PO BID 2 Days Qty: 4 0RF Rx Instructions: Start date is 06/15/24. Continued cholecalciferol (vitamin D3) 25 mcg (1,000 unit) capsule 25 mcg PO QPM multivitamin Tablet 1 tab PO QPM baclofen 5 mg tablet 5 mg PO BID PRN (Reason: muscle spasm) Qty: 60 2RF vitamin A-vitamin C-vit E-min Tablet 1 tab PO QAM atorvastatin 20 mg tablet 20 mg PO DAILY Rx Instructions: take 1 tablet by mouth daily Discharge Orders: Discharge Order (Routine); Ordered 06/14/24 Ordered By: Laure Michelle Admission Data Admit Date/Time: 06/12/24 02:16 Attending Provider: Laure Michelle Admit Provider: Smiley Rice Primary Care Provider: Tristen Disla Other Providers: Gabriel Aponte; Carlos Reed Hospital Stay Data Consultations 06/12/24 01:24 ED Decision to Admit Stat 06/12/24 02:55 Consult Urology Routine Procedures Performed Operation Date: 06/12/24 09:20 Actual Procedures p Cystoscopy, Left Stent Placement(Not Applicable) - Abhinav Alicea MD Diagnostic Imagining Performed 06/11/24 19:12 US venous duplex leg [US venous doppler LE LT] Stat 06/11/24 22:25 CT abd pelvis IV con only Stat 06/12/24 FL retrograde includes kub Routine Pending Results Patient Have Any Pending Studies at Discharge: No Discharge Instructions Given to Patient (Per Discharging Provider) 1. Please follow up with your oncologist 2. Please follow up with your primary care in 7 days 3. Please note that you are being sent home on Eliquis x1 month. You will need to be on blood thinners for extended period of time. So please discuss with your primary care regarding switching you to Coumadin. You should be able to bridge as the Eliquis is finishing. 4. Please take your antibiotics to completion. Your first dose will be on 06/15/2024 5. Please note that you are started on new blood pressure medication. Please monitor your blood pressure daily at home. 6. Please follow up with Urologist Dr. Abhinav Alicea as outpatient. Total Time Total Time Spent Total Time Spent (In Minutes): 50 Coding Level of Care Code 70773 INP/OBS DISCH >30 MIN Diagnoses Hydronephrosis N13.30 History of endometrial cancer Z85.42
[2024-06-14 14:23] VITALS: BP 162/83; PULSE 71
== END 2024-06-14 15:36 | disposition home or self-care (01) | DRG 660 ==
LOC: ED 17:32 → EDINP 06-12 02:16 → SUATTDRO 06-12 02:16 → EDINP 06-12 10:20 → PACUINP 06-12 12:26 → 2N 06-12 14:40

== ENCOUNTER 2024-06-25 15:42 | Inpatient (IN) ==
[2024-06-25 17:13] LABS: Basophils # (auto) 0.08 K/uL (0.00-0.20); Basophils % (auto) 0.8 %; Eosinophils # (auto) 0.12 K/uL (0.00-0.50); Eosinophils % (auto) 1.3 %; Hematocrit (blood only) 38.7 % (37.0-47.0); Hemoglobin 13.3 g/dl (12.0-16.0); Immature Granulocytes # (auto) 0.03 K/uL (0.01-0.20); Immature Granulocytes % (auto) 0.3 %; Lymphocytes # (auto) 1.92 K/uL (1.20-3.40); Lymphocytes % (auto) 20.3 %; Mean Corpuscular Hemoglobin 31.3 pg (25.0-34.0); Mean Corpuscular Hgb Conc 34.4 g/dL (32.0-36.0); Mean Corpuscular Volume 91.1 fL (80.0-100.0); Mean Platelet Volume 10.2 fL (9.4-12.4); Monocytes # (auto) 0.89 K/uL (0.11-0.59); Monocytes % (auto) 9.4 %; Neutrophils # (auto) 6.42 K/uL (1.40-6.50); Neutrophils % (auto) 67.9 %; Platelet Count 279 K/uL (130-400); RDW Coefficient of Variation 12.4 % (11.5-14.5); RDW Standard Deviation 41.1 fL (36.4-46.3); Red Blood Count 4.25 M/uL (4.20-5.40); White Blood Count 9.46 K/ul (4.8-10.8)
[2024-06-25 17:26] LABS: Albumin Globulin Ratio 1.5 (0.9-2); Albumin Level 4.4 gm/dl (3.4-5.0); BUN Creatinine Ratio 12.8 (10-20); Bilirubin,Total 0.8 mg/dl (0.2-1.0); Calcium 9.9 mg/dl (8.6-10.3); Creatinine Clr Calc Pharmacy 55.9 ml/min; Potassium 3.9 mmol/L (3.5-5.1); Total Protein 7.4 gm/dl (6.0-8.3)
[2024-06-25 17:51] LABS: INR 1.1 (0.9-1.1); Prothrombin Time 11.4 Seconds (9.0-12.0)
[2024-06-25] MEDS ORDERED: HEPARIN SOD (PORCINE) 1000 UNIT/ML IV ONE (18:45)
[2024-06-25] MEDS: HEPARIN SODIUM/DEXTROSE 25,000 UNITS/500 ML BAG IV SCH (18:57)
[2024-06-25] MEDS: HEPARIN SOD (PORCINE) 1000 UNIT/ML IV ONE (18:57)
[2024-06-25 19:02] LABS: Partial Thromboplastin Time 27 Seconds (21-31)
[2024-06-25] MEDS: Heparin IV Adult Wt-Based Standard w/ INITIAL Bolus Protocol IV STA (19:06)
--- NOTE | 2024-06-25 20:26 | History & Physical Report ---
Date of Service June 25, 2024 Assessment & Plan (1) Acute deep vein thrombosis (DVT) of femoral vein of left lower extremity: (2) Pelvic mass: (3) Hydronephrosis: (4) Endometrial cancer: Plan The patient is a 73-year-old female with a past medical history including UTI with hydronephrosis, degenerative disease, impaired glucose metabolism, endometrial cancer, tickborne disease, and recent partially occlusive DVT associated with left pelvic mass. She presents to the emergency department as a referral from the outpatient office with worsening left lower extremity edema over the past 24 hours, associated with stoppage of Eliquis that she had been on in anticipation of biopsy of left pelvic mass on 06/26/2024. #Acute DVT of left common femoral/superficial femoral/and left greater saphenous vein- Patient had been on Eliquis, which had to be held due to biopsy tomorrow Continue heparin bolus/drip as begun in the ED Will need to be stopped 3 hours before procedure tomorrow We will ask hematology/oncology for their opinion regarding resumption of anticoagulation after biopsy is completed. The patient would prefer to be to go back on Eliquis for anticoagulation postbiopsy. #Left pelvic mass/history of endometrial cancer- Need to verify that patient will be able to undergo inpatient biopsy in place of the outpatient biopsy scheduled for tomorrow Adjusting heparin as noted above Consult hematology/oncology #Ongoing medical issues: #Hypertension- Hold lisinopril until postprocedure #Hyperlipidemia- Resume atorvastatin postprocedure History of Present Illness Chief Complaint: The patient presents to the emergency department with increasing left lower extremity swelling, and outpatient lower extremity venous Doppler suggestive of new DVT involving common femoral, superficial femoral and greater saphenous vein on the left Primary Care Provider: SEBAS Joiner The patient is a 73-year-old female with a past medical history including UTI with hydronephrosis, degenerative disease, impaired glucose metabolism, endometrial cancer, tickborne disease, and recent partially occlusive DVT associated with left pelvic mass. She presents to the emergency department as a referral from the outpatient office with worsening left lower extremity edema over the past 24 hours, associated with stoppage of Eliquis that she had been on in anticipation of biopsy of left pelvic mass on 06/26/2024. Allergies Allergy/AdvReac Type Severity Reaction Status Date / Time No Known Allergies Allergy Verified 06/18/24 11:07 Home Medications Medication Instructions Recorded Confirmed Type cholecalciferol (vitamin D3) 25 25 mcg PO QPM 04/16/20 06/25/24 History mcg (1,000 unit) capsule multivitamin 1 tab PO QPM 04/16/20 06/25/24 History baclofen 5 mg tablet 5 mg PO BID PRN muscle spasm #60 05/16/24 06/25/24 Rx tabs atorvastatin 20 mg tablet 20 mg PO QPM 06/11/24 06/25/24 History apixaban 5 mg tablet (Eliquis) See Rx Instructions .Route 06/14/24 06/25/24 Rx .COMPLEX #74 tabs lisinopril 5 mg tablet (Zestril) 5 mg PO QAM #30 tabs 06/14/24 06/25/24 Rx Past Med/Surg History Problem List (Updated 06/25/24 @ 20:46 by Gabriel Aponte MD) Acute deep vein thrombosis (DVT) of femoral vein of left lower extremity Acute deep vein thrombosis (DVT) of iliac vein (Acute) Pelvic mass (Acute) UTI (urinary tract infection) due to Enterococcus Hydronephrosis DDD (degenerative disc disease) Cervical spondylosis Chronic pain Cervical Spine area Hyperlipidemia LDL goal <100 Impaired glucose metabolism Vitamin D insufficiency Endometrial cancer (Chronic 02/14/20) Transaminitis Tick-borne disease Simple goiter Medical History Bulging lumbar disc HLD (hyperlipidemia) Cardiac murmur no representative phlebotomy services; 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 Lemon, planning XRT History of tooth extraction Age 17 - [place] Family History Aunt , Passed age 88 of natural causes Breast cancer, Onset Age: 80 Mother , Passed age 69 of [place] Heart disease Myocardial infarction Hypertension Father , Passed age 89 of natural causes No problems noted. Sister Esophageal cancer, Onset Age: 64 Had treatment, doing well now Sister No problems noted. Sister No problems noted. Son No problems noted. Other No family history of adverse response to anesthesia Denies family history of Ovarian cancer Prostate cancer Lung cancer Colorectal cancer Social History Smoking Status: Former smoker Tobacco Type: Cigarettes Age Started Using Tobacco: 17; Age Quit Using Tobacco: 35; packs per day: 1; Second Hand Exposure: Yes (Father smoked in home ); Do You Dip or Chew Tobacco: No; Hx Alcohol Use: No Hx Substance Use: No Preferred Language: Chinese Communication Ability: Effective Visual Impairment: No Limitations Hearing Ability: Normal Continuous [employer] Miner Required: No Beliefs That Will Affect Care: None marital status: Single Current Living Situation: Alone current occupational status: retired 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 Feels Safe at Home: Yes Childhood Exposure to Second-Hand Smoke: Yes Diet: regular Diet Comment: regular caffeine: Yes (coffee morning) during the past year weight has: remained stable Dental Care, Regularly: Yes Physical Activity Frequency: 3-4 Times per Week Seatbelt Use: always Sunscreen Use: Yes Assistive Devices: None Review of Systems Review of Systems: The patient denies chest pain, palpitations, shortness of breath, dyspnea on exertion, cough, sore throat, fevers, chills, sweats, weight change, fatigue, nausea, vomiting, diarrhea , constipation, abdominal pain, pelvic pain, blood in urine or stool, dysuria, urinary frequency or urgency, lightheadedness, dizziness, headache, memory loss, loss of consciousness, rash, abnormal bruising or bleeding, imbalance, focal or generalized weakness, numbness or tingling in arms,c generalized arthralgias or myalgias, back or neck pain, or night sweats. The review of systems is otherwise negative other than for that already noted above, and at least 10 systems have been reviewed. Physical Exam Physical Exam: The patient is awake, alert and oriented 3, well developed and well nourished, normocephalic and atraumatic, lying in bed and in no acute distress. HEENT--PERRL, EOMI, mucous membranes and oropharynx normal Neck--supple. No JVD. No bruits. Thyroid normal, trachea midline, no adenopathy. Heart--normal S1 and S2. No murmurs, rubs or gallops. Lungs--clear bilaterally, no respiratory distress, no accessory muscle use. Abdomen--normal bowel sounds and soft. Nontender. Nondistended, no hernias or masses, no organomegaly. Extremities--no cyanosis or clubbing. Left lower extremity with +1 pretibial pitting edema. There are good distal pulses b/l. Dermatologic--normal skin turgor, normal color, no abnormal lymph nodes, no rash. Neurologic--cranial nerves II through XII grossly intact. Rheumatologic--normal range of motion. Psychiatric--normal affect. Results & Data Results & Data Vital Signs (Past 12 Hours) Vital Signs Temp Pulse Pulse Resp BP BP Pulse Ox 06/25/24 19:51 91 H 24 06/25/24 19:48 85 23 06/25/24 19:24 89 95 06/25/24 19:12 89 22 97 06/25/24 19:06 84 17 98 06/25/24 19:03 148/71 H 06/25/24 18:54 81 22 97 06/25/24 18:51 82 20 96 06/25/24 18:51 81 06/25/24 18:48 166/71 H 06/25/24 18:31 81 19 168/81 H 98 06/25/24 15:55 36.3 C L 89 20 146/81 H 94 O2 Del Method 06/25/24 19:51 06/25/24 19:48 06/25/24 19:24 Room Air 06/25/24 19:12 Room Air 06/25/24 19:06 Room Air 06/25/24 19:03 06/25/24 18:54 Room Air 06/25/24 18:51 Room Air 06/25/24 18:51 06/25/24 18:48 06/25/24 18:31 Room Air 06/25/24 15:55 Room Air Laboratory Results Laboratory Results WBC 9.46 K/ul (4.8-10.8) 06/25/24 16:52 RBC 4.25 M/uL (4.20-5.40) 06/25/24 16:52 Hgb 13.3 g/dl (12.0-16.0) 06/25/24 16:52 Hct 38.7 % (37.0-47.0) 06/25/24 16:52 MCV 91.1 fL (80.0-100.0) 06/25/24 16:52 MCH 31.3 pg (25.0-34.0) 06/25/24 16:52 MCHC 34.4 g/dL (32.0-36.0) 06/25/24 16:52 RDW Std Deviation 41.1 fL (36.4-46.3) 06/25/24 16:52 RDW Coeff of Nico 12.4 % (11.5-14.5) 06/25/24 16:52 Plt Count 279 K/uL (130-400) 06/25/24 16:52 MPV 10.2 fL (9.4-12.4) 06/25/24 16:52 Immature Gran % (Auto) 0.3 % 06/25/24 16:52 Neut % (Auto) 67.9 % 06/25/24 16:52 Lymph % (Auto) 20.3 % 06/25/24 16:52 [place] % (Auto) 9.4 % 06/25/24 16:52 Eos % (Auto) 1.3 % 06/25/24 16:52 Baso % (Auto) 0.8 % 06/25/24 16:52 Neut # (Auto) 6.42 K/uL (1.40-6.50) 06/25/24 16:52 Lymph # (Auto) 1.92 K/uL (1.20-3.40) 06/25/24 16:52 [place] # (Auto) 0.89 K/uL (0.11-0.59) H 06/25/24 16:52 Eos # (Auto) 0.12 K/uL (0.00-0.50) 06/25/24 16:52 Baso # (Auto) 0.08 K/uL (0.00-0.20) 06/25/24 16:52 Immature Gran # (Auto) 0.03 K/uL (0.01-0.20) 06/25/24 16:52 PT 11.4 Seconds (9.0-12.0) 06/25/24 16:52 INR 1.1 (0.9-1.1) 06/25/24 16:52 APTT 27 Seconds (21-31) 06/25/24 18:48 PTT Ratio 1.0 06/25/24 18:48 Sodium 142 mmol/L (136-145) 06/25/24 16:52 Potassium 3.9 mmol/L (3.5-5.1) 06/25/24 16:52 Chloride 106 mmol/L (98-107) 06/25/24 16:52 Carbon Dioxide 29 mmol/L (21-32) 06/25/24 16:52 Anion Gap 7 (3-11) 06/25/24 16:52 BUN 12 mg/dl (6-23) 06/25/24 16:52 Creatinine 0.94 mg/dl (0.6-1.2) 06/25/24 16:52 Est Cr Clr Drug Dosing 55.9 ml/min 06/25/24 16:52 eGFR 63.67 06/25/24 16:52 BUN/Creatinine Ratio 12.8 (10-20) 06/25/24 16:52 Glucose 99 mg/dl (70-99(Fasting)) 06/25/24 16:52 Calcium 9.9 mg/dl (8.6-10.3) 06/25/24 16:52 Total Bilirubin 0.8 mg/dl (0.2-1.0) 06/25/24 16:52 AST 16 U/L (13-39) 06/25/24 16:52 ALT 24 U/L (7-52) 06/25/24 16:52 Alkaline Phosphatase 85 U/L (34-104) 06/25/24 16:52 Total Protein 7.4 gm/dl (6.0-8.3) 06/25/24 16:52 Albumin 4.4 gm/dl (3.4-5.0) 06/25/24 16:52 Globulin 3.0 gm/dl (2.5-4.0) 06/25/24 16:52 Albumin/Globulin Ratio 1.5 (0.9-2) 06/25/24 16:52 Code Status & VTE Plan Code Status Full code VTE Prophylaxis Plan VTE Prophylaxis will be ordered: Yes PG Care Time/CCT Total # of Minutes Spent Total Time Spent with Patient: Total time spent is greater than 50% in coordination of care (as documented) at patient's floor/unit and/or counseling patient: Coding Level of Care Code 03568 INT INP/OBS CARE 2/55MIN Diagnoses Acute deep vein thrombosis (DVT) of femoral vein of left lower extremity I82.412 Pelvic mass R19.00 Hydronephrosis N13.30 Endometrial cancer C54.1
[2024-06-25] MEDS ORDERED: ONDANSETRON INJ 2 MG/ML 2 ML VIAL IV PRN (22:25)
[2024-06-25] MEDS ORDERED: BACLOFEN 10 MG TAB PO PRN (22:25)
[2024-06-25] MEDS ORDERED: ACETAMINOPHEN 325 MG TAB PO PRN (22:25)
[2024-06-25] MEDS: MULTIVITAMIN TAB PO SCH (23:46)
[2024-06-25] MEDS: CHOLECALCIFEROL 25 MCG (1000 UNITS) TAB PO SCH (23:46)
[2024-06-25] MEDS: ATORVASTATIN 20 MG TAB PO SCH (23:46)
--- NOTE | 2024-06-26 00:49 | Emergency Department Note ---
Impression & Plan Acute deep vein thrombosis (DVT), History of pelvic mass ED Provider Note CHIEF COMPLAINT: Left leg swelling HISTORY OF PRESENT ILLNESS: This patient is a 73-year-old female who presents emergency department with complaints of left leg swelling. 2 weeks ago the patient was diagnosed with a pelvic mass and iliac DVT. She was placed on Eliquis after being hospitalized. Patient states she stopped her Eliquis 2 days ago in anticipation of a biopsy tomorrow. She noticed some increased pain and swelling in the left leg and saw her PCP. An ultrasound was ordered which reveals an acute long segment DVT of the common femoral vein. Patient denies any chest pain or shortness of breath. She denies any fevers and trauma. REVIEW OF SYSTEMS: A review of systems was performed with positives and pertinent negatives listed in the history of present illness. 10 systems were reviewed and are otherwise negative. ALLERGIES: see below MEDICATIONS: see below PMH: see below SOCIAL HISTORY: see below DDx: DVT, cellulitis, hypercoagulable state, mechanical compression among others. PHYSICAL EXAM: Vital signs reviewed. General: Well-appearing 73-year-old female, in no significant distress. HEENT: No scleral icterus, PERRLA, neck supple. Moist mucous membranes Cardiovascular: Regular rate and rhythm, no extra sounds. Pulmonary: Clear to auscultation bilaterally, normal work of breathing. Abdomen: Soft, nontender, nondistended, positive bowel sounds. Musculoskeletal: Atraumatic, minimal left lower extremity swelling Neurologic: Patient awake alert and oriented x 3, speech is clear Skin: Warm, dry, no rash EMERGENCY DEPARTMENT COURSE/MDM: This patient was evaluated and appeared to be in no significant distress. IV access was obtained and laboratory work was drawn. The ultrasound of the left lower extremity rule out DVT performed earlier today was reviewed and is significant for an acute long segment DVT in the left lower leg. MONITORING: An order for cardiac monitoring was placed and the patient is noted to be in a normal sinus rhythm at 81 beats per minute. DISPOSITION: Admission Past Med/Surg History Problem List (Updated 06/26/24 @ 00:55 by Tiff Plata MD) History of pelvic mass (Acute) Acute deep vein thrombosis (DVT) (Acute) Acute deep vein thrombosis (DVT) of femoral vein of left lower extremity Acute deep vein thrombosis (DVT) of iliac vein (Acute) Pelvic mass (Acute) UTI (urinary tract infection) due to Enterococcus Hydronephrosis DDD (degenerative disc disease) Cervical spondylosis Chronic pain Cervical Spine area Hyperlipidemia LDL goal <100 Impaired glucose metabolism Vitamin D insufficiency Endometrial cancer (Chronic 02/14/20) Transaminitis Tick-borne disease Simple goiter Medical History Bulging lumbar disc HLD (hyperlipidemia) Cardiac murmur 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 Lemon, planning XRT History of tooth extraction Age 17 - [place] Teeth Family History Aunt , Passed age 88 of natural causes Breast cancer, Onset Age: 80 Mother , Passed age 69 of [place] Heart disease Myocardial infarction Hypertension Father , Passed age 89 of natural causes No problems noted. Sister Esophageal cancer, Onset Age: 64 Had treatment, doing well now Sister No problems noted. Sister No problems noted. Son No problems noted. Other No family history of adverse response to anesthesia Denies family history of Ovarian cancer Prostate cancer Lung cancer Colorectal cancer Social History Smoking Status: Former smoker Tobacco Type: Cigarettes Age Started Using Tobacco: 17; Age Quit Using Tobacco: 35; packs per day: 1; Second Hand Exposure: Yes (Father smoked in home ); Do You Dip or Chew Tobacco: No; Hx Alcohol Use: No Hx Substance Use: No Preferred Language: Turkmen Communication Ability: Effective Visual Impairment: No Limitations Hearing Ability: Normal Fire Observer Required: No Beliefs That Will Affect Care: None marital status: Single Current Living Situation: Alone current occupational status: retired 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 Feels Safe at Home: Yes Childhood Exposure to Second-Hand Smoke: Yes Diet: regular Diet Comment: regular caffeine: Yes (coffee morning) during the past year weight has: remained stable Dental Care, Regularly: Yes Physical Activity Frequency: 3-4 Times per Week Seatbelt Use: always Sunscreen Use: Yes Assistive Devices: None Allergies Allergies Allergy/AdvReac Type Severity Reaction Status Date / Time No Known Allergies Allergy Verified 06/28/24 14:22 Home Meds Home Medications Medication Instructions Recorded Confirmed cholecalciferol (vitamin D3) 25 25 mcg PO QPM 04/16/20 06/28/24 mcg (1,000 unit) capsule multivitamin 1 tab PO QPM 04/16/20 06/28/24 atorvastatin 20 mg tablet 20 mg PO QPM 06/11/24 06/28/24 Previous Rx's Medication Instructions Recorded baclofen 5 mg tablet 5 mg PO BID PRN muscle spasm #60 05/16/24 tabs lisinopril 5 mg tablet (Zestril) 5 mg PO QAM #30 tabs 06/14/24 acetaminophen 325 mg tablet 650 mg (2 x 325 mg) PO Q4H PRN 06/27/24 pain #30 tabs apixaban 5 mg tablet (Eliquis) See Rx Instructions .Route 06/27/24 .COMPLEX #67 tabs Results & Data (ED) Vital Signs Vital Signs - 24 hr 06/25/24 15:55 06/25/24 18:31 06/25/24 18:48 Temperature 36.3 C L Temperature Source Temporal Artery Scan Pulse Rate 89 Pulse Rate [Right Finger] 81 Respiratory Rate 20 19 Respiratory Effort / Characteristics Non-Labored Spontaneous Non-Labored Spontaneous Respiratory Depth Normal Normal Respiratory Pattern Regular Regular Blood Pressure 146/81 H 166/71 H Blood Pressure [Right Arm] 168/81 H Blood Pressure Mean 102 107 Blood Pressure Mean [Right Arm] 110 Blood Pressure Position [Right Arm] Sitting Pulse Oximetry 94 98 Oxygen Delivery Method Room Air Room Air Sepsis Recent Fever Within 48 Hours No Sepsis New/Unexplained Change in Mental Status No Sepsis Action Taken by Nursing No Action Required 06/25/24 18:51 06/25/24 18:51 06/25/24 18:54 Temperature Temperature Source Pulse Rate 81 82 81 Pulse Rate [Right Finger] Respiratory Rate 20 22 Respiratory Effort / Characteristics Respiratory Depth Respiratory Pattern Blood Pressure Blood Pressure [Right Arm] Blood Pressure Mean Blood Pressure Mean [Right Arm] Blood Pressure Position [Right Arm] Pulse Oximetry 96 97 Oxygen Delivery Method Room Air Room Air Sepsis Recent Fever Within 48 Hours Sepsis New/Unexplained Change in Mental Status Sepsis Action Taken by Nursing 06/25/24 19:03 06/25/24 19:06 06/25/24 19:12 Temperature Temperature Source Pulse Rate 84 89 Pulse Rate [Right Finger] Respiratory Rate 17 22 Respiratory Effort / Characteristics Respiratory Depth Respiratory Pattern Blood Pressure 148/71 H Blood Pressure [Right Arm] Blood Pressure Mean 127 Blood Pressure Mean [Right Arm] Blood Pressure Position [Right Arm] Pulse Oximetry 98 97 Oxygen Delivery Method Room Air Room Air Sepsis Recent Fever Within 48 Hours Sepsis New/Unexplained Change in Mental Status Sepsis Action Taken by Nursing 06/25/24 19:24 06/25/24 19:48 06/25/24 19:51 Temperature Temperature Source Pulse Rate 89 85 91 H Pulse Rate [Right Finger] Respiratory Rate 23 24 Respiratory Effort / Characteristics Respiratory Depth Respiratory Pattern Blood Pressure Blood Pressure [Right Arm] Blood Pressure Mean Blood Pressure Mean [Right Arm] Blood Pressure Position [Right Arm] Pulse Oximetry 95 Oxygen Delivery Method Room Air Sepsis Recent Fever Within 48 Hours Sepsis New/Unexplained Change in Mental Status Sepsis Action Taken by Nursing 06/25/24 20:00 06/25/24 20:12 Temperature Temperature Source Pulse Rate 84 85 Pulse Rate [Right Finger] Respiratory Rate 13 21 Respiratory Effort / Characteristics Respiratory Depth Respiratory Pattern Blood Pressure 175/81 H Blood Pressure [Right Arm] Blood Pressure Mean 112 Blood Pressure Mean [Right Arm] Blood Pressure Position [Right Arm] Pulse Oximetry Oxygen Delivery Method Sepsis Recent Fever Within 48 Hours Sepsis New/Unexplained Change in Mental Status Sepsis Action Taken by [facility] Medications Current Medication List: was personally reviewed by me Laboratory Data Attestation: I reviewed the patient's lab results. 06/27/24 04:04 06/27/24 04:04 Lab Results 06/25/24 06/25/24 Range/Units 16:52 18:48 WBC 9.46 (4.8-10.8) K/ul RBC 4.25 (4.20-5.40) M/uL Hgb 13.3 (12.0-16.0) g/dl Hct 38.7 (37.0-47.0) % MCV 91.1 (80.0-100.0) fL MCH 31.3 (25.0-34.0) pg MCHC 34.4 (32.0-36.0) g/dL RDW Std Deviation 41.1 (36.4-46.3) fL RDW Coeff of Nico 12.4 (11.5-14.5) % Plt Count 279 (130-400) K/uL MPV 10.2 (9.4-12.4) fL Immature Gran % (Auto) 0.3 % Neut % (Auto) 67.9 % Lymph % (Auto) 20.3 % [place] % (Auto) 9.4 % Eos % (Auto) 1.3 % Baso % (Auto) 0.8 % Neut # (Auto) 6.42 (1.40-6.50) K/uL Lymph # (Auto) 1.92 (1.20-3.40) K/uL [place] # (Auto) 0.89 H (0.11-0.59) K/uL Eos # (Auto) 0.12 (0.00-0.50) K/uL Baso # (Auto) 0.08 (0.00-0.20) K/uL Immature Gran # (Auto) 0.03 (0.01-0.20) K/uL PT 11.4 (9.0-12.0) Seconds INR 1.1 (0.9-1.1) APTT 27 (21-31) Seconds PTT Ratio 1.0 Sodium 142 (136-145) mmol/L Potassium 3.9 (3.5-5.1) mmol/L Chloride 106 (98-107) mmol/L Carbon Dioxide 29 (21-32) mmol/L Anion Gap 7 (3-11) BUN 12 (6-23) mg/dl Creatinine 0.94 (0.6-1.2) mg/dl Est Cr Clr Drug Dosing 55.9 ml/min eGFR 63.67 BUN/Creatinine Ratio 12.8 (10-20) Glucose 99 (70-99(Fasting)) mg/dl Calcium 9.9 (8.6-10.3) mg/dl Total Bilirubin 0.8 (0.2-1.0) mg/dl AST 16 (13-39) U/L ALT 24 (7-52) U/L Alkaline Phosphatase 85 (34-104) U/L Total Protein 7.4 (6.0-8.3) gm/dl Albumin 4.4 (3.4-5.0) gm/dl Globulin 3.0 (2.5-4.0) gm/dl Albumin/Globulin Ratio 1.5 (0.9-2) Administered Medications Discontinued Medications Apixaban (Apixaban 5 Mg Tablet) 10 mg PO BID JEANNA Stop: 07/03/24 21:01 Last Admin: 06/27/24 10:51 Dose: 10 mg Documented By: SARABJIT Atorvastatin Calcium (Atorvastatin 20 Mg Tab) 20 mg PO QPM JEANNA Stop: 07/25/24 22:24 Last Admin: 06/26/24 20:19 Dose: 20 mg Documented By: Admin: 06/25/24 23:46 Dose: 20 mg Documented By: YAZ Fentanyl Citrate (Fentanyl Citrate Pf 100 Mcg/2 Ml Vial) Confirm Administered Dose 100 mcg .ROUTE .STK-MED ONE Stop: 06/26/24 10:01 Last Admin: 06/26/24 11:39 Dose: Not Given Documented By: TOYA Heparin Sodium (Porcine) (Heparin Sod (Porcine) 1000 Unit/Ml) 5,000 units IV NOW ONE Stop: 06/25/24 18:46 Last Admin: 06/25/24 18:57 Dose: 5,000 units Documented By: ALEXANDRE Co-signed By: JEAN CARLOS Heparin Sodium/Dextrose (Heparin Iv Adult Wt-Based Standard W/ Initial Bolus Protocol) 1 each IV NOW STA; Protocol Stop: 06/25/24 18:31 Last Admin: 06/25/24 19:06 Dose: Not Given Documented By: JEAN CARLOS Heparin Sodium/Dextrose (Heparin Sodium/Dextrose) 25,000 units in 500 mls @ 19 mls/hr IV .Q24H [facility]; Protocol Stop: 07/25/24 18:44 Last Titration: 06/27/24 10:26 Dose: Infused Documented By: SARABJIT Co-signed By: NICOLLE Titration: 06/27/24 06:57 Dose: 950 units/hr, 19 mls/hr Documented By: SARABJIT Co-signed By: ANNITA Admin: 06/27/24 06:15 Dose: 950 units/hr, 19 mls/hr Documented By: ANNITA Co-signed By: MAGGIE Titration: 06/27/24 06:15 Dose: Infused Documented By: ANNITA Co-signed By: MAGGIE Titration: 06/27/24 04:54 Dose: 950 units/hr, 19 mls/hr Documented By: ANNITA Co-signed By: MANDIE Titration: 06/27/24 00:10 Dose: 950 units/hr, 19 mls/hr Documented By: ANNITA Co-signed By: MANDIE Titration: 06/26/24 18:56 Dose: 950 units/hr, 19 mls/hr Documented By: ANNITA Co-signed By: TOYA Titration: 06/26/24 16:15 Dose: 950 units/hr, 19 mls/hr Documented By: TOYA Co-signed By: KKSuzanne Titration: 06/26/24 08:16 Dose: 0 units/hr, 0 mls/hr Documented By: TOYA Co-signed By: BCCharly Titration: 06/26/24 06:54 Dose: 950 units/hr, 19 mls/hr Documented By: TOYA Co-signed By: [id number] Titration: 06/26/24 02:47 Dose: 950 units/hr, 19 mls/hr Documented By: [id number] Co-signed By: TONY Titration: 06/26/24 01:24 Dose: 0 units/hr, 0 mls/hr Documented By: [id number] Co-signed By: TONY Admin: 06/25/24 18:57 Dose: 1,200 units/hr, 24 mls/hr Documented By: ALEXANDRE Co-signed By: DM Potassium Chloride/Sodium Chloride (Normal Saline W/20 Meq Kcl) 20 meq in 1,000 mls @ 80 mls/hr IV .[id number] JEANNA Stop: 06/26/24 06:14 Last Infusion: 06/26/24 19:31 Dose: Infused Documented By: Infusion: 06/26/24 06:32 Dose: 0 mls/hr Documented By: [id number] Admin: 06/26/24 01:42 Dose: 80 mls/hr Documented By: [id number] Lisinopril (Lisinopril 5 Mg Tab) 5 mg PO QAM JEANNA Stop: 07/27/24 08:59 Last Admin: 06/27/24 07:34 Dose: 5 mg Documented By: LND Multivitamins (Multivitamin Tab) 1 tab PO QPM JEANNA Stop: 07/25/24 22:29 Last Admin: 06/26/24 20:19 Dose: 1 tab Documented By: Admin: 06/25/24 23:46 Dose: Not Given Documented By: YAZ Vitamin D (Cholecalciferol 25 Mcg (1000 Units) Tab) 25 mcg PO QPM JEANNA Stop: 07/25/24 22:24 Last Admin: 06/26/24 20:19 Dose: 25 mcg Documented By: Admin: 06/25/24 23:46 Dose: Not Given Documented By: YAZ Discharge Plan Visit Data Chief Complaint: Leg Injury/Pain Stated Complaint: uls showed blood clots in left leg ED Provider: Tiff Plata Discharge Problem: Acute deep vein thrombosis (DVT), History of pelvic mass Patient Disposition: Admitted As Inpatient Condition: Good Discharge Instructions Interventions: ED Discharge Assessment Last Done: 06/26/24 00:14 Discharge Problem: Acute deep vein thrombosis (DVT) Qualifiers: DVT location: lower extremity Affected thrombotic vein of extremity: femoral L aterality: left Qualified Code(s): I82.412 - Acute embolism and thrombosis of left femoral vein
[2024-06-26 01:23] LABS: ANTI-Xa, UFH(UnfractionatedHep 1.06 IU/ml (0.3-0.7)
[2024-06-26] MEDS: NSS + 20MEQ KCL 20 MEQ/1,000 ML BAG IV SCH (01:42)
[2024-06-26 09:29] LABS: Basophils # (auto) 0.05 K/uL (0.00-0.20); Basophils % (auto) 0.8 %; Eosinophils # (auto) 0.15 K/uL (0.00-0.50); Eosinophils % (auto) 2.5 %; Hematocrit (blood only) 34.4 % (37.0-47.0); Hemoglobin 11.9 g/dl (12.0-16.0); Immature Granulocytes # (auto) 0.02 K/uL (0.01-0.20); Immature Granulocytes % (auto) 0.3 %; Lymphocytes # (auto) 1.42 K/uL (1.20-3.40); Lymphocytes % (auto) 23.8 %; Mean Corpuscular Hemoglobin 30.7 pg (25.0-34.0); Mean Corpuscular Hgb Conc 34.6 g/dL (32.0-36.0); Mean Corpuscular Volume 88.9 fL (80.0-100.0); Mean Platelet Volume 10.3 fL (9.4-12.4); Monocytes # (auto) 0.66 K/uL (0.11-0.59); Monocytes % (auto) 11.1 %; Neutrophils # (auto) 3.67 K/uL (1.40-6.50); Neutrophils % (auto) 61.5 %; Platelet Count 215 K/uL (130-400); RDW Coefficient of Variation 12.6 % (11.5-14.5); RDW Standard Deviation 40.8 fL (36.4-46.3); Red Blood Count 3.87 M/uL (4.20-5.40); White Blood Count 5.97 K/ul (4.8-10.8)
[2024-06-26 09:36] LABS: Albumin Level 3.6 gm/dl (3.4-5.0); BUN Creatinine Ratio 17.3 (10-20); Calcium 9.2 mg/dl (8.6-10.3); Creatinine Clr Calc Pharmacy 70.1 ml/min; Magnesium 1.8 mg/dl (1.7-2.4); Potassium 4.2 mmol/L (3.5-5.1)
--- NOTE | 2024-06-26 09:39 | Oncology Consultation ---
Date of Consultation June 26, 2024 Assessment & Plan (1) History of pelvic mass: Will await the results of the biopsy from the pelvic mass. This may very well be recurrence or entirely different pathology. Once I have the results of the pathology I will let further recommendation from an oncological standpoint. Of note the patient has never been evaluated in our clinic and follows with [facility] at [facility]. Will inform my colleagues from [facility], Dr. Casa Lemon MD of the latest developments. (2) Acute deep vein thrombosis (DVT): Eventually she can be resumed on Eliquis, as she will need anticoagulation on an outpatient basis given the new DVT which was identified. Eliquis can be started tomorrow as that will be postop day 2 and it should be safe to start as Eliquis at that point from a DVT standpoint. Plan thank you for this interesting oncological consult. Medical oncology will continue to follow the patient make appropriate recommendations. History of Present Illness Reason for Consultation: History of endometrial cancer pelvic mass Attending Physician: Olivia Hall MD History of Present Illness patient is a very pleasant 73-year-old woman who is being followed by my colleagues from [facility], has a history of endometrial cancer. The patient underwent robotic assisted laparoscopic hysterectomy, bilateral salpingo-oophorectomy as a part of surgical staging in February 2020. Subsequently she received intracavitary radiation therapy. She did not receive any chemotherapy at that point. she had a CT of the abdomen pelvis performed on 06/11/2024 which revealed 3 x 4 x 6 cm pelvic mass which was biopsied today. Medical oncology has been consulted to assist in management of this patient with history of endometrial cancer, with possible pelvic recurrence. The CT scan from June 11, 2024 also revealed DVT in the left external iliac vein. Allergies Allergy/AdvReac Type Severity Reaction Status Date / Time No Known Allergies Allergy Verified 06/18/24 11:07 Home Medications Medication Instructions Recorded Confirmed Type cholecalciferol (vitamin D3) 25 25 mcg PO QPM 04/16/20 06/25/24 History mcg (1,000 unit) capsule multivitamin 1 tab PO QPM 04/16/20 06/25/24 History baclofen 5 mg tablet 5 mg PO BID PRN muscle spasm #60 05/16/24 06/25/24 Rx tabs atorvastatin 20 mg tablet 20 mg PO QPM 06/11/24 06/25/24 History apixaban 5 mg tablet (Eliquis) See Rx Instructions .Route 06/14/24 06/25/24 Rx .COMPLEX #74 tabs lisinopril 5 mg tablet (Zestril) 5 mg PO QAM #30 tabs 06/14/24 06/25/24 Rx Patient History Medical History Bulging lumbar disc HLD (hyperlipidemia) 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 Lemon, planning XRT History of tooth extraction Age 17 - [place] Family History Aunt , Passed age 88 of natural causes Breast cancer, Onset Age: 80 Mother , Passed age 69 of [place] Heart disease Myocardial infarction Hypertension Father , Passed age 89 of natural causes No problems noted. Sister Esophageal cancer, Onset Age: 64 Had treatment, doing well now Sister No problems noted. Sister No problems noted. Son No problems noted. 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 Beliefs That Will Affect Care: None marital status: Single Current Living Situation: Alone current occupational status: retired 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 Feels Safe at Home: Yes Childhood Exposure to Second-Hand Smoke: Yes Diet: regular Diet Comment: regular caffeine: Yes (coffee morning) during the past year weight has: remained stable Dental Care, Regularly: Yes Physical Activity Frequency: 3-4 Times per Week Seatbelt Use: always Sunscreen Use: Yes Assistive Devices: None Review of Systems Review of Systems: All systems reviewed & are unremarkable except as noted in HPI & below Constitutional: as per Subjective / HPI Eyes: as per Subjective / HPI Ear, Nose, Mouth, Throat: as per Subjective / HPI Respiratory: as per Subjective / HPI Cardiovascular: as per Subjective / HPI Gastrointestinal: as per Subjective / HPI Genitourinary: as per Subjective / HPI Musculoskeletal: as per Subjective / HPI Integumentary: as per Subjective / HPI Neurologic: as per Subjective / HPI Psychiatric: as per Subjective / HPI Physical Exam Constitutional: WD/WN, vitals as above Eyes: PERRL, conjunctivae normal, anicteric sclerae ENMT: external ear and nose normal, oropharynx normal Neck: trachea midline, no thyromegaly Respiratory: normal respiratory effort, lungs clear to auscultation Cardiovascular: RRR, no murmur, no edema Gastrointestinal (Abdomen): normal bowel sounds, soft, nontender, no hepatosplenomegaly Musculoskeletal: no cyanosis or clubbing, extremities motor strength 5/5 Skin: no rashes, warm and dry Neurologic: patellar DTR's 2+ bilat, sensation intact Psychiatric: A+Ox3, euthymic affect Results & Data Vital Signs (Past 12 Hours) Vital Signs Temp Pulse Pulse Resp BP BP Pulse Ox 06/26/24 07:47 36.7 C 73 18 148/72 H 98 06/26/24 07:18 73 06/26/24 03:36 36.4 C L 64 18 121/63 97 06/26/24 00:48 36.7 C 83 18 95 06/26/24 00:46 84 06/26/24 00:14 06/26/24 00:00 75 15 154/82 H 98 06/25/24 23:30 157/75 H 06/25/24 23:00 142/72 H 06/25/24 22:12 37 C 81 22 159/75 H 95 O2 Del Method 06/26/24 07:47 Room Air 06/26/24 07:18 06/26/24 03:36 Room Air 06/26/24 00:48 Room Air 06/26/24 00:46 06/26/24 00:14 Room Air 06/26/24 00:00 Room Air 06/25/24 23:30 06/25/24 23:00 06/25/24 22:12 Room Air (2) Acute deep vein thrombosis (DVT) Affected thrombotic vein of extremity: femoral DVT location: lower extremity Laterality: left Qualified Code(s): I82.412 - Acute embolism and thrombosis of left femoral vein
[2024-06-26 09:50] LABS: INR 1.1 (0.9-1.1); Partial Thromboplastin Ratio 1.6; Partial Thromboplastin Time 42 Seconds (21-31); Prothrombin Time 11.4 Seconds (9.0-12.0)
[2024-06-26] MEDS: fentaNYL citrate PF 100 MCG/2 ML VIAL ONE (11:39)
--- NOTE | 2024-06-26 14:04 | CT Scan Report ---
CT-guided left pelvic soft tissue mass core biopsy INDICATION: 3.7 cm left pelvic soft tissue mass encasing the iliac vessels; history of uterine carcin petra PROCEDURE: Procedure and risks were applied. Informed consent was obtained. A final timeout was compl eted. The patient was placed in a right posterior oblique position on the CT exam table. The left low er quadrant was prepped and draped in sterile fashion. 1% lidocaine was utilized for skin anesthesia. Utilizing CT guidance, a 17-gauge coaxial needle was advanced down to the level of the left pelvic so ft tissue mass. The patient then received 60 mL of Optiray 320 IV to determine soft tissue mass versu s encased vasculature. An 18-gauge core biopsy needle was then advanced through the coaxial needle, a nd two 1 cm cores were obtained and given to the pathologist. The needle was then removed and Band- d applied. The patient tolerated the procedure well. Post CT imaging demonstrated no immediate bleed/ complication. Vital signs will be monitored on the floor postprocedure. IMPRESSION: Left pelvic soft tissue mass core biopsy as above. Performed, dictated, and signed by Tristen Reed PA-C; to be co-signed by Dr. Miguel Angel De La Rosa. Electronically signed by: Miguel Angel De La Rosa M.D. 06/26/2024 2:47 PM
--- NOTE | 2024-06-26 17:38 | Hospitalist Progress Note ---
Date of Service June 26, 2024 Assessment & Plan (1) Acute deep vein thrombosis (DVT) of femoral vein of left lower extremity: (2) Pelvic mass: (3) Hydronephrosis: (4) Endometrial cancer: Plan The patient is a 73-year-old female with a past medical history including UTI with hydronephrosis, impaired glucose tolerance, endometrial cancer, and recent partially occlusive pelvic DVT associated with left pelvic mass causing left hydronephrosis w/ ureteral stent placement. She presents as a referral from PCP w/ worsening LLE edema x 24 hours, associated with holding Eliquis in anticipation of biopsy of left pelvic mass on 06/26/2024. LLE Venous Doppler now shows extensive DVT through common femoral, SFV, and greater saphenous on left (previous venous doppler neg 2 weeks ago) #Acute DVT of left common femoral/superficial femoral/and left greater saphenous vein/Recent acute DVT left iliac vein-compelted 7 days of loading Eliquis dose and then was on 5mg po bid dose but held since 06/22 for IR biopsy Likely extension of DVT from compression from pelvic mass plus from being off anticoagulation x 3 days No evidence of PE-no hypoxia,tachycardia,chest pain,SOB, hypotension Continue heparin gtt after IR biopsy through tomorrow and then if no signs of bleeding from biopsy, can restart Eliquis--> given new acute DVT, will plan to reload with Eliquis 10mg po bid x 7 days, then 5mg po bid Consult hematology/oncology for any further guidance Keep LLE elevated for swelling when possible Follow CBC, BMP in AM #Left pelvic mass/history of endometrial cancer- Underwent IR biopsy on 06/26, path pending Consult hematology/oncology appreciated-pending Pt has appt with her [employer]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 Had one small twinge of pain which is now gone. LLE is still swollen but is less swollen than yesterday. Denies CP, SOB, lightheadedness Denies urinary symptoms, no hematuria or hematochezia I discussed her care with Oncology, Radiology department Tele with NSR rates 70-80s Physical Exam Constitutional: WD/WN, vitals as above Respiratory: normal respiratory effort, lungs clear to auscultation Cardiovascular: Rate/Rhythm: regular rate and regular rhythm Heart Sounds: no murmur Extremities: + edema (LLE 1+ edema) Results & Data Results & Data Vital Signs (Past 12 Hours) Vital Signs Temp Pulse Pulse Pulse Resp BP Pulse Ox 06/26/24 15:03 36.5 C 73 16 126/73 95 06/26/24 14:37 77 06/26/24 13:30 36.5 C 76 18 145/72 H 97 06/26/24 13:00 36.5 C 86 18 147/72 H 97 06/26/24 12:30 36.6 C 89 18 151/73 H 97 06/26/24 12:00 36.5 C 93 H 18 159/78 H 96 06/26/24 11:33 36.5 C 83 18 168/71 H 97 06/26/24 07:47 36.7 C 73 18 148/72 H 98 06/26/24 07:18 73 O2 Del Method 06/26/24 15:03 Room Air 06/26/24 14:37 06/26/24 13:30 Room Air 06/26/24 13:00 Room Air 06/26/24 12:30 Room Air 06/26/24 12:00 Room Air 06/26/24 11:33 Room Air 06/26/24 07:47 Room Air 06/26/24 07:18 Laboratory Results CBC, BMP, mag, AntiXA levels reviewed PG Care Time/CCT Total # of Minutes Spent Total Time Spent with Patient: Total time spent is greater than 50% in coordination of care (as documented) at patient's floor/unit and/or counseling patient: Coding Level of Care Code 86147 SUB INP/OBS CARE 3/50MIN Diagnoses Acute deep vein thrombosis (DVT) of femoral vein of left lower extremity I82.412 Pelvic mass R19.00 Hydronephrosis N13.30 Endometrial cancer C54.1
[2024-06-27 04:43] LABS: Albumin Level 3.7 gm/dl (3.4-5.0); BUN Creatinine Ratio 16.8 (10-20); Calcium 9.4 mg/dl (8.6-10.3); Creatinine Clr Calc Pharmacy 55.3 ml/min; Phosphorus 3.6 mg/dl (2.5-4.9)
[2024-06-27 04:47] LABS: Basophils # (auto) 0.06 K/uL (0.00-0.20); Basophils % (auto) 0.8 %; Eosinophils # (auto) 0.22 K/uL (0.00-0.50); Eosinophils % (auto) 3.1 %; Hematocrit (blood only) 33.6 % (37.0-47.0); Hemoglobin 11.5 g/dl (12.0-16.0); Immature Granulocytes # (auto) 0.01 K/uL (0.01-0.20); Immature Granulocytes % (auto) 0.1 %; Lymphocytes # (auto) 2.06 K/uL (1.20-3.40); Lymphocytes % (auto) 28.6 %; Mean Corpuscular Hemoglobin 30.7 pg (25.0-34.0); Mean Corpuscular Hgb Conc 34.2 g/dL (32.0-36.0); Mean Corpuscular Volume 89.6 fL (80.0-100.0); Mean Platelet Volume 10.3 fL (9.4-12.4); Monocytes # (auto) 0.87 K/uL (0.11-0.59); Monocytes % (auto) 12.1 %; Neutrophils # (auto) 3.99 K/uL (1.40-6.50); Neutrophils % (auto) 55.3 %; Platelet Count 202 K/uL (130-400); RDW Coefficient of Variation 12.4 % (11.5-14.5); RDW Standard Deviation 40.6 fL (36.4-46.3); Red Blood Count 3.75 M/uL (4.20-5.40); White Blood Count 7.21 K/ul (4.8-10.8)
[2024-06-27 04:50] LABS: ANTI-Xa, UFH(UnfractionatedHep 0.47 IU/ml (0.3-0.7)
[2024-06-27] MEDS: lisinopril 5 MG TAB PO SCH (07:34)
[2024-06-27] MEDS: APIXABAN 5 MG TABLET PO SCH (10:51)
[2024-06-27 11:57] VITALS: BP 149/69; PULSE 82; RESP 18; TEMP 98.2; O2SAT 96
--- NOTE | 2024-06-27 12:38 | Discharge Summary ---
Discharge Summary Date of Service June 27, 2024 Principal Dx & Hospital Course #1 = Principal Diagnosis (1) Acute deep vein thrombosis (DVT) of femoral vein of left lower extremity: (2) Pelvic mass: (3) Hydronephrosis: (4) Endometrial cancer: Plan The patient is a 73-year-old female with a past medical history including UTI with hydronephrosis, impaired glucose tolerance, endometrial cancer, and recent partially occlusive pelvic DVT associated with left pelvic mass causing left hydronephrosis w/ ureteral stent placement. She presents as a referral from PCP w/ worsening LLE edema x 24 hours, associated with holding Eliquis in anticipation of biopsy of left pelvic mass on 06/26/2024. LLE Venous Doppler now shows extensive DVT through common femoral, SFV, and greater saphenous on left (previous venous doppler neg 2 weeks ago) #Acute DVT of left common femoral/superficial femoral/and left greater saphenous vein/Recent acute DVT left iliac vein-completed 7 days of loading Eliquis dose and then was on 5mg po bid dose but held since 06/22 for IR biopsy Likely extension of DVT from compression from pelvic mass plus from being off anticoagulation x 3 days No evidence of PE-no hypoxia,tachycardia,chest pain,SOB, hypotension Was on heparin gtt with therapeutic AntiXA levels here and had no signs of bleeding from biopsy. 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 with 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 She presents to the emergency department as a referral from the outpatient office with worsening left lower extremity edema over the past 24 hours, associated with stoppage of Eliquis that she had been on in anticipation of biopsy of left pelvic mass on 06/26/2024. Discharge Exam Constitutional WD/WN, vitals as above Respiratory normal respiratory effort, lungs clear to auscultation Cardiovascular Rate/Rhythm: regular rate and regular rhythm Heart Sounds: no murmur Extremities: + edema (LLE 1+ edema) Discharge Plan Discharge Items Patient Disposition: Home - Self-Care Reason For Visit: DVT LLE, PELVIC MASS BIOPSY Discharge Diagnosis: Acute DVT Pelvic mass with biopsy Condition on Discharge: Good Activity: As commented below Lifting: No more than 5 pounds Lifting Comment: x 1 week after biopsy Bathing Comment: No bathing x 2 more days but can shower Exercise/Sports: Gradually increase as tolerated Exercise Comment: no rigorous exercise Non-emergency contact: Primary Care Provider, Surgeon and Oncologist Call non-emergency contact if: you have any medication questions, your symptoms worsen and your pain is not controlled Follow-up/Referrals: Tristen Disla CRNP [Primary Care Provider] - (Follow up within 1-2 weeks) Jaskaran Dumont MD [Physician] - (Follow up as needed with the local oncologist) Diet: Regular Addtl Attending Provider Instructions: Please take the loading dose of Eliquis again at 10mg twice a day x 7 days and then drop down to 5mg twice a day after that. Try to elevate your left leg when possible and avoid being on your feet/upright for more than 1 hour at a time. If you develop chest pain, shortness of breath, lightheadedness, or any problems with bleeding, please call 911 or go to the hospital right away. Please keep your scheduled appointment with Dr. Barbosa of C[employer] TECHNICIAN SPECIAL[facility]-Oncology on Tuesday. Pending Studies at Discharge: Yes (Biopsy result) Stand-Alone Forms: My [a]list games Medications and DC Order Prescriptions: New acetaminophen 325 mg Tablet 650 mg PO Q4H PRN (Reason: pain) Qty: 30 0RF Continued cholecalciferol (vitamin D3) 25 mcg (1,000 unit) capsule 25 mcg PO QPM multivitamin Tablet 1 tab PO QPM baclofen 5 mg tablet 5 mg PO BID PRN (Reason: muscle spasm) Qty: 60 2RF atorvastatin 20 mg tablet 20 mg PO QPM lisinopril [Zestril] 5 mg Tablet 5 mg PO QAM Qty: 30 0RF Changed Eliquis 5 mg tablet See Rx Instructions .ROUTE .COMPLEX Qty: 67 0RF Rx Instructions: Take 10mg (2 tablets) twice a day for 6 1/2 days days followed by 5mg (1 tablet) twice a day Discharge Orders: Discharge Order (Routine); Ordered 06/27/24 Ordered By: Olivia Hall Admission Data Admit Date/Time: 06/25/24 20:15 Attending Provider: Olivia Hall Admit Provider: Gabriel Aponte Primary Care Provider: Tristen Disla Other Providers: Gabriel Aponte; Jaskaran Dumont Hospital Stay Data Consultations 06/25/24 19:18 ED Decision to Admit Stat 06/26/24 08:31 Consult Oncology Routine Diagnostic Imagining Performed 06/26/24 08:08 IR biopsy muscle percutaneous Routine Pending Results Patient Have Any Pending Studies at Discharge: Yes (Biopsy result) Discharge Instructions Given to Patient (Per Discharging Provider) Please take the loading dose of Eliquis again at 10mg twice a day x 7 days and then drop down to 5mg twice a day after that. Try to elevate your left leg when possible and avoid being on your feet/upright for more than 1 hour at a time. If you develop chest pain, shortness of breath, lightheadedness, or any problems with bleeding, please call 911 or go to the hospital right away. Please keep your scheduled appointment with Dr. Barbosa of [employer]CHNICIAN [facility]IST-Oncology on Tuesday. Total Time Total Time Spent Total Time Spent (In Minutes): 35 min Total Time Includes: Examination of the Patient, Discharge Planning and Medication Reconciliation Coding Level of Care Code 45729 INP/OBS DISCH >30 MIN Diagnoses Acute deep vein thrombosis (DVT) of femoral vein of left lower extremity I82.412 Pelvic mass R19.00 Hydronephrosis N13.30 Endometrial cancer C54.1
== END 2024-06-27 14:01 | disposition home or self-care (01) | DRG 300 ==
LOC: ED 15:42 → SUATTDRO 20:15 → EDINP 20:15 → 2W 22:25

== ENCOUNTER 2024-12-16 16:13 | Inpatient (IN) ==
--- NOTE | 2024-12-16 16:41 | Emergency Department Note ---
Impression & Plan Dizziness, Acute dehydration, Hypomagnesemia, ERIK (acute kidney injury), Pancytopenia ED Provider Note HISTORY OF PRESENT ILLNESS: Patient is a 74-year-old female presenting with dizziness and lightheadedness. Patient reports that she is concerned she is dehydrated, she has not had much of an appetite for the last week. Denies any fevers. She last received an infusion of chemo 3 weeks ago. She is currently being treated for metastatic endometrial cancer. No reported fevers. She does report she has had some dysuria and had a urine sent off last week but was not yet told of any results. Denies any abdominal pain. Reports nausea but denies any vomiting or diarrhea. Reports she just has not been interested in eating or drinking anything in the last week. Reports that over the last few days she has been feeling very lightheaded and dizzy when she gets up to do anything. Denies any chest pain or shortness of breath. Denies any DVT or PE history. She is on Eliquis. Denies any DVT or PE history. Family at bedside (who is a retired RN) took the patient's blood pressure at home and the patient had a blood pressure of 90 systolic. ROS: as above PHYSICAL EXAM: Constitutional: Patient appears in no acute distress. HENT: Head: Normocephalic and atraumatic. Eyes: EOMI, PERRL Mouth/Throat: Mucous membranes dry. Neck: Trachea midline. Neck supple. Cardiovascular: Tachycardic with regular rhythm. No murmurs, rubs or gallops. Intact distal pulses. Pulmonary/Chest: No respiratory distress. Breath sounds clear and equal bilaterally. No wheezes or rales. Abdominal: Abdomen soft, no tenderness, rebound or guarding. Musculoskeletal: No edema, tenderness or deformity noted. Skin: Warm and dry. No rash, erythema, pallor or cyanosis Psychiatric: Appropriate mood and affect for situation. Neurological: Alert and keenly responsive. CN II-XII grossly intact, moving all extremities equally and fully. MDM: - Vitals signs showed hypotension and tachycardia. - History obtained via patient. History as above. - Chronic conditions affecting care: HLD; endometrial cancer; HTN; anxiety/depression - Differential diagnoses include, but are not limited to: Dehydration; electrolyte abnormality; sepsis; UTI; pneumonia; ACS - Order placed for continuous cardiac monitoring. At this time, monitor showed rate of 98 bpm with normal sinus rhythm, per my interpretation. - External medical records reviewed. Hematology/oncology report dated 11/19/2024 was reviewed. Patient follows in their clinic for relapsed endometrial cancer. - EKG image interpreted by myself showed normal sinus rhythm. Rate 94 bpm. QT 366. No acute ischemic changes. - Laboratory workup interpreted by myself showed Pancytopenia (WBC 4.49; Hgb 7.8; plt 110); stable electrolytes other than hypomagnesemia (Mg 1.3); ERIK (Cr 1.23 - baseline around 0.6-0.7); normal AST/ALT; normal troponin; normal procalcitonin; normal lactic acid; normal TSH - Blood cultures obtained - CXR image reviewed by myself is negative for pneumonia, per my interpretation. - Patient given 2.5L NS in ER. Patient sepsis fluid volume calculation based on actual body weight is 2220.00 mL. - Given 2g IV rocephin empirically - Given 2g IV magnesium for electrolyte replacement. - UA ordered. - Discussion was had with case management director about patient's case and need for admission - Hospitalist, Dr. Menendez, consulted for admission - Patient admitted to [facility] for further evaluation and management. ASSESSMENT AND PLAN: Diagnosis: dizziness; acute dehydration; pancytopenia; hypomagnesemia; ERIK Plan: admit Past Med/Surg History Problem List (Updated 12/16/24 @ 18:12 by Rachel Ramos MD) Pancytopenia (Acute) ERIK (acute kidney injury) (Acute) Hypomagnesemia (Acute) Acute dehydration (Acute) Dizziness (Acute) Thyroid goiter Low TSH level Anxiety and depression Hypertension History of pelvic mass (Acute) Hydronephrosis Cervical spondylosis DDD (degenerative disc disease) Chronic pain Cervical Spine area Endometrial cancer (Chronic 02/14/20) Simple goiter Vitamin D insufficiency Impaired glucose metabolism Hyperlipidemia LDL goal <100 Medical History History of colon polyps History of COVID-19 Degeneration of cervical intervertebral disc Frequent urination Endometrial cancer History of DVT (deep vein thrombosis) Anxiety and depression Hypertension Hx of renal calculi Degenerative disc disease Bulging lumbar disc HLD (hyperlipidemia) Cardiac murmur History of endometrial cancer Arthritis Multiple thyroid nodules Osteopenia Surgical History History of urologic surgery History of biopsy Port-A-Cath in place (08/10/24) S/P biopsy Hx of lithotripsy History of colonoscopy History of robot-assisted laparoscopic hysterectomy (03/06/20) History of tooth extraction Family History Aunt Breast cancer, Onset Age: 80 Mother Heart disease Myocardial infarction Hypertension Father No problems noted. Sister Esophageal cancer, Onset Age: 64 Sister No problems noted. Sister No problems noted. Son No problems noted. Other Diabetes No family history of adverse response to anesthesia Denies family history of Ovarian cancer Prostate cancer Lung cancer Colorectal cancer Social History Smoking Status: Never smoker Tobacco Type: Cigarettes Age Started Using Tobacco: 17; Age Quit Using Tobacco: 35; packs per day: 1; Second Hand Exposure: Yes (Father smoked in home ); Do You Dip or Chew Tobacco: No; Hx Substance Use: No Preferred Language: Polish Communication Ability: Effective Visual Impairment: No Limitations Hearing Ability: Normal Credit Administration Manager Required: No Beliefs That Will Affect Care: None marital status: Single Current Living Situation: Alone current occupational status: retired 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 How many Children do You have: 1 Feels Safe at Home: Yes Childhood Exposure to Second-Hand Smoke: Yes Diet: regular Diet Comment: regular caffeine: Yes (coffee morning) during the past year weight has: remained stable Dental Care, Regularly: Yes Physical Activity Frequency: 3-4 Times per Week Seatbelt Use: always Sunscreen Use: Yes Assistive Devices: None Allergies Allergies Allergy/AdvReac Type Severity Reaction Status Date / Time No Known Allergies Allergy Verified 11/28/24 10:06 Home Meds Home Medications Medication Instructions Recorded Confirmed multivitamin 1 tab PO QPM 04/16/20 12/16/24 olanzapine 2.5 mg tablet 2.5 mg PO UD PRN 07/18/24 12/16/24 Nausea/chemotherapy dexamethasone 4 mg tablet 20 mg PO UD PRN chemotherapy 07/31/24 12/16/24 anastrozole 1 mg tablet (Arimidex) 1 mg PO DAILY 11/08/24 12/16/24 enoxaparin 60 mg/0.6 mL 60 mg subcut UD PRN Other 11/08/24 12/16/24 subcutaneous syringe gabapentin 300 mg capsule 300 mg PO TID 11/08/24 12/16/24 Previous Rx's Medication Instructions Recorded lisinopril 5 mg tablet (Zestril) 5 mg PO QAM #90 tabs 10/18/24 apixaban 5 mg tablet (Eliquis) 5 mg PO BID #60 tabs 11/19/24 atorvastatin 20 mg tablet 20 mg PO HS #90 tabs 12/03/24 Results & Data (ED) Vital Signs Vital Signs - 24 hr 12/16/24 16:16 12/16/24 16:30 12/16/24 16:30 Temperature 36.5 C Temperature Source Temporal Artery Scan Pulse Rate 114 H 93 H Pulse Rate [Apical] Pulse Rate from SpO2 Sensor Pulse Rhythm Regular Respiratory Rate 18 Respiratory Effort / Characteristics Non-Labored Spontaneous Respiratory Depth Normal Respiratory Pattern Regular Blood Pressure 75/47 L 94/48 L Blood Pressure [Right Arm] Blood Pressure Mean 56 55 Blood Pressure Mean [Right Arm] Blood Pressure Position Sitting Blood Pressure Position [Right Arm] Pulse Oximetry 98 Oxygen Delivery Method Room Air Sepsis Recent Fever Within 48 Hours No Sepsis New/Unexplained Change in Mental Status No Sepsis Action Taken by Nursing Physician Notified 12/16/24 16:30 12/16/24 16:42 12/16/24 16:45 Temperature Temperature Source Pulse Rate 88 92 H Pulse Rate [Apical] Pulse Rate from SpO2 Sensor Pulse Rhythm Respiratory Rate 22 Respiratory Effort / Characteristics Respiratory Depth Respiratory Pattern Blood Pressure 94/48 L Blood Pressure [Right Arm] Blood Pressure Mean 55 Blood Pressure Mean [Right Arm] Blood Pressure Position Blood Pressure Position [Right Arm] Pulse Oximetry Oxygen Delivery Method Room Air Sepsis Recent Fever Within 48 Hours Sepsis New/Unexplained Change in Mental Status Sepsis Action Taken by Nursing 12/16/24 16:48 12/16/24 16:58 12/16/24 17:00 Temperature 36.5 C Temperature Source Oral Pulse Rate 91 H Pulse Rate [Apical] 95 H Pulse Rate from SpO2 Sensor Pulse Rhythm Respiratory Rate 22 16 Respiratory Effort / Characteristics Non-Labored Spontaneous Respiratory Depth Normal Respiratory Pattern Regular Blood Pressure 100/49 L Blood Pressure [Right Arm] 100/49 L Blood Pressure Mean 71 Blood Pressure Mean [Right Arm] 66 Blood Pressure Position Blood Pressure Position [Right Arm] Lying Pulse Oximetry 96 Oxygen Delivery Method Room Air Sepsis Recent Fever Within 48 Hours Sepsis New/Unexplained Change in Mental Status Sepsis Action Taken by Nursing 12/16/24 17:00 12/16/24 17:00 12/16/24 17:03 Temperature Temperature Source Pulse Rate 96 H Pulse Rate [Apical] Pulse Rate from SpO2 Sensor Pulse Rhythm Respiratory Rate 20 Respiratory Effort / Characteristics Respiratory Depth Respiratory Pattern Blood Pressure 100/49 L 100/49 L Blood Pressure [Right Arm] Blood Pressure Mean 71 71 Blood Pressure Mean [Right Arm] Blood Pressure Position Blood Pressure Position [Right Arm] Pulse Oximetry Oxygen Delivery Method Sepsis Recent Fever Within 48 Hours Sepsis New/Unexplained Change in Mental Status Sepsis Action Taken by Nursing 12/16/24 17:12 12/16/24 17:20 12/16/24 17:21 Temperature Temperature Source Pulse Rate 98 H Pulse Rate [Apical] Pulse Rate from SpO2 Sensor Pulse Rhythm Respiratory Rate 21 Respiratory Effort / Characteristics Respiratory Depth Respiratory Pattern Blood Pressure 104/44 L Blood Pressure [Right Arm] Blood Pressure Mean 61 Blood Pressure Mean [Right Arm] Blood Pressure Position Blood Pressure Position [Right Arm] Pulse Oximetry 96 Oxygen Delivery Method Room Air Sepsis Recent Fever Within 48 Hours Sepsis New/Unexplained Change in Mental Status Sepsis Action Taken by Nursing 12/16/24 17:39 12/16/24 17:40 12/16/24 17:40 Temperature Temperature Source Pulse Rate 98 H Pulse Rate [Apical] Pulse Rate from SpO2 Sensor 98 H Pulse Rhythm Respiratory Rate 18 Respiratory Effort / Characteristics Respiratory Depth Respiratory Pattern Blood Pressure 107/60 107/60 Blood Pressure [Right Arm] Blood Pressure Mean 75 75 Blood Pressure Mean [Right Arm] Blood Pressure Position Blood Pressure Position [Right Arm] Pulse Oximetry 97 Oxygen Delivery Method Sepsis Recent Fever Within 48 Hours Sepsis New/Unexplained Change in Mental Status Sepsis Action Taken by Nursing 12/16/24 17:48 12/16/24 17:50 12/16/24 17:50 Temperature Temperature Source Pulse Rate 94 H Pulse Rate [Apical] Pulse Rate from SpO2 Sensor 94 H Pulse Rhythm Respiratory Rate 14 Respiratory Effort / Characteristics Respiratory Depth Respiratory Pattern Blood Pressure 120/62 120/62 Blood Pressure [Right Arm] Blood Pressure Mean 77 77 Blood Pressure Mean [Right Arm] Blood Pressure Position Blood Pressure Position [Right Arm] Pulse Oximetry 97 Oxygen Delivery Method Sepsis Recent Fever Within 48 Hours Sepsis New/Unexplained Change in Mental Status Sepsis Action Taken by Nursing 12/16/24 17:51 12/16/24 17:54 12/16/24 18:10 Temperature Temperature Source Pulse Rate 99 H 98 H Pulse Rate [Apical] Pulse Rate from SpO2 Sensor 100 H 101 H Pulse Rhythm Respiratory Rate 17 21 Respiratory Effort / Characteristics Respiratory Depth Respiratory Pattern Blood Pressure 112/83 Blood Pressure [Right Arm] Blood Pressure Mean 105 Blood Pressure Mean [Right Arm] Blood Pressure Position Blood Pressure Position [Right Arm] Pulse Oximetry 91 97 Oxygen Delivery Method Sepsis Recent Fever Within 48 Hours Sepsis New/Unexplained Change in Mental Status Sepsis Action Taken by Nursing 12/16/24 18:21 12/16/24 18:30 Temperature Temperature Source Pulse Rate Pulse Rate [Apical] Pulse Rate from SpO2 Sensor Pulse Rhythm Respiratory Rate Respiratory Effort / Characteristics Respiratory Depth Respiratory Pattern Blood Pressure 109/64 108/81 Blood Pressure [Right Arm] Blood Pressure Mean 73 84 Blood Pressure Mean [Right Arm] Blood Pressure Position Blood Pressure Position [Right Arm] Pulse Oximetry Oxygen Delivery Method Sepsis Recent Fever Within 48 Hours Sepsis New/Unexplained Change in Mental Status Sepsis Action Taken by Nursing Laboratory Data 12/16/24 16:42 12/16/24 16:42 Lab Results 12/16/24 Range/Units 16:42 WBC 4.49 L (4.8-10.8) K/ul RBC 2.26 L (4.20-5.40) M/uL Hgb 7.8 L (12.0-16.0) g/dl Hct 22.3 L (37.0-47.0) % MCV 98.7 (80.0-100.0) fL MCH 34.5 H (25.0-34.0) pg MCHC 35.0 (32.0-36.0) g/dL RDW Std Deviation 52.9 H (36.4-46.3) fL RDW Coeff of Nico 14.8 H (11.5-14.5) % Plt Count 110 L (130-400) K/uL MPV 11.3 (9.4-12.4) fL Immature Gran % (Auto) 0.2 % Neut % (Auto) 51.9 % Lymph % (Auto) 33.0 % [place] % (Auto) 13.6 % Eos % (Auto) 0.9 % Baso % (Auto) 0.4 % Neut # (Auto) 2.33 (1.40-6.50) K/uL Lymph # (Auto) 1.48 (1.20-3.40) K/uL [place] # (Auto) 0.61 H (0.11-0.59) K/uL Eos # (Auto) 0.04 (0.00-0.50) K/uL Baso # (Auto) 0.02 (0.00-0.20) K/uL Immature Gran # (Auto) 0.01 (0.01-0.20) K/uL RBC Morphology Unremarkable Sodium 136 (136-145) mmol/L Potassium 3.7 (3.5-5.1) mmol/L Chloride 104 (98-107) mmol/L Carbon Dioxide 21 (21-32) mmol/L Anion Gap 11 (3-11) BUN 25 H (6-23) mg/dl Creatinine 1.23 H (0.6-1.2) mg/dl Est Cr Clr Drug Dosing 40.7 ml/min eGFR 45.83 BUN/Creatinine Ratio 20.3 H (10-20) Glucose 101 H (70-99(Fasting)) mg/dl Lactate 1.0 (0.4-2.0) mmol/L Calcium 9.4 (8.6-10.3) mg/dl Magnesium 1.3 L (1.7-2.4) mg/dl Total Bilirubin 0.8 (0.2-1.0) mg/dl Direct Bilirubin 0.2 (0-0.2) mg/dl AST 27 (13-39) U/L ALT 18 (7-52) U/L Alkaline Phosphatase 66 (34-104) U/L Troponin I High Sens 8.0 (0-14) pg/ml Total Protein 6.0 (6.0-8.3) gm/dl Albumin 3.4 (3.4-5.0) gm/dl Procalcitonin 0.11 (0-0.5) ng/ml TSH 2.175 (0.300-4.500) uIu/ml Administered Medications Discontinued Medications Sodium Chloride (Nss) 2,000 mls @ 999 mls/hr IV .Q2H1M ONE Stop: 12/16/24 18:21 Last Infusion: 12/16/24 19:01 Dose: Infused Documented By: Admin: 12/16/24 16:57 Dose: 999 mls/hr Documented By: LAURA Sodium Chloride (Nss) 500 mls @ 999 mls/hr IV .Q31M ONE Stop: 12/16/24 17:44 Last Infusion: 12/16/24 18:51 Dose: Infused Documented By: Admin: 12/16/24 17:27 Dose: 999 mls/hr Documented By: MAYNOR Magnesium Sulfate/Dextrose (Magnesium Sulfate / D5w) 1 gm in 100 mls @ 100 mls/hr IV Q1H JEANNA Stop: 12/16/24 19:13 Last Admin: 12/16/24 18:11 Dose: 100 mls/hr Documented By: Infusion: 12/16/24 18:11 Dose: Infused Documented By: Admin: 12/16/24 17:24 Dose: 100 mls/hr Documented By: MAYNOR Ceftriaxone Sodium (Rocephin) 2,000 mg in 50 mls @ 100 mls/hr IV NOW STA Stop: 12/16/24 18:38 Last Infusion: 12/16/24 19:01 Dose: Infused Documented By: Admin: 12/16/24 18:23 Dose: 100 mls/hr Documented By: MAYNOR Imaging Data Radiologist's Impression: Chest X-Ray 12/16/24 16:21 EXAM: Portable AP chest radiograph TECHNIQUE: AP portable radiograph of the chest was obtained. INDICATION: Shortness of breath Comparison: Chest radiograph August 10, 2024. FINDINGS: LINES and TUBES: Left-sided Port-A-Cath with tip projecting over the superior cavoatrial junction. CARDIOVASCULAR: Cardiac silhouette is stably and mildly enlarged in size. LUNGS/PLEURA: No focal consolidation identified. Mild pulmonary vascular congestion and chronic interstitial lung changes. No significant pleural fluid. No discernible pneumothorax. OSSEOUS/OTHER: No displaced acute osseous process identified. IMPRESSION: Mild congestive changes of the cardiovascular system. No focal pulmonary consolidation identified. Electronically signed by Aidan Mi 12-16-2024 7:08 PM Discharge Plan Visit Data Chief Complaint: Weakness Stated Complaint: WEAKNESS, LOSS OF APPETITE, FEELING FAINT ED Provider: Rachel Ramos Discharge Problem: Dizziness, Acute dehydration, Hypomagnesemia, ERIK (acute kidney injury), Pancytopenia Condition: Fair Forms Stand Alone Forms: [facility] Prescriptions Prescriptions: No Action multivitamin Tablet 1 tab PO QPM Patient Comments: 12/16- otc unable to verify lisinopril [Zestril] 5 mg tablet 5 mg PO QAM Qty: 90 1RF Eliquis 5 mg tablet 5 mg PO BID Qty: 60 3RF Hold Instructions: Resume on 08/11/24. You may resume at 10:00 on Tuesday atorvastatin 20 mg tablet 20 mg PO HS Qty: 90 3RF olanzapine 2.5 mg tablet 2.5 mg PO UD PRN (Reason: Nausea/chemotherapy) gabapentin 300 mg capsule 300 mg PO TID enoxaparin 60 mg/0.6 mL syringe 60 mg subcut UD PRN (Reason: Other) Rx Instructions: q12h anastrozole [Arimidex] 1 mg tablet 1 mg PO DAILY dexamethasone 4 mg Tablet 20 mg PO UD PRN (Reason: chemotherapy) Referrals Referrals: Tristen Disla CRNP [Primary Care Provider] -
[2024-12-16 16:55] LABS: Hematocrit (blood only) 22.3 % (37.0-47.0); Hemoglobin 7.8 g/dl (12.0-16.0); Immature Granulocytes # (auto) 0.01 K/uL (0.01-0.20); Immature Granulocytes % (auto) 0.2 %; Mean Corpuscular Hemoglobin 34.5 pg (25.0-34.0); Mean Corpuscular Volume 98.7 fL (80.0-100.0); Platelet Count 110 K/uL (130-400); RDW Standard Deviation 52.9 fL (36.4-46.3); Red Blood Count 2.26 M/uL (4.20-5.40); White Blood Count 4.49 K/ul (4.8-10.8)
[2024-12-16] MEDS: SODIUM CHLORIDE 0.9% 2,000 ML IV ONE (16:57)
[2024-12-16 17:12] LABS: Alanine Aminotransferase 18.0 U/L (7-52); Alkaline Phosphatase 66.0 U/L (34-104); Anion Gap 11.0 (3-11); Bilirubin,Total 0.8 mg/dl (0.2-1.0); Blood Urea Nitrogen 25.0 mg/dl (6-23); Calcium 9.4 mg/dl (8.6-10.3); Carbon Dioxide 21.0 mmol/L (21-32); Chloride 104.0 mmol/L (98-107); Creatinine Clr Calc Pharmacy 40.7 ml/min; Glucose 101.0 mg/dl (70-99(Fasting)); Magnesium 1.3 mg/dl (1.7-2.4); Potassium 3.7 mmol/L (3.5-5.1); Sodium 136.0 mmol/L (136-145); Total Protein 6.0 gm/dl (6.0-8.3)
[2024-12-16 17:19] LABS: RBC Morphology Unremarkable
[2024-12-16] MEDS: MAGNESIUM SULFATE / D5W 1 GM/100 ML BAG IV SCH (17:24)
[2024-12-16] MEDS: SODIUM CHLORIDE 0.9% 500 ML IV ONE (17:27)
[2024-12-16] MEDS: cefTRIAXone SODIUM 2,000 MG/50 ML BAG IV STA (18:23)
--- NOTE | 2024-12-16 19:09 | XRay Report ---
EXAM: Portable AP chest radiograph TECHNIQUE: AP portable radiograph of the chest was obtained. INDICATION: Shortness of breath Comparison: Chest radiograph August 10, 2024. FINDINGS: LINES and TUBES: Left-sided Port-A-Cath with tip projecting over the superior cavoatrial junction. CARDIOVASCULAR: Cardiac silhouette is stably and mildly enlarged in size. LUNGS/PLEURA: No focal consolidation identified. Mild pulmonary vascular congestion and chronic interstitial lung changes. No significant pleural fluid. No discernible pneumothorax. OSSEOUS/OTHER: No displaced acute osseous process identified. IMPRESSION: Mild congestive changes of the cardiovascular system. No focal pulmonary consolidation identified. Electronically signed by Aidan Mi 12-16-2024 7:08 PM
--- NOTE | 2024-12-16 19:16 | History & Physical Report ---
Date of Service December 16, 2024 Assessment & Plan (1) ERIK (acute kidney injury): Plan: 74-year-old female with a history of metastatic endometrial adenocarcinoma on chemotherapy/immunotherapy who presents with ERIK, volume contraction, poor oral intake 3 weeks after her last chemotherapy treatment, and with possible UTI. She has not toxic appearing, was hypotensive and tachycardic however this resolved on fluids. No rigors/chills. Afebrile ERIK, suspect prerenal Mucous membranes dry. Patient with poor p.o. intake for several days Creatinine baseline approximately 0.76 Creatinine on admission 1.23 S/p 2500 cc NSS in the ER Hypotension resolved post fluids, taina mildly tachycardic Trend BMP daily Hold lisinopril Suspected UTI Reports some slight pain/discomfort at the end of morning in the last week. Has history of left hydronephrosis due to pelvic mass with left indwelling stent. This may be a nidus for infection Repeat UA pending. She did have an outpatient UA which was inconclusive, was pending redraw as an outpatient but this has not yet been done Covered empirically with Rocephin on admission, blood cultures pending Acute on chronic anemia, pancytopenia likely 2/2 chemotherapy Hemoglobin 7.8, baseline approximately 9.110.8 Plt count 110, WBC 4.49. She is not neutropenic. No acute bleeding Hemoglobin may also be slightly lower as she appears hemoconcentrated/volume contracted MCV 98.7 Likely chemotherapy-induced Hemoglobin trended every 8 hours Type and cross on file No evidence of cardiac ischemia to indicate liberalized threshold. Will transfuse threshold of 7.0, or symptoms Metastatic endometrial adenocarcinoma On anastrozole, Carbo/Taxol, pembrolizumab Noted, no acute change in management History of DVT/PE Continue Eliquis indefinitely She is no longer on Lovenox, may use this as a transient bridge in the past. Removed from med list Hypertension Hypotensive on admission. This resolved with fluids, normotensive at time of admitting/ Lisinopril held for hypotension and ERIK Neuropathy Continue gabapentin, this has not had minimal benefit Hyperlipidemia, history of premature atherosclerosis Statin continued DVT prophylaxis: Anticoagulated Diet: Regular Disposition: MS. BP has normalized 130 systolic, pulse downtrending, appears clinically well at bedside post fluid resuscitation no antibiotics per no chest pain or cardiac symptoms CODE STATUS (2) Pancytopenia: (3) UTI (urinary tract infection): (4) Hypertension: (5) Endometrial cancer: History of Present Illness Primary Care Provider: SEBAS Joiner Gabi is a 74-year-old female with a past medical history of anxiety/depression, hypertension, degenerative disc disease, hyperlipidemia, prediabetes, left pelvic mass biopsy positive for metastatic endometrial adenocarcinoma subsequently on chemo/immunosuppression/Armidex who presented to the emergency department with poor appetite, dehydration, worsening lightheadedness and dizziness for around 3 days, and was noted to be hypotensive with systolic 90s on home blood pressure check. On ER evaluation she was found to have a ERIK with baseline creatinine of approximately 0.76 acutely elevated at 1.23, clinically dry appearance, and hemoglobin 7.8 from baseline of 10.4. She reportedly has had dysuria with outpatient urine checked but no results available Gabi is seen at the bedside. She reports in the last week she has felt very tired, rundown, and progressively weaker. Worse presyncope, has not completely lost consciousness. She has had a poor appetite which may be due to chemo with her last treatment 3 weeks ago. She has no abdominal pain, nausea, vomiting, diarrhea, or constipation but just feels like she is generally not hungry. She has progressively felt weaker and more lightheaded as the week has gone. She denies fever and chills. She has had some slight discomfort/pain at the end of voiding, and has a indwelling ureteral stent due to obstructive hydronephrosis from her cancer. She had an outpatient UA which was reportedly inconclusive, was going to have a redraw done but has not yet gotten around to this. She denies flank pain/flank tenderness. No chest pain or chest pressure No shortness of breath No palpitations. She has not noticed any bleeding. Specifically denies nosebleeds, hematochezia, melena, hematemesis,/nuisance bleeding. Medical History: Reviewed Medications: Reviewed Surgical History: Reviewed Family history: Reviewed Allergies: Reviewed Social History: No tobacco/etoh Code Status:full Allergies Allergy/AdvReac Type Severity Reaction Status Date / Time No Known Allergies Allergy Verified 11/28/24 10:06 Home Medications Medication Instructions Recorded Confirmed Type multivitamin 1 tab PO QPM 04/16/20 12/16/24 History olanzapine 2.5 mg tablet 2.5 mg PO UD PRN 07/18/24 12/16/24 History Nausea/chemotherapy dexamethasone 4 mg tablet 20 mg PO UD PRN chemotherapy 07/31/24 12/16/24 History lisinopril 5 mg tablet (Zestril) 5 mg PO QAM #90 tabs 10/18/24 12/16/24 Rx anastrozole 1 mg tablet (Arimidex) 1 mg PO DAILY 11/08/24 12/16/24 History enoxaparin 60 mg/0.6 mL 60 mg subcut UD PRN Other 11/08/24 12/16/24 History subcutaneous syringe gabapentin 300 mg capsule 300 mg PO TID 11/08/24 12/16/24 History apixaban 5 mg tablet (Eliquis) 5 mg PO BID #60 tabs 11/19/24 12/16/24 Rx atorvastatin 20 mg tablet 20 mg PO HS #90 tabs 12/03/24 12/16/24 Rx Past Med/Surg History Problem List (Updated 12/16/24 @ 19:57 by Reji Menendez MD) UTI (urinary tract infection) Pancytopenia (Acute) ERIK (acute kidney injury) (Acute) Hypomagnesemia (Acute) Acute dehydration (Acute) Dizziness (Acute) Thyroid goiter Low TSH level Anxiety and depression Hypertension History of pelvic mass (Acute) Hydronephrosis Cervical spondylosis DDD (degenerative disc disease) Chronic pain Cervical Spine area Endometrial cancer (Chronic 02/14/20) Simple goiter Vitamin D insufficiency Impaired glucose metabolism Hyperlipidemia LDL goal <100 Medical History History of colon polyps History of COVID-19 Degeneration of cervical intervertebral disc Frequent urination Endometrial cancer History of DVT (deep vein thrombosis) Anxiety and depression Hypertension Hx of renal calculi Degenerative disc disease Bulging lumbar disc HLD (hyperlipidemia) Cardiac murmur History of endometrial cancer Arthritis Multiple thyroid nodules Osteopenia Surgical History History of urologic surgery History of biopsy Port-A-Cath in place (08/10/24) S/P biopsy Hx of lithotripsy History of colonoscopy History of robot-assisted laparoscopic hysterectomy (03/06/20) History of tooth extraction Family History Aunt Breast cancer, Onset Age: 80 Mother Heart disease Myocardial infarction Hypertension Father No problems noted. Sister Esophageal cancer, Onset Age: 64 Sister No problems noted. Sister No problems noted. Son No problems noted. Other Diabetes No family history of adverse response to anesthesia Denies family history of Ovarian cancer Prostate cancer Lung cancer Colorectal cancer Social History Smoking Status: Never smoker Tobacco Type: Cigarettes Age Started Using Tobacco: 17; Age Quit Using Tobacco: 35; packs per day: 1; Second Hand Exposure: Yes (Father smoked in home ); Do You Dip or Chew Tobacco: No; Hx Substance Use: No Preferred Language: American Communication Ability: Effective Visual Impairment: No Limitations Hearing Ability: Normal Rehab Services Aide Required: No Beliefs That Will Affect Care: None marital status: Single Current Living Situation: Alone current occupational status: retired current occupation: Retired [employer] How many Children do You have: 1 Feels Safe at Home: Yes Childhood Exposure to Second-Hand Smoke: Yes Diet: regular Diet Comment: regular caffeine: Yes (coffee morning) during the past year weight has: remained stable Dental Care, Regularly: Yes Physical Activity Frequency: 3-4 Times per Week Seatbelt Use: always Sunscreen Use: Yes Assistive Devices: None Physical Exam Physical Exam: General: A&Ox3. NAD. Cooperative. HEENT: Atraumatic, normocephalic. Vision/hearing intact. MM tacky. Pulm: CTAB A&P. -wheezes, -rales, -rhonchi. Symmetrical chest rise. No increased work of breathing. No respiratory distress. Thorax: Port in place. C/D/I, no erythema or tenderness Cardiac: RRR, +sm. Radial pulses intact and symmetrical. Abdominal: Nontender, nondistended, soft. BS present. Ext: warm, dry Results & Data Results & Data Vital Signs (Past 12 Hours) Vital Signs Temp Pulse Pulse Resp BP BP Pulse Ox 12/16/24 18:30 108/81 12/16/24 18:21 109/64 12/16/24 18:10 112/83 12/16/24 17:54 98 H 21 97 12/16/24 17:51 99 H 17 91 12/16/24 17:50 120/62 12/16/24 17:50 120/62 12/16/24 17:48 94 H 14 97 12/16/24 17:40 107/60 12/16/24 17:40 107/60 12/16/24 17:39 98 H 18 97 12/16/24 17:21 96 12/16/24 17:20 104/44 L 12/16/24 17:12 98 H 21 12/16/24 17:03 96 H 20 12/16/24 17:00 100/49 L 12/16/24 17:00 100/49 L 12/16/24 17:00 100/49 L 12/16/24 16:58 36.5 C 95 H 16 100/49 L 96 12/16/24 16:48 91 H 22 12/16/24 16:45 92 H 12/16/24 16:42 88 22 12/16/24 16:30 94/48 L 12/16/24 16:30 94/48 L 12/16/24 16:30 93 H 12/16/24 16:16 36.5 C 114 H 18 75/47 L 98 O2 Del Method 12/16/24 18:30 12/16/24 18:21 12/16/24 18:10 12/16/24 17:54 12/16/24 17:51 12/16/24 17:50 12/16/24 17:50 12/16/24 17:48 12/16/24 17:40 12/16/24 17:40 12/16/24 17:39 12/16/24 17:21 Room Air 12/16/24 17:20 12/16/24 17:12 12/16/24 17:03 12/16/24 17:00 12/16/24 17:00 12/16/24 17:00 12/16/24 16:58 Room Air 12/16/24 16:48 12/16/24 16:45 Room Air 12/16/24 16:42 12/16/24 16:30 12/16/24 16:30 12/16/24 16:30 12/16/24 16:16 Room Air PG Care Time/CCT Total # of Minutes Spent Total Time Spent with Patient: Total time spent is greater than 50% in coordination of care (as documented) at patient's floor/unit and/or counseling patient: Coding Level of Care Code 90989 INT INP/OBS CARE MIN Diagnoses ERIK (acute kidney injury) N17.9 Pancytopenia D61.818 UTI (urinary tract infection) N39.0 Hypertension I10 Endometrial cancer C54.1
[2024-12-16 19:18] LABS: Thyroid Stimulating Hormone 2.175 uIu/ml (0.300-4.500)
[2024-12-16 20:06] LABS: Appearance Urine Cloudy (Clear); Bacteria Urine Automated None Seen (None Seen); Cast Urine Automated 0-2 /lpf (0-2); Epithelial Cell Urine Auto 0-2 /hpf (0-2); Glucose Urine UA Negative (Negative); RBC Urine Automated >20 /hpf (0-2); WBC Urine Automated >50 /hpf (0-5)
[2024-12-16] MEDS: MAGNESIUM SULFATE / D5W 1 GM/100 ML BAG IV ONE (20:14)
[2024-12-16] MEDS: ONDANSETRON INJ 2 MG/ML 2 ML VIAL IV STA (20:42)
[2024-12-16] MEDS ORDERED: ONDANSETRON INJ 2 MG/ML 2 ML VIAL IV PRN (22:17)
[2024-12-16] MEDS ORDERED: OLANZAPINE 2.5 MG TAB PO PRN (22:17)
[2024-12-16] MEDS ORDERED: POLYETHYLENE (MIRALAX) 17 GM PACK PO PRN (22:17)
[2024-12-16] MEDS: PLASMA-LYTE A 1,000 ML IV SCH (22:48)
[2024-12-16 23:20] LABS: Hematocrit (blood only) 21.3 % (37.0-47.0); Hemoglobin 7.2 g/dl (12.0-16.0)
[2024-12-16] MEDS: APIXABAN 5 MG TABLET PO SCH (23:21)
[2024-12-16] MEDS: ATORVASTATIN 20 MG TAB PO SCH (23:21)
[2024-12-16] MEDS: GABAPENTIN 300 MG CAP PO SCH (23:22)
[2024-12-17 07:59] LABS: Hematocrit (blood only) 20.5 % (37.0-47.0); Hemoglobin 6.9 g/dl (12.0-16.0); Mean Corpuscular Hemoglobin 34.0 pg (25.0-34.0); Mean Corpuscular Volume 101.0 fL (80.0-100.0); Platelet Count 87 K/uL (130-400); RDW Standard Deviation 55.0 fL (36.4-46.3); Red Blood Count 2.03 M/uL (4.20-5.40); White Blood Count 2.65 K/ul (4.8-10.8)
[2024-12-17] MEDS ORDERED: SODIUM CHLORIDE 0.9% 100 ML IV PRN (08:05)
[2024-12-17 08:09] LABS: Anion Gap 6.0 (3-11); Blood Urea Nitrogen 19.0 mg/dl (6-23); Calcium 8.0 mg/dl (8.6-10.3); Carbon Dioxide 23.0 mmol/L (21-32); Chloride 110.0 mmol/L (98-107); Creatinine Clr Calc Pharmacy 63.2 ml/min; Glucose 86.0 mg/dl (70-99(Fasting)); Magnesium 2.0 mg/dl (1.7-2.4); Potassium 3.6 mmol/L (3.5-5.1); Sodium 139.0 mmol/L (136-145)
[2024-12-17] MEDS: ANASTROZOLE 1 MG TAB PO SCH (08:15)
[2024-12-17] MEDS: MAGNESIUM OXIDE 400 MG TAB PO SCH (08:15)
[2024-12-17 08:27] LABS: Immature Granulocytes # (auto) 0.01 K/uL (0.01-0.20); Immature Granulocytes % (auto) 0.4 %; RBC Morphology Unremarkable
[2024-12-17 08:36] LABS: Iron 48.0 mcg/dl (35-150)
[2024-12-17 12:48] LABS: Ferritin 325.8 ng/ml (8-388); Total Iron Binding Cap Calc 237.0 mcg/dl (250-450); Transferrin 169.0 mg/dl (200-360); Transferrin (FE) Percent Satur 20.0 % (15-50)
[2024-12-17 15:10] LABS: Folate (Folic Acid),Ser orPlas > 22.30 ng/ml (>5.38); Vitamin B12 > 1500 pg/ml (180-914)
--- NOTE | 2024-12-17 16:00 | Oncology Consultation ---
Date of Consultation December 17, 2024 Assessment & Plan (1) Pancytopenia: Plan -Pancytopenia likely due to recently administered chemotherapy. Please transfuse for hemoglobin below 7 and platelet count below 20,000. -Outpatient follow-up with Dr. Dumont upon discharge from hospital. History of Present Illness Reason for Consultation: chemotherapy pancytopenia Attending Physician: Harjinder Mina MD History of Present Illness 74-year-old female with recurrent endometrial cancer for which she she has been followed by my colleague Dr. Dumont and also by [employer] oncology at [facility]. Received cycle 6 of carboplatin, paclitaxel and pembrolizumab on 11/22/2024. She presented to the ER yesterday with complaints of poor oral intake and was found to have ERIK secondary to dehydration. Oncology consulted due to chemotherapy induced pancytopenia Allergies Allergy/AdvReac Type Severity Reaction Status Date / Time No Known Allergies Allergy Verified 11/28/24 10:06 Home Medications Medication Instructions Recorded Confirmed Type multivitamin 1 tab PO QPM 04/16/20 12/16/24 History olanzapine 2.5 mg tablet 2.5 mg PO UD PRN 07/18/24 12/16/24 History Nausea/chemotherapy dexamethasone 4 mg tablet 20 mg PO UD PRN chemotherapy 07/31/24 12/16/24 History lisinopril 5 mg tablet (Zestril) 5 mg PO QAM #90 tabs 10/18/24 12/16/24 Rx anastrozole 1 mg tablet (Arimidex) 1 mg PO DAILY 11/08/24 12/16/24 History enoxaparin 60 mg/0.6 mL 60 mg subcut UD PRN Other 11/08/24 12/16/24 History subcutaneous syringe gabapentin 300 mg capsule 300 mg PO TID 11/08/24 12/16/24 History apixaban 5 mg tablet (Eliquis) 5 mg PO BID #60 tabs 11/19/24 12/16/24 Rx atorvastatin 20 mg tablet 20 mg PO HS #90 tabs 12/03/24 12/16/24 Rx doxycycline hyclate 100 mg capsule 100 mg PO BID #14 caps 12/17/24 Rx Patient History Medical History History of colon polyps History of COVID-19 Degeneration of cervical intervertebral disc Frequent urination Endometrial cancer History of DVT (deep vein thrombosis) Anxiety and depression Hypertension Hx of renal calculi Degenerative disc disease Bulging lumbar disc HLD (hyperlipidemia) Cardiac murmur History of endometrial cancer Arthritis Multiple thyroid nodules Osteopenia Surgical History History of urologic surgery History of biopsy Port-A-Cath in place (08/10/24) S/P biopsy Hx of lithotripsy History of colonoscopy History of robot-assisted laparoscopic hysterectomy (03/06/20) History of tooth extraction Family History Aunt Breast cancer, Onset Age: 80 Mother Heart disease Myocardial infarction Hypertension Father No problems noted. Sister Esophageal cancer, Onset Age: 64 Sister No problems noted. Sister No problems noted. Son No problems noted. Other Diabetes No family history of adverse response to anesthesia Denies family history of Ovarian cancer Prostate cancer Lung cancer Colorectal cancer Social History Smoking Status: Former smoker Tobacco Type: Cigarettes Age Started Using Tobacco: 17; Age Quit Using Tobacco: 35; packs per day: 1; Second Hand Exposure: No; Do You Dip or Chew Tobacco: No; Tobacco Cessation Education Requested by Patient: No Hx Alcohol Use: Yes Alcohol type: wine Alcohol Intake Frequency: 2-4 x/Month Alcohol Intake Frequency Comment: once or twice a week Hx Substance Use: No Preferred Language: Arabic Communication Ability: Effective Visual Impairment: No Limitations Hearing Ability: Normal Tree Pruner Required: No Beliefs That Will Affect Care: None marital status: Single Current Living Situation: Alone Current Living Situation Comment: 2 story house current occupational status: retired 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 How many Children do You have: 1 Other Information That Helps Us Care for You: No Feels Safe at Home: Yes Safety Concerns: Feels Safe At This Time Childhood Exposure to Second-Hand Smoke: Yes Diet: regular Diet Comment: regular caffeine: Yes (coffee morning) during the past year weight has: remained stable Dental Care, Regularly: Yes Physical Activity Frequency: 3-4 Times per Week Seatbelt Use: always Sunscreen Use: Yes Assistive Devices: None Results & Data Vital Signs (Past 12 Hours) Vital Signs Temp Pulse Pulse Resp BP BP Pulse Ox 12/17/24 15:31 37.1 C 90 18 134/68 95 12/17/24 13:13 37.1 C 93 H 17 114/54 L 96 12/17/24 12:26 36.4 C L 89 16 120/66 96 12/17/24 11:26 36.7 C 90 14 126/60 95 12/17/24 10:56 36.7 C 90 14 109/63 97 12/17/24 10:41 36.8 C 88 16 126/73 95 12/17/24 10:16 36.7 C 88 14 117/71 97 12/17/24 07:23 37.2 C 95 H 18 130/63 94 O2 Del Method 12/17/24 15:31 Room Air 12/17/24 13:13 12/17/24 12:26 12/17/24 11:26 12/17/24 10:56 12/17/24 10:41 12/17/24 10:16 12/17/24 07:23 Room Air
--- NOTE | 2024-12-17 17:45 | Hospitalist Progress Note ---
Date of Service December 17, 2024 Assessment & Plan (1) ERIK (acute kidney injury): Plan: Creatinine mildly elevated on admission and has now normalized with IV fluids. Monitor urine output. Serial labs (2) Pancytopenia: Plan: Chemotherapy-induced. Hemoglobin 6.9 today, December 17. 1 unit packed red blood cell transfusion ordered. White count is 2600 and platelet count 87,000. Appreciate oncology consultation recommendations. Serial labs (3) UTI (urinary tract infection): Plan: Await urine culture and blood culture results. Continue Rocephin for now, day 2 (4) Hypertension: Plan: Lisinopril is on hold. Blood pressure is currently stable and acceptable. Will follow (5) Endometrial cancer: Plan: Currently undergoing chemotherapy for metastatic endometrial cancer. Oncology consultation and recommendations appreciated. Plan Hopeful discharge to home within the next day or 2 Admission and Anticipated Discharge Date Admission Date: December 16, 2024 Subjective Alert and oriented. No distress. Cultures remain negative. Blood pressure is acceptable while lisinopril is on hold. Creatinine has normalized and hypomagnesemia has been corrected. Blood and urine cultures remain negative. Final results are pending. She remains on intravenous Rocephin. She is receiving 1 unit packed red blood cells for hemoglobin 6.9 this morning, December 17. Iron level was acceptable. Fecal occult blood ordered and pending. Repeat hemoglobin level is pending. Oncology consultation noted. Hopefully she can go home when her blood counts stabilize, hopefully within the next day or 2. Review of Systems 2 Review of Systems: Constitutionalno fever or chills ENTno blurred vision, no double vision, no epistaxis, no sore throat Respiratoryno cough, no wheezing, no shortness of breath Cardiacno palpitations, no chest pain, no syncope [place] nausea, vomiting, diarrhea, melena, hematochezia GUno urinary retention, no urinary incontinence, no dysuria, no hematuria Musculoskeletalno joint pain, no muscle tenderness Skinno bruising, no rashes, no pruritus Neurono isolated weakness, no paresthesia, no weakness Psychno depression, no anxiety Physical Exam 2 Physical Exam: General-alert and oriented x3, no fever, no chills HEENT-head atraumatic and normocephalic, pupils equal and reactive to light, extraocular muscles intact Neck-no lymphadenopathy or thyromegaly, trachea midline Chest-clear to auscultation. No rales, wheezing or rhonchi Cardiac-regular rate and rhythm, normal S1 and S2 Abdomen-normal bowel sounds, no hepatosplenomegaly Extremities-no cyanosis, clubbing, or edema Neuro-cranial nerves II through XII intact, motor and sensory function within normal limits, strength symmetrical, no focal deficits Psych-normal affect, normal mood Results & Data Results & Data Vital Signs (Past 12 Hours) Vital Signs Temp Pulse Pulse Resp BP BP Pulse Ox 12/17/24 15:31 37.1 C 90 18 134/68 95 12/17/24 13:13 37.1 C 93 H 17 114/54 L 96 12/17/24 12:26 36.4 C L 89 16 120/66 96 12/17/24 11:26 36.7 C 90 14 126/60 95 12/17/24 10:56 36.7 C 90 14 109/63 97 12/17/24 10:41 36.8 C 88 16 126/73 95 12/17/24 10:16 36.7 C 88 14 117/71 97 12/17/24 07:23 37.2 C 95 H 18 130/63 94 O2 Del Method 12/17/24 15:31 Room Air 12/17/24 13:13 12/17/24 12:26 12/17/24 11:26 12/17/24 10:56 12/17/24 10:41 12/17/24 10:16 12/17/24 07:23 Room Air Laboratory Results 12/17/24 07:30 12/17/24 07:30 PG Care Time/CCT Total # of Minutes Spent Total Time Spent with Patient: Total time spent is greater than 50% in coordination of care (as documented) at patient's floor/unit and/or counseling patient: Coding Level of Care Code 35580 SUB INP/OBS CARE 3/50MIN Diagnoses ERIK (acute kidney injury) N17.9 Pancytopenia D61.818 UTI (urinary tract infection) N39.0 Hypertension I10 Endometrial cancer C54.1
[2024-12-17] MEDS: cefTRIAXone SODIUM 2,000 MG/50 ML BAG IV SCH (18:03)
--- NOTE | 2024-12-17 18:21 | Electrocardiogram Report ---
Test Reason : Blood Pressure : */* mmHG Vent. Rate : 94 BPM Atrial Rate : 94 BPM P-R Int : 146 ms QRS Dur : 106 ms QT Int : 366 ms P-R-T Axes : 21 -1 46 degrees QTcB Int : 457 ms Normal sinus rhythm Minimal voltage criteria for LVH, may be normal variant Abnormal ECG When compared with ECG of 11-Jun-2024 19:19, Premature ventricular complexes are no longer Present Nonspecific T wave abnormality now evident in Inferior leads Confirmed by Levon Mitchell ([id number]) on 12/17/2024 6:20:54 PM Referred By: REFERRED SELF Confirmed By: Levon Mitchell
[2024-12-17] MEDS: HEPARIN 100 UNIT/ML 5ML FLUSH FLUSH PRN (18:39)
[2024-12-17 18:47] LABS: Hematocrit (blood only) 24.6 % (37.0-47.0); Hemoglobin 8.7 g/dl (12.0-16.0)
[2024-12-17 22:11] VITALS: RESP 18
[2024-12-18] MEDS: ACETAMINOPHEN 325 MG TAB PO PRN (05:36)
[2024-12-18 09:25] LABS: Hematocrit (blood only) 25.3 % (37.0-47.0); Hemoglobin 8.9 g/dl (12.0-16.0); Immature Granulocytes # (auto) 0.00 K/uL (0.01-0.20); Immature Granulocytes % (auto) 0.0 %; Mean Corpuscular Hemoglobin 33.5 pg (25.0-34.0); Mean Corpuscular Volume 95.1 fL (80.0-100.0); Platelet Count 98 K/uL (130-400); RDW Standard Deviation 52.8 fL (36.4-46.3); Red Blood Count 2.66 M/uL (4.20-5.40); White Blood Count 2.71 K/ul (4.8-10.8)
[2024-12-18 09:44] LABS: Anion Gap 5.0 (3-11); Blood Urea Nitrogen 15.0 mg/dl (6-23); Calcium 8.6 mg/dl (8.6-10.3); Carbon Dioxide 25.0 mmol/L (21-32); Chloride 109.0 mmol/L (98-107); Creatinine Clr Calc Pharmacy 68.9 ml/min; Glucose 86.0 mg/dl (70-99(Fasting)); Potassium 3.7 mmol/L (3.5-5.1); Sodium 139.0 mmol/L (136-145)
[2024-12-18 11:00] VITALS: BP 128/73; TEMP 97.7; O2SAT 96
[2024-12-18] MEDS: cefTRIAXone SODIUM 1,000 MG/50 ML BAG IV STA (11:18)
--- NOTE | 2024-12-18 12:07 | Discharge Summary ---
Discharge Summary Date of Service December 18, 2024 Principal Dx & Hospital Course #1 = Principal Diagnosis (1) ERIK (acute kidney injury): Creatinine mildly elevated on admission and has now normalized with IV fluids. Monitor urine output. Serial labs (2) Pancytopenia: Chemotherapy-induced. Hemoglobin 6.9 on December 7. 1 unit packed red blood cell transfused and hemoglobin improved to 8.7. Appreciate oncology consultation recommendations. Serial labs (3) UTI (urinary tract infection): Streptococcus isolated. Treated while hospitalized with intravenous Rocephin. She will continue amoxicillin for a few more days at discharge. (4) Hypertension: Lisinopril was held on admission and restarted today, December 18. Blood pressure is currently stable and acceptable. Will follow (5) Endometrial cancer: Currently undergoing chemotherapy for metastatic endometrial cancer. Oncology consultation and recommendations appreciated. Plan Home todayDecember 18 Admission HPI Per Admitting Provider Gabi is a 74-year-old female with a past medical history of anxiety/depression, hypertension, degenerative disc disease, hyperlipidemia, prediabetes, left pelvic mass biopsy positive for metastatic endometrial adenocarcinoma subsequently on chemo/immunosuppression/Armidex who presented to the emergency department with poor appetite, dehydration, worsening lightheadedness and dizziness for around 3 days, and was noted to be hypotensive with systolic 90s on home blood pressure check. On ER evaluation she was found to have a ERIK with baseline creatinine of approximately 0.76 acutely elevated at 1.23, clinically dry appearance, and hemoglobin 7.8 from baseline of 10.4. She reportedly has had dysuria with outpatient urine checked but no results available Gabi is seen at the bedside. She reports in the last week she has felt very tired, rundown, and progressively weaker. Worse presyncope, has not completely lost consciousness. She has had a poor appetite which may be due to chemo with her last treatment 3 weeks ago. She has no abdominal pain, nausea, vomiting, diarrhea, or constipation but just feels like she is generally not hungry. She has progressively felt weaker and more lightheaded as the week has gone. She denies fever and chills. She has had some slight discomfort/pain at the end of voiding, and has a indwelling ureteral stent due to obstructive hydronephrosis from her cancer. She had an outpatient UA which was reportedly inconclusive, was going to have a redraw done but has not yet gotten around to this. She denies flank pain/flank tenderness. No chest pain or chest pressure No shortness of breath No palpitations. She has not noticed any bleeding. Specifically denies nosebleeds, hematochezia, melena, hematemesis,/nuisance bleeding. Medical History: Reviewed Medications: Reviewed Surgical History: Reviewed Family history: Reviewed Allergies: Reviewed Social History: No tobacco/etoh Code Status:full Discharge Exam General-alert and oriented x3, no fever, no chills HEENT-head atraumatic and normocephalic, pupils equal and reactive to light, extraocular muscles intact Neck-no lymphadenopathy or thyromegaly, trachea midline Chest-clear to auscultation. No rales, wheezing or rhonchi Cardiac-regular rate and rhythm, normal S1 and S2 Abdomen-normal bowel sounds, no hepatosplenomegaly Extremities-no cyanosis, clubbing, or edema Neuro-cranial nerves II through XII intact, motor and sensory function within normal limits, strength symmetrical, no focal deficits Psych-normal affect, normal mood Discharge Plan Discharge Items Patient Disposition: Home - Self-Care Reason For Visit: ERIK, SUSPECTED UTI Discharge Diagnosis: Chemotherapy-induced pancytopenia, acute kidney injury, transient hypotension, hypomagnesemia, strep UTI Condition on Discharge: Good Activity: Resume your previous activity Non-emergency contact: Primary Care Provider and Oncologist Call non-emergency contact if: your symptoms worsen Follow-up/Referrals: Tristen Disla CRNP [Primary Care Provider] - Diet: Regular Addtl Attending Provider Instructions: Take amoxicillin antibiotic for 3 more days for the urinary tract infection. A prescription has been sent to your pharmacy. Pending Studies at Discharge: No Stand-Alone Forms: My [facility], Smoking Cessation Medications and DC Order Prescriptions: New amoxicillin 500 mg capsule 500 mg PO TID Qty: 10 0RF Continued multivitamin Tablet 1 tab PO QPM Patient Comments: 12/16- otc unable to verify lisinopril [Zestril] 5 mg tablet 5 mg PO QAM Qty: 90 1RF Eliquis 5 mg tablet 5 mg PO BID Qty: 60 3RF Hold Instructions: Resume on 08/11/24. You may resume at 10:00 on Tuesday atorvastatin 20 mg tablet 20 mg PO HS Qty: 90 3RF doxycycline hyclate 100 mg capsule 100 mg PO BID Qty: 14 0RF olanzapine 2.5 mg tablet 2.5 mg PO UD PRN (Reason: Nausea/chemotherapy) gabapentin 300 mg capsule 300 mg PO TID enoxaparin 60 mg/0.6 mL syringe 60 mg subcut UD PRN (Reason: Other) Rx Instructions: q12h anastrozole [Arimidex] 1 mg tablet 1 mg PO DAILY dexamethasone 4 mg Tablet 20 mg PO UD PRN (Reason: chemotherapy) Discharge Orders: Discharge Order (Routine); Ordered 12/18/24 Ordered By: Harjinder Mina Admission Data Admit Date/Time: 12/16/24 19:59 Attending Provider: Harjinder Mina Admit Provider: Reji Menendez Primary Care Provider: Tristen Disla Other Providers: Reji Menendez; Jaskaran Dumont Hospital Stay Data Consultations 12/16/24 19:02 ED Decision to Admit Stat 12/17/24 08:10 Consult Oncology Routine Pending Results Patient Have Any Pending Studies at Discharge: No Discharge Instructions Given to Patient (Per Discharging Provider) Take amoxicillin antibiotic for 3 more days for the urinary tract infection. A prescription has been sent to your pharmacy. Total Time Total Time Spent Total Time Spent (In Minutes): 50-minute Coding Level of Care Code 97203 INP/OBS DISCH >30 MIN Diagnoses ERIK (acute kidney injury) N17.9 Pancytopenia D61.818 UTI (urinary tract infection) N39.0 Hypertension I10 Endometrial cancer C54.1
[2024-12-18 12:13] VITALS: PULSE 94
== END 2024-12-18 13:08 | disposition home or self-care (01) | DRG 682 ==
LOC: ED 16:13 → SUATTDRO 19:59 → 3N 19:59 → 2N 12-17 17:40

== ENCOUNTER 2024-12-26 11:18 | Inpatient (IN) ==
[2024-12-26] MEDS: SODIUM CHLORIDE 0.9% 2,000 ML IV ONE (11:40)
[2024-12-26 11:59] LABS: Hematocrit (blood only) 28.3 % (37.0-47.0); Hemoglobin 9.8 g/dl (12.0-16.0); Immature Granulocytes # (auto) 0.01 K/uL (0.01-0.20); Immature Granulocytes % (auto) 0.3 %; Mean Corpuscular Hemoglobin 33.7 pg (25.0-34.0); Mean Corpuscular Volume 97.3 fL (80.0-100.0); Platelet Count 154 K/uL (130-400); RDW Standard Deviation 55.1 fL (36.4-46.3); Red Blood Count 2.91 M/uL (4.20-5.40); White Blood Count 3.82 K/ul (4.8-10.8)
[2024-12-26 12:17] LABS: Alanine Aminotransferase 19 U/L (7-52); Albumin Globulin Ratio 1.6 (0.9-2); Alkaline Phosphatase 62 U/L (34-104); Anion Gap 7 (3-11); Bilirubin,Total 0.7 mg/dl (0.2-1.0); Blood Urea Nitrogen 13 mg/dl (6-23); Calcium 9.8 mg/dl (8.6-10.3); Carbon Dioxide 24 mmol/L (21-32); Chloride 107 mmol/L (98-107); Globulin 2.1 gm/dl (2.5-4.0); Glucose 114 mg/dl (70-99(Fasting)); Magnesium 1.2 mg/dl (1.7-2.4); Potassium 3.5 mmol/L (3.5-5.1); Sodium 138 mmol/L (136-145); Total Protein 5.5 gm/dl (6.0-8.3)
--- NOTE | 2024-12-26 12:17 | XRay Report ---
SINGLE VIEW CHEST CLINICAL HISTORY: Sepsis FINDINGS: An AP, portable, upright chest radiograph is compared to study dated 12/16/2024 and correlate d with PET/CT dated 10/03/2024. A left subclavian central venous infusion port is unchanged in positio n. The heart is mildly enlarged noting atherosclerotic calcification of the thoracic aorta. There coa rsening of the interstitium. Scarring/atelectasis is noted at the lung bases. No airspace consolidati on or large pleural effusion is identified. No pneumothorax is seen. The skeletal structures are oste openic. The bony thorax is grossly intact. IMPRESSION: 1. Moderate cardiomegaly with coarsening of the interstitium. Correlate clinically for evidence of mi ld fluid overload/congestive change. 2. No airspace consolidation or pleural effusion is identified. ACT 112: Negative or not required by law. Electronically signed by: Dave rAriaga M.D. 12/26/2024 12:16 PM
[2024-12-26 12:28] LABS: INR 1.2 (0.9-1.1); Partial Thromboplastin Time 32 Seconds (21-31); Prothrombin Time 12.4 Seconds (9.0-12.0)
--- NOTE | 2024-12-26 13:44 | Emergency Department Note ---
Impression & Plan Acute dehydration, Hypomagnesemia, Acute hypotension, Generalized weakness, Nausea & vomiting ED Provider Note HISTORY OF PRESENT ILLNESS: Patient is a 74-year-old female presenting with hypotension. Patient reports that she has not been feeling well for the last few days. Reports that she has not really had much in terms of an appetite for at least the last 3 to 4 days. Reports she has barely been tolerating drinks or fluids. States that she had had a follow-up with her primary care provider today for her symptoms and was found to be hypotensive, prompting them to present her to the ER. Patient reports feeling very weak and rundown. Denies any fevers at home. Denies any abdominal pain. She does report she has had anywhere from 3-4 episodes of vomiting over the last few days. Denies any dysuria or hematuria. Denies any diarrhea. Reports that she just feels weak and rundown. ROS: as above PHYSICAL EXAM: Constitutional: Patient appears in no acute distress. HENT: Head: Normocephalic and atraumatic. Eyes: EOMI, PERRL Mouth/Throat: Mucous membranes dry. Neck: Trachea midline. Neck supple. Cardiovascular: Tachycardic with regular rhythm. No murmurs, rubs or gallops. Intact distal pulses. Pulmonary/Chest: No respiratory distress. Breath sounds clear and equal bilaterally. No wheezes or rales. No chest wall tenderness to palpation. Abdominal: Abdomen soft, no tenderness, rebound or guarding. Musculoskeletal: No edema, tenderness or deformity noted. Skin: Warm and dry. No rash, erythema, pallor or cyanosis Psychiatric: Appropriate mood and affect for situation. Neurological: Alert and keenly responsive. CN II-XII grossly intact, moving all extremities equally and fully. MDM: - Vitals signs showed hypotension and tachycardia. - History obtained via patient. History as above. - Chronic conditions affecting care: HLD; HTN; endometrial cancer; hx of DVT; anxiety/depression - Differential diagnoses include, but are not limited to: Dehydration; electrolyte abnormality; ACS; pneumonia; UTI; viral syndrome - Order placed for continuous cardiac monitoring. At this time, monitor showed rate of 95 bpm with normal sinus rhythm, per my interpretation. - External medical records reviewed. Primary care visit note dated from today was reviewed. Patient was seen for hospital follow-up after completing treatment for UTI. She was noted to be hypotensive at clinic and have poor oral intake. They referred the patient to the emergency department for further evaluation. -- IV access was obtained. Patient given 2 L normal saline bolus with some improvement in her blood pressure. EKG image interpreted by myself showed normal sinus rhythm. Rate 92 bpm. QT 364. No acute ischemic changes. - Laboratory workup interpreted by myself showed leukopenia (WBC 3.82); anemia (Hgb 9.8); elevated INR (1.2); normal lactate; stable electrolytes other than hypomagnesemia (Mg 1.2); normal troponin; normal procalcitonin; normal AST/ALT - Given 2g IV magnesium for electrolyte replacement - CXR image reviewed by myself is new for pneumonia, per my interpretation. - Blood cultures obtained - UA ordered. - Empiric antibiotics were not ordered, as the patient has not had any infectious symptoms and has a normal procalcitonin at this point. Do think that her hypotension is likely secondary to significant dehydration. - Discussion was had with case manager specialist about patient's case and need for admission - Hospitalist, Dr. Rodriguez, consulted for admission - [facility] ASSESSMENT AND PLAN: Diagnosis: acute dehydration; acute hypotension; hypomagnesemia; nausea and vomiting; generalized weakness Plan: admit Past Med/Surg History Problem List (Updated 12/26/24 @ 13:48 by Rachel Rmaos MD) Nausea & vomiting (Acute) Generalized weakness (Acute) Acute hypotension (Acute) Hypomagnesemia (Acute) Acute dehydration (Acute) UTI (urinary tract infection) 12/16-12/18/24 [facility] admission tx for UTI; sent home on PO abx Pancytopenia (Acute) Hypomagnesemia (Acute) Thyroid goiter Low TSH level Anxiety and depression History of pelvic mass (Acute) Hydronephrosis Cervical spondylosis DDD (degenerative disc disease) Chronic pain Cervical Spine area Simple goiter Vitamin D insufficiency Impaired glucose metabolism Hyperlipidemia LDL goal <100 Medical History Neuropathy History of recent hospitalization Hypertension Endometrial cancer (02/14/20) Thyroid goiter History of blood transfusion History of colon polyps History of COVID-19 Degeneration of cervical intervertebral disc Frequent urination Endometrial cancer History of DVT (deep vein thrombosis) Anxiety and depression Hypertension Hx of renal calculi Degenerative disc disease Bulging lumbar disc HLD (hyperlipidemia) Cardiac murmur Arthritis Multiple thyroid nodules Osteopenia Surgical History S/P cystoscopy with ureteral stent placement History of urologic surgery History of biopsy Port-A-Cath in place (08/10/24) S/P biopsy Hx of lithotripsy History of colonoscopy History of robot-assisted laparoscopic hysterectomy (03/06/20) History of tooth extraction Family History Aunt Breast cancer, Onset Age: 80 Mother Heart disease Myocardial infarction Hypertension Father No problems noted. Sister Esophageal cancer, Onset Age: 64 Sister No problems noted. Sister No problems noted. Son No problems noted. Other Diabetes No family history of adverse response to anesthesia Denies family history of Ovarian cancer Prostate cancer Lung cancer Colorectal cancer Social History Smoking Status: Never smoker Tobacco Type: Cigarettes Age Started Using Tobacco: 17; Age Quit Using Tobacco: 35; packs per day: 1; Smoking End Date: years ago; Second Hand Exposure: Yes (has as child); Do You Dip or Chew Tobacco: No; Tobacco Cessation Education Requested by Patient: No Hx Alcohol Use: Yes Alcohol type: wine Alcohol Intake Frequency: 2-4 x/Month Alcohol Intake Frequency Comment: once or twice a week Hx Substance Use: No Preferred Language: Andorran Communication Ability: Effective Visual Impairment: No Limitations Hearing Ability: Normal Medical Physicist Required: No Beliefs That Will Affect Care: None marital status: Single Current Living Situation: Alone Current Living Situation Comment: 2 story house current occupational status: retired 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 How many Children do You have: 1 Other Information That Helps Us Care for You: No Feels Safe at Home: Yes Safety Concerns: Feels Safe At This Time Childhood Exposure to Second-Hand Smoke: Yes Diet: regular Diet Comment: regular caffeine: Yes (coffee morning) during the past year weight has: remained stable Dental Care, Regularly: Yes Physical Activity Frequency: 3-4 Times per Week Seatbelt Use: always Sunscreen Use: Yes Assistive Devices: None Allergies Allergies Allergy/AdvReac Type Severity Reaction Status Date / Time No Known Allergies Allergy Verified 12/26/24 10:09 Home Meds Home Medications Medication Instructions Recorded Confirmed multivitamin 1 tab PO QPM 04/16/20 12/26/24 olanzapine 2.5 mg tablet 2.5 mg PO UD PRN 07/18/24 12/26/24 Nausea/chemotherapy anastrozole 1 mg tablet (Arimidex) 1 mg PO DAILY 11/08/24 12/26/24 gabapentin 300 mg capsule 300 mg PO TID 11/08/24 12/26/24 prochlorperazine maleate 10 mg 10 mg PO Q6H PRN Nausea 12/19/24 12/26/24 tablet (Compazine) cholecalciferol (vitamin D3) 10 0 mcg PO QPM 12/20/24 12/26/24 mcg (400 unit) capsule (Vitamin D3) dexamethasone 4 mg tablet 20 mg PO UD PRN chemotherapy 12/26/24 12/26/24 Previous Rx's Medication Instructions Recorded lisinopril 5 mg tablet (Zestril) 5 mg PO QAM #90 tabs 10/18/24 apixaban 5 mg tablet (Eliquis) 5 mg PO BID #60 tabs 11/19/24 atorvastatin 20 mg tablet 20 mg PO HS #90 tabs 12/03/24 ondansetron 8 mg disintegrating 8 mg PO Q8H PRN nausea and 12/24/24 tablet vomiting #30 tabs Results & Data (ED) Vital Signs Vital Signs - 24 hr 12/26/24 11:21 12/26/24 11:40 12/26/24 11:40 Temperature 36.3 C L Temperature Source Temporal Artery Scan Pulse Rate 93 H Pulse Rate [Right Finger] 91 H Pulse Rhythm [Right Finger] Regular Pulse Strength [Right Finger] Normal Respiratory Rate 18 24 Respiratory Effort / Characteristics Non-Labored Spontaneous Non-Labored Respiratory Depth Normal Normal Respiratory Pattern Regular Regular Blood Pressure 75/47 L Blood Pressure [Right Arm] 120/53 L Blood Pressure Mean 56 Blood Pressure Mean [Right Arm] 75 Blood Pressure Position [Right Arm] Lying Pulse Oximetry 98 95 95 Oxygen Delivery Method Room Air Room Air Room Air Sepsis Recent Fever Within 48 Hours No Sepsis New/Unexplained Change in Mental Status N/A Sepsis Action Taken by Nursing No Action Required 12/26/24 11:46 12/26/24 13:19 Temperature Temperature Source Pulse Rate 88 Pulse Rate [Right Finger] 95 H Pulse Rhythm [Right Finger] Regular Pulse Strength [Right Finger] Normal Respiratory Rate 20 Respiratory Effort / Characteristics Non-Labored Respiratory Depth Normal Respiratory Pattern Regular Blood Pressure Blood Pressure [Right Arm] 98/61 L Blood Pressure Mean Blood Pressure Mean [Right Arm] 73 Blood Pressure Position [Right Arm] Lying Pulse Oximetry 91 Oxygen Delivery Method Room Air Sepsis Recent Fever Within 48 Hours Sepsis New/Unexplained Change in Mental Status Sepsis Action Taken by Nursing Laboratory Data 12/26/24 11:37 12/26/24 11:37 Lab Results 12/26/24 12/26/24 12/26/24 Range/Units 11:37 11:38 13:55 WBC 3.82 L (4.8-10.8) K/ul RBC 2.91 L (4.20-5.40) M/uL Hgb 9.8 L (12.0-16.0) g/dl Hct 28.3 L (37.0-47.0) % MCV 97.3 (80.0-100.0) fL MCH 33.7 (25.0-34.0) pg MCHC 34.6 (32.0-36.0) g/dL RDW Std Deviation 55.1 H (36.4-46.3) fL RDW Coeff of Nico 15.5 H (11.5-14.5) % Plt Count 154 (130-400) K/uL MPV 10.3 (9.4-12.4) fL Immature Gran % (Auto) 0.3 % Neut % (Auto) 35.8 % Lymph % (Auto) 39.0 % [place] % (Auto) 21.5 % Eos % (Auto) 2.6 % Baso % (Auto) 0.8 % Neut # (Auto) 1.37 L (1.40-6.50) K/uL Lymph # (Auto) 1.49 (1.20-3.40) K/uL [place] # (Auto) 0.82 H (0.11-0.59) K/uL Eos # (Auto) 0.10 (0.00-0.50) K/uL Baso # (Auto) 0.03 (0.00-0.20) K/uL Immature Gran # (Auto) 0.01 (0.01-0.20) K/uL PT 12.4 H (9.0-12.0) Seconds INR 1.2 H (0.9-1.1) APTT 32 H (21-31) Seconds PTT Ratio 1.2 Sodium 138 (136-145) mmol/L Potassium 3.5 (3.5-5.1) mmol/L Chloride 107 (98-107) mmol/L Carbon Dioxide 24 (21-32) mmol/L Anion Gap 7 (3-11) BUN 13 (6-23) mg/dl Creatinine 1.17 (0.6-1.2) mg/dl Est Cr Clr Drug Dosing Not Reportable eGFR 48.66 BUN/Creatinine Ratio 11.1 (10-20) Glucose 114 H (70-99(Fasting)) mg/dl Lactate 1.0 (0.4-2.0) mmol/L Calcium 9.8 (8.6-10.3) mg/dl Magnesium 1.2 L (1.7-2.4) mg/dl Total Bilirubin 0.7 (0.2-1.0) mg/dl AST 24 (13-39) U/L ALT 19 (7-52) U/L Alkaline Phosphatase 62 (34-104) U/L Troponin I High Sens 8.8 (0-14) pg/ml Total Protein 5.5 L (6.0-8.3) gm/dl Albumin 3.4 (3.4-5.0) gm/dl Globulin 2.1 L (2.5-4.0) gm/dl Albumin/Globulin Ratio 1.6 (0.9-2) Procalcitonin 0.05 (0-0.5) ng/ml Urine Comment Administered Medications Magnesium Sulfate/Dextrose (Magnesium Sulfate / D5w) 1 gm in 100 mls @ 100 mls/hr IV Q1H JEANNA Stop: 12/26/24 15:44 Last Admin: 12/26/24 13:53 Dose: 100 mls/hr Documented By: NORBERTO Discontinued Medications Sodium Chloride (Nss) 2,000 mls @ 999 mls/hr IV .Q2H1M ONE Stop: 12/26/24 13:26 Last Infusion: 12/26/24 13:26 Dose: Infused Documented By: Admin: 12/26/24 11:40 Dose: 999 mls/hr Documented By: JARETT Imaging Data Radiologist's Impression: Chest X-Ray 12/26/24 11:26 SINGLE VIEW CHEST CLINICAL HISTORY: Sepsis FINDINGS: An AP, portable, upright chest radiograph is compared to study dated 12/16/2024 and correlated with PET/CT dated 10/03/2024. A left subclavian central venous infusion port is unchanged in position. The heart is mildly enlarged noting atherosclerotic calcification of the thoracic aorta. There coarsening of the interstitium. Scarring/atelectasis is noted at the lung bases. No airspace consolidation or large pleural effusion is identified. No pneumothorax is seen. The skeletal structures are osteopenic. The bony thorax is grossly intact. IMPRESSION: 1. Moderate cardiomegaly with coarsening of the interstitium. Correlate clinically for evidence of mild fluid overload/congestive change. 2. No airspace consolidation or pleural effusion is identified. ACT 112: Negative or not required by law. Electronically signed by: Dave Arriaga M.D. 12/26/2024 12:16 PM Discharge Plan Visit Data Chief Complaint: Weakness Stated Complaint: NAUSEA,WEAKNESS,LITTLE APPETITE ED Provider: Rachel Ramos Discharge Problem: Acute dehydration, Hypomagnesemia, Acute hypotension, Generalized weakness, Nausea & vomiting Condition: Fair Forms Stand Alone Forms: My [facility] Prescriptions Prescriptions: No Action multivitamin Tablet 1 tab PO QPM Patient Comments: 12/16- otc unable to verify lisinopril [Zestril] 5 mg tablet 5 mg PO QAM Qty: 90 1RF Eliquis 5 mg tablet 5 mg PO BID Qty: 60 3RF Hold Instructions: Resume on 08/11/24. You may resume at 10:00 on Tuesday atorvastatin 20 mg tablet 20 mg PO HS Qty: 90 3RF ondansetron 8 mg tablet,disintegrating 8 mg PO Q8H PRN (Reason: nausea and vomiting) Qty: 30 0RF olanzapine 2.5 mg tablet 2.5 mg PO UD PRN (Reason: Nausea/chemotherapy) gabapentin 300 mg capsule 300 mg PO TID prochlorperazine maleate [Compazine] 10 mg tablet 10 mg PO Q6H PRN (Reason: Nausea) anastrozole [Arimidex] 1 mg tablet 1 mg PO DAILY dexamethasone 4 mg tablet 20 mg PO UD PRN (Reason: chemotherapy) cholecalciferol (vitamin D3) [Vitamin D3] 10 mcg (400 unit) Capsule 0 mcg PO QPM Patient Comments: 12/26- OTC unknown dose Referrals Referrals: Tristen Disla CRNP [Primary Care Provider] -
[2024-12-26] MEDS: MAGNESIUM SULFATE / D5W 1 GM/100 ML BAG IV SCH ×2 (13:53→16:00)
[2024-12-26 14:17] LABS: Appearance Urine Clear (Clear); Bacteria Urine Automated None Seen (None Seen); Epithelial Cell Urine Auto 0-2 /hpf (0-2); Glucose Urine UA Negative (Negative); RBC Urine Automated 0-2 /hpf (0-2); WBC Urine Automated 21-50 /hpf (0-5)
--- NOTE | 2024-12-26 15:01 | History & Physical Report ---
Date of Service December 26, 2024 Assessment & Plan (1) Hypotension: (2) Nausea & vomiting: (3) Generalized weakness: (4) Hypomagnesemia: (5) Neuropathy: (6) Endometrial cancer: (7) Adrenal insufficiency due to cancer therapy: (8) History of DVT (deep vein thrombosis): (9) S/P ureteral stent placement: Plan Pleasant 74yo female with recurrent endometrial cancer discovered in 05/2024 , followed by Dr. Jaskaran Dumont and also by G[employer] PIT WORKER-oncology at [facility] - s/p cycle 6 of carboplatin, paclitaxel and pembrolizumab on 11/22/2024. Initial endometrial cancer diagnosis was in 2019 when she underwent robotically- assisted laparoscopic hysterectomy and BSO. She subsequently underwent radiation therapy but did not receive chemotherapy. Recent hospital stay at [facility] from 12/16 to 12/18 due to ERIK, chemotherapy- induced pancytopenia, and strep UTI. Upon return home she was still feeling weak and had ongoing poor appetite. In addition to poor appetite and inadequate liquid intake she has had nausea, some vomiting, dizziness, weakness, and feeling overall poorly. Saw her PCP today and her systolic BP was in the 80s; she was referred to the ER for evaluation. #hypotension - likely due to severe volume contraction in the setting of suspected adrenal insufficiency - -BPs improved s/p multiple fluid boluses in the ER although BPs still not back to normal -will give additional fluid bolus followed by IV hydrocortisone -random cortisol level is <1 highly suggestive of adrenal insufficiency -pembrolizumab is known to cause adrenal insufficiency / immune-mediated hypophysitis -ACTH level sent before first dose of hydrocortisone was given -to my knowledge she has not been on steroid therapy in the last several weeks -given how low the cortisol level is will not perform cosyntropin stim test; further, pt's hypotension/nausea/failure to thrive/nonspecific GI symptoms/etc are c/w adrenal insufficiency -give 100mg of hydrocortisone now, followed by hydrocortisone 50mg q8h - then wean over several days to maintenance of 15mg hydrocortisone AM and 5mg in the afternoon -HOLDING lisinopril #severe hypomagnesemia - -likely due to combination of very poor dietary intake as well as vomiting/diarrhea -level 1.2 today - give 4 grams mag sulfate IV, repeat mag level am tomorrow #h/o LLE DVT - -has been treated with Eliquis since diagnosis in 06/2024 -Eliquis on hold last 3 days in preparation for cystoscopy with ureteral stent exchange -cont to hold as Dr Alicea is hoping to exchange the stent tomorrow #h/o left-sided ureteral stent - -placed initially 05/2024 due to left-sided hydronephrosis - thought 2nd to external compression of left ureter by her pelvic mass (endometrial cancer) -stent then exchanged in early September 2024 -I sent a message to Dr Alicea re: pt's hospitalization; will keep NPO after MN in the event she is able to have stent exchange tomorrow -of note - Cr today is mildly above baseline at 1.17; most of this, however, is likely pre-renal from her hypotension/volume contraction #recurrent stage 4 endometrial cancer - ER+ -last cycle of chemo was 11/22/24 (carboplatin, paclitaxel, and pembrolizumab) -uncertain of timing of re-imaging by heme/onc -recent chemo-induced pancytopenia -platelets have normalized -WBCs slowly improving; minimal amount of neutropenia today (1300s ANC today) -H/H stable -recent B12, folate, Fe studies stable -repeat CBC w/ diff in am for stability -cont anastrozole daily #neuropathy - -chemo induced (presumed) -cont gabapentin 300mg TID -could consider dose increase OR adding cymbalta #hyperlipidemia - -check a CPK due to weakness -cont statin #DVT Proph - -hold Eliquis in the setting of needed ureteral stent exchange by Dr Alicea pt's sister updated at bedside during the admission's process History of Present Illness Chief Complaint: weakness, dizziness, nausea, dehydration Primary Care Provider: SEBAS Joiner Pleasant 74yo female with recurrent endometrial cancer discovered in 05/2024 , followed by Dr. Jaskaran Dumont and also by GAS PIT WORKER-oncology at [facility] - s/p cycle 6 of carboplatin, paclitaxel and pembrolizumab on 11/22/2024. Initial endometrial cancer diagnosis was in 2019 when she underwent robotically- assisted laparoscopic hysterectomy and BSO. She subsequently underwent r adiation therapy but did not receive chemotherapy. Recent hospital stay at [facility] from 12/16 to 12/18 due to ERIK, chemotherapy- induced pancytopenia, and strep UTI. Upon return home she was still feeling weak and had ongoing poor appetite. Patient states that at times she feels hungry but as soon as she tries to eat she either feels full or has nausea. Drinking less than 30 ounces of fluid/day and eating very little. There have been episodes of vomiting. Denies any abdominal pain. Denies fevers or chills. Denies diarrhea. Has had some mild edema of both legs. Reports dizziness with standing over the last 1-2 weeks. She has generalized weakness. She reports that she was supposed to have ureteral stent exchange tomorrow by Dr Alicea from [facility]. She has been holding her Eliquis for the last 3 days in preparation for this procedure. Today she went and saw her PCP for hospital follow-up from the 12/16-12/18 hospitalization. BP was 83/58. Given her BP and ongoing symptoms she was advised to come to the ER for evaluation. Allergies Allergy/AdvReac Type Severity Reaction Status Date / Time No Known Allergies Allergy Verified 12/26/24 10:09 Home Medications Medication Instructions Recorded Confirmed Type multivitamin 1 tab PO QPM 04/16/20 12/26/24 History olanzapine 2.5 mg tablet 2.5 mg PO UD PRN 07/18/24 12/26/24 History Nausea/chemotherapy lisinopril 5 mg tablet (Zestril) 5 mg PO QAM #90 tabs 10/18/24 12/26/24 Rx anastrozole 1 mg tablet (Arimidex) 1 mg PO DAILY 11/08/24 12/26/24 History gabapentin 300 mg capsule 300 mg PO TID 11/08/24 12/26/24 History apixaban 5 mg tablet (Eliquis) 5 mg PO BID #60 tabs 11/19/24 12/26/24 Rx atorvastatin 20 mg tablet 20 mg PO HS #90 tabs 12/03/24 12/26/24 Rx prochlorperazine maleate 10 mg 10 mg PO Q6H PRN Nausea 12/19/24 12/26/24 History tablet (Compazine) cholecalciferol (vitamin D3) 10 0 mcg PO QPM 12/20/24 12/26/24 History mcg (400 unit) capsule (Vitamin D3) ondansetron 8 mg disintegrating 8 mg PO Q8H PRN nausea and 12/24/24 12/26/24 Rx tablet vomiting #30 tabs dexamethasone 4 mg tablet 20 mg PO UD PRN chemotherapy 12/26/24 12/26/24 History Past Med/Surg History Problem List (Updated 12/26/24 @ 21:48 by Marco Rodriguez MD) S/P ureteral stent placement Adrenal insufficiency due to cancer therapy Hypotension Nausea & vomiting (Acute) Generalized weakness (Acute) Acute hypotension (Acute) Hypomagnesemia (Acute) Acute dehydration (Acute) UTI (urinary tract infection) 12/16-12/18/24 [facility] admission tx for UTI; sent home on PO abx Pancytopenia (Acute) Hypomagnesemia (Acute) Thyroid goiter Low TSH level Anxiety and depression History of pelvic mass (Acute) Hydronephrosis Cervical spondylosis DDD (degenerative disc disease) Chronic pain Cervical Spine area Simple goiter Vitamin D insufficiency Impaired glucose metabolism Hyperlipidemia LDL goal <100 Medical History Neuropathy History of recent hospitalization [facility] 12/16-12/18/24; pt c/o presyncopal episodes and hypotension; finished chemo tx 3 weeks prior. dx: ERIK (normalized with IVF), pancytopenia (chemo-induced; transfused 1 unit PRBCs 12/17/24 with improvement of Hgb), UTI (D/C on Amoxicillin) Hypertension Endometrial cancer (02/14/20) Thyroid goiter "bloodwork normal, also recent US of thyroid" History of blood transfusion 1 unit PRBCs 12/17/24 [facility] (pancytopenia 2/2 chemo tx and metastatic ca) History of colon polyps History of COVID-19 ~2021 Degeneration of cervical intervertebral disc No recent problems Frequent urination follows with urology Endometrial cancer intitially dx 02/2020 (surgery, XRT) and recurrence (metastatic) dx 06/2024: tx with concurrent chemo & immunotherapy; finished 11/2024 History of DVT (deep vein thrombosis) 06/2024 > diagnosed with a pelvic mass and iliac DVT. Placed on Eliquis after being hospitalized. Patient states she stopped her Eliquis 2 days prior to having her abdominal mass biopsy. She noticed some increased pain and swelling in the left leg and saw her PCP. An ultrasound was ordered which revealed long segment DVT of the common femoral vein ([facility] ER) Anxiety and depression situational Hypertension Hx of renal calculi Per records, patient denies Degenerative disc disease Bulging lumbar disc HLD (hyperlipidemia) Cardiac murmur Reported per records; [facility] PCP visit 07/09/24: "no murmur" Arthritis Multiple thyroid nodules Osteopenia Surgical History S/P cystoscopy with ureteral stent placement multiple; most recent 09/20/2024: MAC without issue History of urologic surgery insertion of ureteral stent 06/2024 History of biopsy thyroid -benign. Port-A-Cath in place (08/10/24) Insertion of Access Port with Fluoroscopy into Left Subclavian S/P biopsy 06/26/24 - abdominal/pelvis biopsy Hx of lithotripsy Per records, patient unaware History of colonoscopy History of robot-assisted laparoscopic hysterectomy (03/06/20) + BSO History of tooth extraction Age 17 - [place] [facility] Family History Aunt , Passed age 88 of natural causes Breast cancer, Onset Age: 80 Mother , Passed age 69 of [place] Heart disease Myocardial infarction Hypertension Father , Passed age 89 of natural causes No problems noted. Sister Esophageal cancer, Onset Age: 64 Had treatment, doing well now Sister No problems noted. Sister No problems noted. Son No problems noted. Other Diabetes No family history of adverse response to anesthesia Denies family history of Ovarian cancer Prostate cancer Lung cancer Colorectal cancer Social History (Updated 12/26/24 @ 21:43 by Marco Rodriguez MD) Smoking Status: Former smoker Age Started Using Tobacco: 17; Age Quit Using Tobacco: 35; packs per day: 1; Second Hand Exposure: Yes (has as child); Hx Alcohol Use: Yes Alcohol type: beer and wine Alcohol Intake Frequency: Monthly or Less Alcohol Intake Frequency Comment: once or twice a week Hx Substance Use: No Preferred Language: Nepali Communication Ability: Effective Visual Impairment: No Limitations Hearing Ability: Normal State Trooper Required: No Beliefs That Will Affect Care: None marital status: Single Current Living Situation: Alone Current Living Situation Comment: 2 story house current occupational status: retired 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 How many Children do You have: 1 Other Information That Helps Us Care for You: No Feels Safe at Home: Yes Safety Concerns: Feels Safe At This Time Childhood Exposure to Second-Hand Smoke: Yes Diet: regular Diet Comment: regular caffeine: Yes (coffee morning) during the past year weight has: remained stable Dental Care, Regularly: Yes Physical Activity Frequency: 3-4 Times per Week Seatbelt Use: always Sunscreen Use: Yes Assistive Devices: Cane and Glasses Review of Systems Review of Systems: gen - no fevers or chills; some weight loss; severe loss of appetite eyes - denies any visual changes HENT - denies sores in mouth, denies sore throat, denies dysphagia; no ear pain CV - no chest pain pulm - no dyspnea or SANDY; no cough GI - nausea, vomiting; no abdominal pain; no blood per rectum - no UTI symptoms endo - no diabetes neuro - chronic numbness of b/l feet; some dizziness/lightheadedness skin - no rash musculo - no joint pains but generalized weakness Physical Exam Physical Exam: gen - looks weak/tired, pleasant, nontoxic eyes - PERRL HENT - no thrush, MM dry, no lesions neck - no JVD, no lymph nodes heart - tachy, s1 s2, no murmur lungs - CTA b/l abd - soft NT ND BS+; no HSM ext - trace edema b/l legs, pulses b/l feet 2+ skin - no rash neuro - strength 5/5 x 4 exts, DTRs 2+ b/l psych - a/o x 3 Results & Data Results & Data Vital Signs (Past 12 Hours) Vital Signs Temp Pulse Pulse Resp BP BP Pulse Ox 12/26/24 13:19 95 H 20 98/61 L 91 12/26/24 11:46 88 12/26/24 11:40 95 12/26/24 11:40 91 H 24 120/53 L 95 12/26/24 11:21 36.3 C L 93 H 18 75/47 L 98 O2 Del Method 12/26/24 13:19 Room Air 12/26/24 11:46 12/26/24 11:40 Room Air 12/26/24 11:40 Room Air 12/26/24 11:21 Room Air Laboratory Results Laboratory Results - last 24 hr 12/26/24 12/26/24 12/26/24 11:37 11:38 13:55 WBC 3.82 L RBC 2.91 L Hgb 9.8 L Hct 28.3 L MCV 97.3 MCH 33.7 MCHC 34.6 RDW Std Deviation 55.1 H RDW Coeff of Nico 15.5 H Plt Count 154 MPV 10.3 Immature Gran % (Auto) 0.3 Neut % (Auto) 35.8 Lymph % (Auto) 39.0 Wayne % (Auto) 21.5 Eos % (Auto) 2.6 Baso % (Auto) 0.8 Neut # (Auto) 1.37 L Lymph # (Auto) 1.49 Wayne # (Auto) 0.82 H Eos # (Auto) 0.10 Baso # (Auto) 0.03 Immature Gran # (Auto) 0.01 PT 12.4 H INR 1.2 H APTT 32 H PTT Ratio 1.2 Sodium 138 Potassium 3.5 Chloride 107 Carbon Dioxide 24 Anion Gap 7 BUN 13 Creatinine 1.17 Est Cr Clr Drug Dosing Not Reportable eGFR 48.66 BUN/Creatinine Ratio 11.1 Glucose 114 H Lactate 1.0 Calcium 9.8 Magnesium 1.2 L Total Bilirubin 0.7 AST 24 ALT 19 Alkaline Phosphatase 62 Troponin I High Sens 8.8 Total Protein 5.5 L Albumin 3.4 Globulin 2.1 L Albumin/Globulin Ratio 1.6 Procalcitonin 0.05 Random Cortisol 0.44 ACTH Urine Color Yellow Urine Appearance Clear Urine pH 7.0 Ur Specific Berino 1.006 Urine Protein 2+ H Urine Glucose (UA) Negative Urine Ketones Negative Urine Blood 2+ H Urine Nitrite Negative Urine Bilirubin Negative Urine Urobilinogen Negative Ur Leukocyte Esterase 3+ H Urine WBC (Auto) 21-50 H Urine RBC (Auto) 0-2 U Hyaline Cast (Auto) 3-5 H U Epithel Cells (Auto) 0-2 Urine Bacteria (Auto) None Seen 12/26/24 16:12 ACTH Pending Diagnostic Findings Chest X-Ray 12/26/24 11:26 SINGLE VIEW CHEST CLINICAL HISTORY: Sepsis FINDINGS: An AP, portable, upright chest radiograph is compared to study dated 12/16/2024 and correlated with PET/CT dated 10/03/2024. A left subclavian central venous infusion port is unchanged in position. The heart is mildly enlarged noting atherosclerotic calcification of the thoracic aorta. There coarsening of the interstitium. Scarring/atelectasis is noted at the lung bases. No airspace consolidation or large pleural effusion is identified. No pneumothorax is seen. The skeletal structures are osteopenic. The bony thorax is grossly intact. IMPRESSION: 1. Moderate cardiomegaly with coarsening of the interstitium. Correlate clinically for evidence of mild fluid overload/congestive change. 2. No airspace consolidation or pleural effusion is identified. ACT 112: Negative or not required by law. Electronically signed by: Dave Arriaga M.D. 12/26/2024 12:16 PM Code Status & VTE Plan Code Status full code PG Care Time/CCT Total # of Minutes Spent Total Time Spent with Patient: Total time spent is greater than 50% in coordination of care (as documented) at patient's floor/unit and/or counseling patient: Coding Level of Care Code 17169 INT INP/OBS CARE 3/75MIN Diagnoses Hypotension I95.9 Nausea & vomiting R11.2 Generalized weakness R53.1 Hypomagnesemia E83.42 Neuropathy G62.9 Endometrial cancer C54.1 Adrenal insufficiency due to cancer therapy E27.3 History of DVT (deep vein thrombosis) Z86.718 S/P ureteral stent placement Z96.0
[2024-12-26] MEDS: SODIUM CHLORIDE 0.9% 1,000 ML IV ONE (16:00)
[2024-12-26] MEDS: HYDROCORTISONE SOD SUCCINATE 100 MG/2 ML VIAL IV STA (16:30)
[2024-12-26] MEDS ORDERED: ACETAMINOPHEN 325 MG TAB PO PRN (17:15)
[2024-12-26] MEDS ORDERED: MELATONIN 3 MG TAB PO PRN (17:15)
[2024-12-26] MEDS: NSS + 20MEQ KCL 20 MEQ/1,000 ML BAG IV SCH (17:42)
[2024-12-26] MEDS: CHOLECALCIFEROL 25 MCG (1000 UNITS) TAB PO SCH (20:18)
[2024-12-26] MEDS: GABAPENTIN 300 MG CAP PO SCH (20:19)
[2024-12-26] MEDS: ATORVASTATIN 20 MG TAB PO SCH (20:19)
[2024-12-27] MEDS: HYDROCORTISONE SOD 50 MG in SYRINGE 0 ML IV SCH (00:03)
[2024-12-27 06:37] LABS: Hematocrit (blood only) 26.1 % (37.0-47.0); Hemoglobin 8.8 g/dl (12.0-16.0); Immature Granulocytes # (auto) 0.01 K/uL (0.01-0.20); Immature Granulocytes % (auto) 0.6 %; Mean Corpuscular Hemoglobin 32.7 pg (25.0-34.0); Mean Corpuscular Volume 97.0 fL (80.0-100.0); Platelet Count 155 K/uL (130-400); RDW Standard Deviation 53.4 fL (36.4-46.3); Red Blood Count 2.69 M/uL (4.20-5.40); White Blood Count 1.65 K/ul (4.8-10.8)
[2024-12-27 07:15] LABS: Anion Gap 6.0 (3-11); Blood Urea Nitrogen 13.0 mg/dl (6-23); Calcium 8.6 mg/dl (8.6-10.3); Carbon Dioxide 20.0 mmol/L (21-32); Chloride 114.0 mmol/L (98-107); Creatine Kinase 43.0 U/L (26-192); Creatinine Clr Calc Pharmacy 65.1 ml/min; Glucose 148.0 mg/dl (70-99(Fasting)); Magnesium 1.7 mg/dl (1.7-2.4); Potassium 4.2 mmol/L (3.5-5.1); Sodium 140.0 mmol/L (136-145)
[2024-12-27] MEDS: ANASTROZOLE 1 MG TAB PO SCH (08:28)
--- NOTE | 2024-12-27 08:34 | Urology Progress Note ---
Date of Service December 27, 2024 Assessment & Plan (1) S/P ureteral stent placement: Plan: I had a discussion with the patient as well as with anesthesia regarding to proceed to surgery today. Since this adrenal insufficiency is a new finding and may not yet be at stable/maintenance levels of steroid supplementation, we will hold off surgery for now. Ureteral stent should be still providing adequate drainage. We will plan to reschedule this in the next couple of weeks once she is out of the hospital stable. From a urology perspective, it is okay for her to have a diet at this point as we will not be proceeding to surgery for now. Admission and Anticipated Discharge Date Admission Date: December 26, 2024 Subjective 74-year-old female by urology for hydronephrosis thought to be related to metastatic malignancy. She has been managed with chronic indwelling stents. Initially was scheduled for ureteroscopy and possible stent removal on 12/27/2024, however was admitted with concern for adrenal insufficiency. This morning she is feeling slightly improved, however still has low appetite and feels like she has some lower extremity weakness. Results & Data Vital Signs (Past 12 Hours) Vital Signs Temp Pulse Pulse Resp BP BP Pulse Ox 12/27/24 07:33 36.6 C 100 H 23 145/75 H 96 12/27/24 02:45 36.5 C 96 H 19 130/61 95 12/26/24 23:02 36.6 C 97 H 18 126/70 92 12/26/24 22:00 95 H O2 Del Method 12/27/24 07:33 Room Air 12/27/24 02:45 Room Air 12/26/24 23:02 Room Air 12/26/24 22:00 PG Care Time/CCT Total # of Minutes Spent Total Time Spent with Patient: Total time spent is greater than 50% in coordination of care (as documented) at patient's floor/unit and/or counseling patient: Coding Level of Care Code 12412 SUB INP/OBS CARE 07/07MIN Diagnoses S/P ureteral stent placement Z96.0
--- NOTE | 2024-12-27 08:59 | Oncology Consultation ---
Date of Consultation December 27, 2024 Assessment & Plan (1) Pancytopenia: Most likely long-term myelosuppression because of chemotherapy. Will recommend will filgrastim 480 mcg subcu for 3 days to shorten the duration of neutropenia. Continue antibiotics for coverage of sepsis. Treatment for endometrial cancer will continue outpatient once the patient is discharged. Will most likely omit immunotherapy in forward given the adrenal insufficiency and possible endocrine dysfunction. Will most likely continue anastrozole as her cancer was ER positive but that we will resume on an outpatient basis. Plan Thank you for this interesting oncological consult. A total of 60 minutes was spent in counseling, coronation care, review of prior records. History of Present Illness Reason for Consultation: endometrial cancer chemotherapy induced leukopenia/pancytopenia Attending Physician: Marco Rodriguez MD History of Present Illness Patient is a very pleasant 73-year-old woman who is being followed by my colleagues from [facility], has a history of endometrial cancer. The patient underwent robotic assisted laparoscopic hysterectomy, bilateral salpingo-oophorectomy as a part of surgical staging in February 2020. Subsequently she received intracavitary radiation therapy. She did not receive any chemotherapy at that point. she had a CT of the abdomen pelvis performed on 06/11/2024 which revealed 3 x 4 x 6 cm pelvic mass which was biopsied today. Medical oncology has been consulted to assist in management of this patient with history of endometrial cancer, with possible pelvic recurrence. The CT scan from June 11, 2024 also revealed DVT in the left external iliac vein. CT abdomen pelvis, 06/11/2024: IMPRESSION: 1. Roughly 3 x 4 x 6 cm soft tissue mass in the left pelvis at the level of the sacroiliac joint, encasing the external iliac artery and vein, concerning for metastasis in this patient with history of endometrial cancer. 2. Suggestion of a short segment nonocclusive DVT in the left external iliac vein at the level of the mass. 3. Moderate left-sided hydroureteronephrosis. The mass either extrinsically compresses or invades the left ureter. CT-guided biopsy, 06/26/2024: FINAL DIAGNOSIS Pelvic mass, CT-guided core biopsy: - Adenocarcinoma consistent with metastatic endometrial primary. - See comment. Comment: Unfortunately the vast majority of the specimen consists of necrotic tumor and fibrosis. There is approximately 60 malignant viable-appearing cells present within the specimen. This is probably insufficient for most large ancillary testing panels PET CT scan; 08/09/2024: IMPRESSION: 1. Intensely hypermetabolic left pelvic mass consistent with malignancy. 2. Hypermetabolic left lower lobe pulmonary nodule consistent with malignancy. Differential diagnosis includes metastatic disease and primary lung cancer. 3. No other suspicious hypermetabolism seen. PET CT scan, 10/03/2024 IMPRESSION: 1. Findings compatible with possible partial treatment response. 2. The previously noted hypermetabolic 11 mm left lower lobe pulmonary nodule is now subcentimeter in size without appreciable increased FDG uptake. 3. The large left iliac chain node has also decreased in size and FDG uptake. 4. There is no evidence of new or progressive disease. 5. Unchanged mild left-sided hydroureteronephrosis with ureteral stent in place. Current treatment: Recommended carboplatin paclitaxel pembrolizumab Palliative systemic therapy for recurrent endometrial cancer Carboplatin paclitaxel pembrolizumab, cycle 1 day 1: 08/02/2024 Carboplatin paclitaxel pembrolizumab, cycle 2, day 1: 08/23/2024 Carboplatin paclitaxel pembrolizumab, cycle 3-day 1: 09/13/2024 Carboplatin paclitaxel pembrolizumab, cycle 4-day 1: 10/03/2024 Carboplatin paclitaxel pembrolizumab, cycle 5-day 1: 11/01/2024 Carboplatin paclitaxel pembrolizumab, cycle 6 day 1: 11/22/2024 patient has been off therapy for the last 6 weeks however has been admitted with weakness, fatigue, tiredness. Has been diagnosed with adrenal insufficiency however was also found to be leukopenic despite being off chemotherapy for about 6 weeks. Hematology has been consulted to assist in management of this patient who was previously on chemotherapy, is currently leukopenic. Allergies Allergy/AdvReac Type Severity Reaction Status Date / Time No Known Allergies Allergy Verified 12/26/24 10:09 Home Medications Medication Instructions Recorded Confirmed Type multivitamin 1 tab PO QPM 04/16/20 12/26/24 History olanzapine 2.5 mg tablet 2.5 mg PO UD PRN 07/18/24 12/26/24 History Nausea/chemotherapy lisinopril 5 mg tablet (Zestril) 5 mg PO QAM #90 tabs 10/18/24 12/26/24 Rx anastrozole 1 mg tablet (Arimidex) 1 mg PO DAILY 11/08/24 12/26/24 History gabapentin 300 mg capsule 300 mg PO TID 11/08/24 12/26/24 History apixaban 5 mg tablet (Eliquis) 5 mg PO BID #60 tabs 11/19/24 12/26/24 Rx atorvastatin 20 mg tablet 20 mg PO HS #90 tabs 12/03/24 12/26/24 Rx prochlorperazine maleate 10 mg 10 mg PO Q6H PRN Nausea 12/19/24 12/26/24 History tablet (Compazine) cholecalciferol (vitamin D3) 10 0 mcg PO QPM 12/20/24 12/26/24 History mcg (400 unit) capsule (Vitamin D3) ondansetron 8 mg disintegrating 8 mg PO Q8H PRN nausea and 12/24/24 12/26/24 Rx tablet vomiting #30 tabs dexamethasone 4 mg tablet 20 mg PO UD PRN chemotherapy 12/26/24 12/26/24 History Patient History Medical History Neuropathy History of recent hospitalization [facility] 12/16-12/18/24; pt c/o presyncopal episodes and hypotension; finished chemo tx 3 weeks prior. dx: ERIK (normalized with IVF), pancytopenia (chemo-induced; transfused 1 unit PRBCs 12/17/24 with improvement of Hgb), UTI (D/C on Amoxicillin) Hypertension Endometrial cancer (02/14/20) Thyroid goiter "bloodwork normal, also recent US of thyroid" History of blood transfusion 1 unit PRBCs 12/17/24 [facility] (pancytopenia 2/2 chemo tx and metastatic ca) History of colon polyps History of COVID-19 ~2021 Degeneration of cervical intervertebral disc No recent problems Frequent urination follows with urology Endometrial cancer intitially dx 02/2020 (surgery, XRT) and recurrence (metastatic) dx 06/2024: tx with concurrent chemo & immunotherapy; finished 11/2024 History of DVT (deep vein thrombosis) 06/2024 > diagnosed with a pelvic mass and iliac DVT. Placed on Eliquis after being hospitalized. Patient states she stopped her Eliquis 2 days prior to having her abdominal mass biopsy. She noticed some increased pain and swelling in the left leg and saw her PCP. An ultrasound was ordered which revealed long segment DVT of the common femoral vein ([facility]) Anxiety and depression situational Hypertension Hx of renal calculi Per records, patient denies Degenerative disc disease Bulging lumbar disc HLD (hyperlipidemia) Cardiac murmur Reported per records; [facility] PCP visit 07/09/24: "no murmur" Arthritis Multiple thyroid nodules Osteopenia Surgical History S/P cystoscopy with ureteral stent placement multiple; most recent 09/20/2024: MAC without issue History of urologic surgery insertion of ureteral stent 06/2024 History of biopsy thyroid -benign. Port-A-Cath in place (08/10/24) Insertion of Access Port with Fluoroscopy into Left Subclavian S/P biopsy 06/26/24 - abdominal/pelvis biopsy Hx of lithotripsy Per records, patient unaware History of colonoscopy History of robot-assisted laparoscopic hysterectomy (03/06/20) + BSO History of tooth extraction Age 17 - [place] [facility] Family History Aunt , Passed age 88 of natural causes Breast cancer, Onset Age: 80 Mother , Passed age 69 of [place] Heart disease Myocardial infarction Hypertension Father , Passed age 89 of natural causes No problems noted. Sister Esophageal cancer, Onset Age: 64 Had treatment, doing well now Sister No problems noted. Sister No problems noted. Son No problems noted. Other Diabetes No family history of adverse response to anesthesia Denies family history of Ovarian cancer Prostate cancer Lung cancer Colorectal cancer Social History (Updated 12/26/24 @ 21:43 by Marco Rodriguez MD) Smoking Status: Former smoker Age Started Using Tobacco: 17; Age Quit Using Tobacco: 35; packs per day: 1; Second Hand Exposure: Yes (has as child); Hx Alcohol Use: Yes Alcohol type: beer and wine Alcohol Intake Frequency: Monthly or Less Alcohol Intake Frequency Comment: once or twice a week Hx Substance Use: No Preferred Language: Nepali Communication Ability: Effective Visual Impairment: No Limitations Hearing Ability: Normal Newspaper Inserter Required: No Beliefs That Will Affect Care: None marital status: Single Current Living Situation: Alone Current Living Situation Comment: 2 story house current occupational status: retired 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 How many Children do You have: 1 Other Information That Helps Us Care for You: No Feels Safe at Home: Yes Safety Concerns: Feels Safe At This Time Childhood Exposure to Second-Hand Smoke: Yes Diet: regular Diet Comment: regular caffeine: Yes (coffee morning) during the past year weight has: remained stable Dental Care, Regularly: Yes Physical Activity Frequency: 3-4 Times per Week Seatbelt Use: always Sunscreen Use: Yes Assistive Devices: Cane Review of Systems Review of Systems: All systems reviewed & are unremarkable except as noted in HPI & below Constitutional: as per Subjective / HPI Eyes: as per Subjective / HPI Ear, Nose, Mouth, Throat: as per Subjective / HPI Respiratory: as per Subjective / HPI Cardiovascular: as per Subjective / HPI Gastrointestinal: as per Subjective / HPI Genitourinary: as per Subjective / HPI Musculoskeletal: as per Subjective / HPI Integumentary: as per Subjective / HPI Neurologic: as per Subjective / HPI Psychiatric: as per Subjective / HPI Endocrine: as per Subjective / HPI Hematologic / Lymphatic: as per Subjective / HPI Allergy / Immunological: as per Subjective / HPI Physical Exam Constitutional: WD/WN, vitals as above Eyes: PERRL, conjunctivae normal, anicteric sclerae ENMT: external ear and nose normal, oropharynx normal Neck: trachea midline, no thyromegaly Respiratory: normal respiratory effort, lungs clear to auscultation Cardiovascular: RRR, no murmur, no edema Gastrointestinal (Abdomen): normal bowel sounds, soft, nontender, no hepatosplenomegaly Musculoskeletal: no cyanosis or clubbing, extremities motor strength 5/5 Skin: no rashes, warm and dry Neurologic: patellar DTR's 2+ bilat, sensation intact Psychiatric: A+Ox3, euthymic affect Results & Data Vital Signs (Past 12 Hours) Vital Signs Temp Pulse Pulse Resp BP BP Pulse Ox 12/27/24 07:33 36.6 C 100 H 23 145/75 H 96 12/27/24 02:45 36.5 C 96 H 19 130/61 95 12/26/24 23:02 36.6 C 97 H 18 126/70 92 12/26/24 22:00 95 H O2 Del Method 12/27/24 07:33 Room Air 12/27/24 02:45 Room Air 12/26/24 23:02 Room Air 12/26/24 22:00
[2024-12-27] MEDS: ONDANSETRON INJ 2 MG/ML 2 ML VIAL IV PRN (09:13)
[2024-12-27] MEDS: FILGRASTIM 480 MCG/1.6 ML VIAL SC ONE (10:29)
--- NOTE | 2024-12-27 12:20 | Hospitalist Progress Note ---
Date of Service December 27, 2024 Assessment & Plan (1) Hypotension: (2) Nausea & vomiting: (3) Generalized weakness: (4) Hypomagnesemia: (5) Neuropathy: (6) Endometrial cancer: (7) Adrenal insufficiency due to cancer therapy: (8) History of DVT (deep vein thrombosis): (9) S/P ureteral stent placement: (10) Neutropenia: Plan Pleasant 74yo female with recurrent endometrial cancer discovered in 05/2024 , followed by Dr. Jaskaran Dumont and also by CO[employer] TECHNICIAN-oncology at [facility] - s/p cycle 6 of carboplatin, paclitaxel and pembrolizumab on 11/22/2024. Initial endometrial cancer diagnosis was in 2019 when she underwent robotically- assisted laparoscopic hysterectomy and BSO. She subsequently underwent radiation therapy but did not receive chemotherapy. Recent hospital stay at [facility] from 12/16 to 12/18 due to ERIK, chemotherapy- induced pancytopenia, and strep UTI. Upon return home she was still feeling weak and had ongoing poor appetite. In addition to poor appetite and inadequate liquid intake she had nausea, some vomiting, dizziness, weakness, and feeling overall poorly. Saw her PCP on day of admission and her systolic BP was in the 80s; she was referred to the ER for evaluation. #hypotension - likely due to severe volume contraction in the setting of suspected adrenal insufficiency - -BPs improved s/p multiple fluid boluses, stress dose IV hydrocortisone, and maintenance fluids -symptoms - nausea, anorexia, fatigue, etc - ALL improved s/p steroids -can wean steroids to 25mg TID today, then 25mg BID tomorrow, then ultimately PO hydrocortisone 15mg am and 5mg pm -random cortisol level was <1 highly suggestive of adrenal insufficiency -pembrolizumab is known to cause adrenal insufficiency / immune-mediated hypophysitis -ACTH level sent before first dose of hydrocortisone was given -to my knowledge she has not been on steroid therapy in the last several weeks -given how low the cortisol level was did not perform cosyntropin stim test; further, pt's hypotension/nausea/failure to thrive/nonspecific GI symptoms/etc are c/w adrenal insufficiency -cont to hold lisinopril #severe hypomagnesemia - -likely due to combination of very poor dietary intake as well as vomiting/diarrhea -level 1.2 at admission; s/p 4 grams mag sulfate IV and now 1.7 today #h/o LLE DVT - -has been treated with Eliquis since diagnosis in 06/2024 -Eliquis on hold last 3 days in preparation for cystoscopy with ureteral stent exchange -stent exchange canceled for today; thus, resume Eliquis this am #h/o left-sided ureteral stent - -placed initially 05/2024 due to left-sided hydronephrosis - thought 2nd to external compression of left ureter by her pelvic mass (endometrial cancer) -stent then exchanged in early September 2024 -stent exchange for today was canceled; will be rescheduled in the future #recurrent stage 4 endometrial cancer - ER+ -last cycle of chemo was 11/22/24 (carboplatin, paclitaxel, and pembrolizumab) -uncertain of timing of re-imaging by heme/onc -recent chemo-induced pancytopenia -platelets have normalized -still with leukopenia & neutropenia today -recent B12, folate, Fe studies stable -cont anastrozole daily -I spoke with Dr Dumont from heme/onc who will provide a formal consult -he is aware of the new adrenal insufficiency and also advises up to 3 days of neupogen, first dose today -neutropenic precautions #neuropathy - -chemo induced (presumed) -cont gabapentin 300mg BID -could consider adding cymbalta as this is a large complaint of hers #hyperlipidemia - -checked CPK - negative -cont statin #DVT Proph - -resume Eliquis today pt's sister updated at bedside today appreciate heme/onc consult by Dr Dumont progressing very nicely will ask PT/OT to see in consult Admission and Anticipated Discharge Date Admission Date: December 26, 2024 Subjective patient feeling much better today actually has an appetite and no nausea keeping all food down no diarrhea since admission still a little dizzy here/there no dyspnea tele stable overnight Review of Systems Review of Systems: gen - no fevers cv - no cp, mild edema especially LLE pulm - no dyspnea or SANDY - 1 episode of gross hematuria today; has had such at home GI - no N/V/pain Physical Exam Physical Exam: gen - looks much better today, NAD HENT - no thrush, MMM neck - no JVD heart - RRR, s1 s2, no murmur lungs - CTA b/l abd - soft NT ND BS+; no HSM ext - trace-1+ edema LLE, trace RLE; pulses b/l feet 2+ skin - overall complexion is MUCH better today psych - a/o x 3 Results & Data Results & Data Vital Signs (Past 12 Hours) Vital Signs Temp Pulse Pulse Resp BP BP Pulse Ox 12/27/24 11:45 36.7 C 96 H 18 135/77 97 12/27/24 11:37 101 H 12/27/24 07:33 36.6 C 100 H 23 145/75 H 96 12/27/24 02:45 36.5 C 96 H 19 130/61 95 O2 Del Method 12/27/24 11:45 Room Air 12/27/24 11:37 12/27/24 07:33 Room Air 12/27/24 02:45 Room Air Laboratory Results Laboratory Results - last 48 hr 12/26/24 12/26/24 12/26/24 11:37 11:38 13:55 WBC 3.82 L RBC 2.91 L Hgb 9.8 L Hct 28.3 L MCV 97.3 MCH 33.7 MCHC 34.6 RDW Std Deviation 55.1 H RDW Coeff of Nico 15.5 H Plt Count 154 MPV 10.3 Immature Gran % (Auto) 0.3 Neut % (Auto) 35.8 Lymph % (Auto) 39.0 [place] % (Auto) 21.5 Eos % (Auto) 2.6 Baso % (Auto) 0.8 Neut # (Auto) 1.37 L Lymph # (Auto) 1.49 [place] # (Auto) 0.82 H Eos # (Auto) 0.10 Baso # (Auto) 0.03 Immature Gran # (Auto) 0.01 PT 12.4 H INR 1.2 H APTT 32 H PTT Ratio 1.2 Sodium 138 Potassium 3.5 Chloride 107 Carbon Dioxide 24 Anion Gap 7 BUN 13 Creatinine 1.17 Est Cr Clr Drug Dosing Not Reportable eGFR 48.66 BUN/Creatinine Ratio 11.1 Glucose 114 H Lactate 1.0 Calcium 9.8 Magnesium 1.2 L Total Bilirubin 0.7 AST 24 ALT 19 Alkaline Phosphatase 62 Total Creatine Kinase Troponin I High Sens 8.8 Total Protein 5.5 L Albumin 3.4 Globulin 2.1 L Albumin/Globulin Ratio 1.6 Procalcitonin 0.05 Random Cortisol 0.44 Urine Color Yellow Urine Appearance Clear Urine pH 7.0 Ur Specific [place] 1.006 Urine Protein 2+ H Urine Glucose (UA) Negative Urine Ketones Negative Urine Blood 2+ H Urine Nitrite Negative Urine Bilirubin Negative Urine Urobilinogen Negative Ur Leukocyte Esterase 3+ H Urine WBC (Auto) 21-50 H Urine RBC (Auto) 0-2 U Hyaline Cast (Auto) 3-5 H U Epithel Cells (Auto) 0-2 Urine Bacteria (Auto) None Seen Urine Comment SARS-CoV-2 (PCR) 12/27/24 12/27/24 05:33 Unknown WBC 1.65 L RBC 2.69 L Hgb 8.8 L Hct 26.1 L MCV 97.0 MCH 32.7 MCHC 33.7 RDW Std Deviation 53.4 H RDW Coeff of Nico 14.9 H Plt Count 155 MPV 10.6 Immature Gran % (Auto) 0.6 Neut % (Auto) 65.4 Lymph % (Auto) 26.1 [place] % (Auto) 7.3 Eos % (Auto) 0.0 Baso % (Auto) 0.6 Neut # (Auto) 1.08 L Lymph # (Auto) 0.43 L [place] # (Auto) 0.12 Eos # (Auto) 0.00 Baso # (Auto) 0.01 Immature Gran # (Auto) 0.01 PT INR APTT PTT Ratio Sodium 140 Potassium 4.2 Chloride 114 H Carbon Dioxide 20 L Anion Gap 6 BUN 13 Creatinine 0.78 D Est Cr Clr Drug Dosing 65.1 eGFR 79.16 BUN/Creatinine Ratio 16.7 Glucose 148 H Lactate Calcium 8.6 Magnesium 1.7 Total Bilirubin AST ALT Alkaline Phosphatase Total Creatine Kinase 43 Troponin I High Sens Total Protein Albumin Globulin Albumin/Globulin Ratio Procalcitonin Random Cortisol Urine Color Urine Appearance Urine pH Ur Specific [place] Urine Protein Urine Glucose (UA) Urine Ketones Urine Blood Urine Nitrite Urine Bilirubin Urine Urobilinogen Ur Leukocyte Esterase Urine WBC (Auto) Urine RBC (Auto) U Hyaline Cast (Auto) U Epithel Cells (Auto) Urine Bacteria (Auto) Urine Comment SARS-CoV-2 (PCR) NEGATIVE PG Care Time/CCT Total # of Minutes Spent Total Time Spent with Patient: Total time spent is greater than 50% in coordination of care (as documented) at patient's floor/unit and/or counseling patient: Coding Level of Care Code 46543 SUB INP/OBS CARE 3/50MIN Diagnoses Hypotension I95.9 Nausea & vomiting R11.2 Generalized weakness R53.1 Hypomagnesemia E83.42 Neuropathy G62.9 Endometrial cancer C54.1 Adrenal insufficiency due to cancer therapy E27.3 History of DVT (deep vein thrombosis) Z86.718 S/P ureteral stent placement Z96.0 Neutropenia D70.9
[2024-12-27] MEDS: APIXABAN 5 MG TABLET PO SCH (13:08)
--- NOTE | 2024-12-27 14:21 | Electrocardiogram Report ---
Test Reason : Blood Pressure : */* mmHG Vent. Rate : 92 BPM Atrial Rate : 92 BPM P-R Int : 170 ms QRS Dur : 100 ms QT Int : 364 ms P-R-T Axes : 56 -9 56 degrees QTcB Int : 450 ms Normal sinus rhythm Normal ECG When compared with ECG of 16-Dec-2024 16:25, No significant change was found Confirmed by Wolfgang Galvan ([id number]) on 12/27/2024 2:21:13 PM Referred By: REFERRED SELF Confirmed By: Wolfgang Galvan
[2024-12-27] MEDS: HYDROCORTISONE SOD 25 MG in SYRINGE 0 ML IV SCH (16:29)
[2024-12-27] MEDS: GABAPENTIN 300 MG CAP PO SCH (20:11)
[2024-12-28 07:10] LABS: Hematocrit (blood only) 23.7 % (37.0-47.0); Hemoglobin 8.1 g/dl (12.0-16.0); Mean Corpuscular Hemoglobin 34.2 pg (25.0-34.0); Mean Corpuscular Volume 100.0 fL (80.0-100.0); Platelet Count 141 K/uL (130-400); RDW Standard Deviation 58.1 fL (36.4-46.3); Red Blood Count 2.37 M/uL (4.20-5.40); White Blood Count 10.02 K/ul (4.8-10.8)
[2024-12-28 07:32] LABS: Immature Granulocytes # (auto) 0.80 K/uL (0.01-0.20); Immature Granulocytes % (auto) 8.0 %
[2024-12-28 07:43] LABS: Anion Gap 5.0 (3-11); Blood Urea Nitrogen 20.0 mg/dl (6-23); Calcium 8.7 mg/dl (8.6-10.3); Carbon Dioxide 22.0 mmol/L (21-32); Chloride 115.0 mmol/L (98-107); Creatinine Clr Calc Pharmacy 64.7 ml/min; Glucose 131.0 mg/dl (70-99(Fasting)); Potassium 4.1 mmol/L (3.5-5.1); Sodium 142.0 mmol/L (136-145)
[2024-12-28] MEDS: HYDROCORTISONE 10 MG TAB PO SCH ×2 (08:55→16:52)
[2024-12-28 11:23] VITALS: O2SAT 97
[2024-12-28] MEDS: HEPARIN 100 UNIT/ML 5ML FLUSH FLUSH PRN (15:46)
[2024-12-28 16:01] LABS: Hematocrit (blood only) 26.8 % (37.0-47.0); Hemoglobin 9.1 g/dl (12.0-16.0)
--- NOTE | 2024-12-28 18:40 | Ultrasound Report ---
EXAM: US venous doppler LE CLINICAL HISTORY: h/o DVT LLE; worsening edema. TECHNIQUE: Ultrasound examination of left lower extremity veins was performed in real time and duplex. One or more of the following were performed- spectral analysis, resistive index, waveform analysis, and pulsed Doppler. COMPARISON: US dated 06/25/2024. FINDINGS: Common Femoral Vein (CFV): Evidence of chronic, thrombus involving the left common femoral vein to the level of the proximal superficial femoral vein. The thrombus is occlusive at the proximal common femoral vein and partially occlusive in the distal common femoral/GSV junction and proximal femoral vein. The vein is non-compressible at this level. Superficial Femoral Vein (SFV): Mid and distal superficial femoral veins demonstrate normal compressibility. Normal spontaneous, phasic, and non-pulsatile venous flow is present. Augmentation of flow is noted with distal compression. Popliteal Vein: Normal compressibility. Normal phasic and spontaneous venous flow. Augmentation of flow is noted with distal compression. Posterior Tibial Veins: Normal compressibility. Normal phasic and spontaneous venous flow. Greater Saphenous Vein (GSV): Patent in the current examination. Additional Findings: Mild subcutaneous edema is noted in the lower leg. IMPRESSION: 1. Evidence of chronic, thrombus involving the left common femoral vein to the level of the proximal superficial femoral vein. The thrombus is occlusive at the proximal common femoral vein and partially occlusive in the distal common femoral/GSV junction and proximal femoral vein. Interval regression. 2. Recanalization of the mid and distal superficial femoral veins and the greater saphenous vein since the prior study dated 06/25/2024; these segments are now patent with normal compressibility and flow. 3. No evidence of acute DVT in the mid and distal superficial femoral, popliteal, or posterior tibial veins. 4. Mild subcutaneous edema in the lower legs. 5. When compared to the prior examination dated 06/25/2024, the greater saphenous vein and the mid to distal superficial femoral veins now appear patent with normal compressibility and flow, whereas previously these were involved with occlusive thrombus. The left common femoral vein shows evidence of occlusion at the proximal segment and partial occlusion in the distal segment. Disclaimer: DVT could be missed early in the disease when clot burden is minimal. For patients with moderate and high pretest probability of DVT and negative ultrasound, the [employer] clinical guidelines recommend testing with a D-dimer assay or repeat ultrasound in 5-7 days. If symptoms worsen, the Society of radiologists in ultrasound recommends repeating ultrasound even earlier. Electronically signed by Jovani Natarajan 12-28-2024 6:40 PM
--- NOTE | 2024-12-28 19:22 | Discharge Summary ---
Discharge Summary Date of Service December 28, 2024 Principal Dx & Hospital Course #1 = Principal Diagnosis (1) Hypotension: (2) Nausea & vomiting: (3) Generalized weakness: (4) Hypomagnesemia: (5) Neuropathy: (6) Endometrial cancer: (7) Adrenal insufficiency due to cancer therapy: (8) History of DVT (deep vein thrombosis): (9) S/P ureteral stent placement: (10) Neutropenia: Plan Pleasant 74yo female with recurrent endometrial cancer discovered in 05/2024 , followed by Dr. Jaskaran Dumont and also by [facility]-oncology at [facility] - s/p cycle 6 of carboplatin, paclitaxel and pembrolizumab on 11/22/2024. Initial endometrial cancer diagnosis was in 2019 when she underwent robotically- assisted laparoscopic hysterectomy and BSO. She subsequently underwent radiation therapy but did not receive chemotherapy. Recent hospital stay at [facility] from 12/16 to 12/18 due to ERIK, chemotherapy- induced pancytopenia, and strep UTI. Upon return home she was still feeling weak and had ongoing poor appetite. In addition to poor appetite and inadequate liquid intake she had nausea, some vomiting, dizziness, weakness, and feeling overall poorly. Saw her PCP on day of admission and her systolic BP was in the 80s; she was referred to the ER for evaluation. #hypotension - likely due to severe volume contraction in the setting of suspected adrenal insufficiency - -BPs improved s/p multiple fluid boluses, stress dose IV hydrocortisone, and maintenance fluids -symptoms - nausea, anorexia, fatigue, etc - ALL improved s/p steroids -can wean steroids to 25mg TID today, then 25mg BID tomorrow, then ultimately PO hydrocortisone 15mg am and 5mg pm -random cortisol level was <1 highly suggestive of adrenal insufficiency -pembrolizumab is known to cause adrenal insufficiency / immune-mediated hypo physitis -ACTH level sent before first dose of hydrocortisone was given -to my knowledge she has not been on steroid therapy in the last several weeks -given how low the cortisol level was did not perform cosyntropin stim test; further, pt's hypotension/nausea/failure to thrive/nonspecific GI symptoms/etc are c/w adrenal insufficiency -cont to hold lisinopril #severe hypomagnesemia - -likely due to combination of very poor dietary intake as well as vomiting/diarrhea -level 1.2 at admission; s/p 4 grams mag sulfate IV and now 1.7 today #h/o LLE DVT - -has been treated with Eliquis since diagnosis in 06/2024 -Eliquis on hold last 3 days in preparation for cystoscopy with ureteral stent exchange -stent exchange canceled for today; thus, resume Eliquis this am #h/o left-sided ureteral stent - -placed initially 05/2024 due to left-sided hydronephrosis - thought 2nd to external compression of left ureter by her pelvic mass (endometrial cancer) -stent then exchanged in early September 2024 -stent exchange for today was canceled; will be rescheduled in the future #recurrent stage 4 endometrial cancer - ER+ -last cycle of chemo was 11/22/24 (carboplatin, paclitaxel, and pembrolizumab) -uncertain of timing of re-imaging by heme/onc -recent chemo-induced pancytopenia -platelets have normalized -still with leukopenia & neutropenia today -recent B12, folate, Fe studies stable -cont anastrozole daily -I spoke with Dr Dumont from heme/onc who will provide a formal consult -he is aware of the new adrenal insufficiency and also advises up to 3 days of neupogen, first dose today -neutropenic precautions #neuropathy - -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 Jaskaran Dumont and also by [facility]-oncology at [facility] - s/p cycle 6 of carboplatin, paclitaxel and pembrolizumab on 11/22/2024. Initial endometrial cancer diagnosis was in 2019 when she underwent robotically- assisted laparoscopic hysterectomy and BSO. She subsequently underwent radiation therapy but did not receive chemotherapy. Recent hospital stay at [facility] from 12/16 to 12/18 due to ERIK, chemotherapy- induced pancytopenia, and strep UTI. Upon return home she was still feeling weak and had ongoing poor appetite. Patient states that at times she feels hungry but as soon as she tries to eat s he either feels full or has nausea. Drinking less than 30 ounces of fluid/day and eating very little. There have been episodes of vomiting. Denies any abdominal pain. Denies fevers or chills. Denies diarrhea. Has had some mild edema of both legs. Reports dizziness with standing over the last 1-2 weeks. She has generalized weakness. She reports that she was supposed to have ureteral stent exchange tomorrow by Dr Alicea from [facility] [place] [facility]. She has been holding her Eliquis for the last 3 days in preparation for this procedure. Today she went and saw her PCP for hospital follow-up from the 12/16-12/18 hospitalization. BP was 83/58. Given her BP and ongoing symptoms she was advised to come to the ER for evaluation. Discharge Exam gen - looks much better today, NAD HENT - no thrush, MMM neck - no JVD heart - RRR, s1 s2, no murmur lungs - CTA b/l abd - soft NT ND BS+; no HSM ext - trace-1+ edema LLE, trace RLE; pulses b/l feet 2+ skin - overall complexion is MUCH better today psych - a/o x 3 Discharge Plan Discharge Items Patient Disposition: Home - Self-Care Reason For Visit: HYPOTENSION, DEHYDRATION, HYPOMAGNESEMIA Discharge Diagnosis: 1. severe hypotension (low blood pressure) - due to adrenal insufficiency & dehydration 2. dehydration - resolved 3. low magnesium - resolved 4. nausea - likely due to adrenal insufficiency 5. new diagnosis of adrenal insufficiency 6. left ureteral stent 7. history of DVT - on Eliquis 8. blood in urine, intermittent 9. low white blood cell count - resolved; due to previous chemotherapy 10. anemia - chronic Activity: As commented below Activity Comment: gradually increase your activity as tolerated over the next 3- 5 days Non-emergency contact: Primary Care Provider and Oncologist Call non-emergency contact if: you have any medication questions, your symptoms worsen and you have a fever Follow-up/Referrals: Tristen Disla CRNP [Primary Care Provider] - Kenneth Rios MD [Physician] - (we will make a referral for you to see endocrinology for the adrenal insufficiency ) Jaskaran Dumont MD [Physician] - (keep any previously scheduled appointment with Dr Dumont ) Diet: Regular Addtl Attending Provider Instructions: Ms Geller, You were hospitalized due to dehydration, low blood pressure, nausea, vomiting, fatigue, and feeling unwell. Testing showed that you likely have adrenal insufficiency. It is suspected that your immunotherapy for your cancer may have caused the adrenal insufficiency (see handout). All symptoms improved rapidly with IV fluids and hydrocortisone (steroid). Hydrocortisone is the most common steroid used to treat adrenal insufficiency. Dr Dumont saw you in consult and recommended a dose of Neupogen for your low white blood cell count. Your white count did return to normal while here. Your ultrasound of the left leg shows that the previous blood clots are getting smaller/resolving. There are no new clots in the left leg. Recommendations - 1. Hydrocortisone - take as follows: -Tuesday, 12/29 - take 4 tablets in the morning, and 4 tablets in the afternoon (about 4-5pm) -Tuesday, 12/30 - take 4 tablets in the morning, and 3 tablets in the afternoon -Tuesday, 12/31 - take 3 tablets in the morning, and 2 tablets in the afternoon -Tuesday, 01/01 and all days thereafter - take 3 tablets in the morning, and 1 tablet in the afternoon 2. Hold your lisinopril for now. 3. Check your blood pressure daily. If you are consistently less than 140 sy stolic (the "top" number) continue to hold the lisinopril. If the systolic reading is consistently greater than 140 you can resume the lisinopril. 4. Dr Alicea is aware of the blood in the urine. He will investigate this thoroughly with your next cystoscopy. His office will be calling you to schedule the next cystoscopy and stent exchange. 5. Resume/continue your Eliquis twice daily as previous. 6. Per PT recommendations please use a walker when ambulating at home as well as when you leave your home. 7. Take magnesium oxide 400mg once daily. Return to [facility] if - * you have fevers over 100 degrees * you have worsening shortness of breath * you have chest pains * you have severe diarrhea (3 or more liquid stools over 24 hours) * you have severe dizziness * you have severe nausea/vomiting not responding to your nausea medicines * any other concerns It was our pleasure to care for you! -Marco Rodriguez, Hospitalist Pending Studies at Discharge: Yes Studies:: ACTH level (pituitary hormone that regulates the adrenal gland) Stand-Alone Forms: My [facility], Smoking Cessation Medications and DC Order Prescriptions: New hydrocortisone 5 mg tablet 5 mg PO .BID as directed Qty: 120 5RF magnesium oxide 400 mg magnesium tablet 400 mg PO DAILY Qty: 30 5RF Continued multivitamin Tablet 1 tab PO QPM Patient Comments: 12/16- otc unable to verify Eliquis 5 mg tablet 5 mg PO BID Qty: 60 3RF Hold Instructions: Resume on 08/11/24. You may resume at 10:00 on Tuesday atorvastatin 20 mg tablet 20 mg PO HS Qty: 90 3RF ondansetron 8 mg tablet,disintegrating 8 mg PO Q8H PRN (Reason: nausea and vomiting) Qty: 30 0RF olanzapine 2.5 mg tablet 2.5 mg PO UD PRN (Reason: Nausea/chemotherapy) prochlorperazine maleate [Compazine] 10 mg tablet 10 mg PO Q6H PRN (Reason: Nausea) anastrozole [Arimidex] 1 mg tablet 1 mg PO DAILY cholecalciferol (vitamin D3) [Vitamin D3] 10 mcg (400 unit) Capsule 0 mcg PO QPM Patient Comments: 12/26- OTC unknown dose Changed gabapentin 300 mg capsule 300 mg PO BID Qty: 0 0RF Held lisinopril [Zestril] 5 mg tablet 5 mg PO QAM Qty: 90 1RF Hold Instructions: hold unless your systolic blood pressure ("top" number) is consistently >140 dexamethasone 4 mg tablet 20 mg PO UD PRN (Reason: chemotherapy) Hold Instructions: hold unless Dr Dumont recommends taking in the future Discharge Orders: Discharge Order (Routine); Ordered 12/28/24 Ordered By: Marco Naidu/Other Patient Handouts: Secondary Adrenal Insufficiency Admission Data Admit Date/Time: 12/26/24 15:11 Attending Provider: Marco Rodriguez Admit Provider: Marco Rodriguez Primary Care Provider: Tristen Disla Other Providers: Marco Rodriguez; Jaskaran Dumont Hospital Stay Data Consultations 12/26/24 13:48 ED Decision to Admit Stat 12/27/24 09:02 Consult Hematology Routine Procedures Performed Operation Date: 12/27/24 13:15 <No data on this case meets the specified criteria> Diagnostic Imagining Performed 12/28/24 15:12 US venous doppler LE LT Urgent Pending Results Patient Have Any Pending Studies at Discharge: Yes Discharge Instructions Given to Patient (Per Discharging Provider) Ms Geller, Zhou were hospitalized due to dehydration, low blood pressure, nausea, vomiting, fatigue, and feeling unwell. Testing showed that you likely have adrenal insufficiency. It is suspected that your immunotherapy for your cancer may have caused the adrenal insufficiency (see handout). All symptoms improved rapidly with IV fluids and hydrocortisone (steroid). Hydrocortisone is the most common steroid used to treat adrenal insufficiency. Dr Dumont saw you in consult and recommended a dose of Neupogen for your low white blood cell count. Your white count did return to normal while here. Your ultrasound of the left leg shows that the previous blood clots are getting smaller/resolving. There are no new clots in the left leg. Recommendations - 1. Hydrocortisone - take as follows: -Tuesday, 12/29 - take 4 tablets in the morning, and 4 tablets in the afternoon (about 4-5pm) -Tuesday, 12/30 - take 4 tablets in the morning, and 3 tablets in the afternoon -Tuesday, 12/31 - take 3 tablets in the morning, and 2 tablets in the afternoon -Tuesday, 01/01 and all days thereafter - take 3 tablets in the morning, and 1 tablet in the afternoon 2. Hold your lisinopril for now. 3. Check your blood pressure daily. If you are consistently less than 140 systolic (the "top" number) continue to hold the lisinopril. If the systolic reading is consistently greater than 140 you can resume the lisinopril. 4. Dr Alicea is aware of the blood in the urine. He will investigate this thoroughly with your next cystoscopy. His office will be calling you to schedule the next cystoscopy and stent exchange. 5. Resume/continue your Eliquis twice daily as previous. 6. Per PT recommendations please use a walker when ambulating at home as well as when you leave your home. 7. Take magnesium oxide 400mg once daily. Return to [facility] if - * you have fevers over 100 degrees * you have worsening shortness of breath * you have chest pains * you have severe diarrhea (3 or more liquid stools over 24 hours) * you have severe dizziness * you have severe nausea/vomiting not responding to your nausea medicines * any other concerns It was our pleasure to care for you! -Marco Rodriguez, Hospitalist Coding Diagnoses Hypotension I95.9 Nausea & vomiting R11.2 Generalized weakness R53.1 Hypomagnesemia E83.42 Neuropathy G62.9 Endometrial cancer C54.1 Adrenal insufficiency due to cancer therapy E27.3 History of DVT (deep vein thrombosis) Z86.718 S/P ureteral stent placement Z96.0 Neutropenia D70.9
[2024-12-28 19:39] VITALS: BP 160/79; PULSE 94; RESP 18; TEMP 97.9
== END 2024-12-28 20:10 | disposition home or self-care (01) | DRG 644 ==
LOC: ED 11:18 → 2S 15:11